=== PATIENT | male | born 1935 | race Caucasian/White ===

== ENCOUNTER 2023-01-03 09:06 | Outpatient (CLI) | payer MEDICARE, SELFPAY | END 2023-01-03 09:07 | disposition home or self-care (01) | LOC: LONREF 09:07 | PROVIDERS: PCP Family Medicine; Visit Provider Family Medicine | DX: Z00.00 Encounter for general adult medical examination without abnormal findings (principal); Z13.1 Encounter for screening for diabetes mellitus | CPT/HCPCS: 80048 ==

== ENCOUNTER 2023-11-16 13:41 | Outpatient (CLI) | payer MEDICARE, SELFPAY | END 2023-11-16 13:42 | disposition home or self-care (01) | LOC: NFLDUCREF 13:42 | PROVIDERS: PCP Family Medicine; Visit Provider Physician Assistant | DX: R06.02 Shortness of breath (principal) | CPT/HCPCS: 84484; 85379 ==

== ENCOUNTER 2024-11-28 16:15 | Inpatient (IN) | payer MEDICARE, SELFPAY ==
[2024-11-28] VITALS (51 sets, daily range): BP systolic 101–170; BP diastolic 47–128; PULSE 123–169; RESP 15–30; TEMP 36.6–37.1; O2SAT 90–97; BMI 26.3
--- OUTSIDE RECORDS SUMMARY | 2024-11-28 16:17 | XMS_ITS | Clinical Summary ---
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 30 tablet 11 08/12/2014 Active lisinopril (PRINIVIL; ZESTRIL) 10 mg tabletIndications :Unspecified essential hypertension Take 1 tablet by mouth once daily. 30 tablet 11 08/12/2014 Active Active Problems Problem Noted Date Diagnosed Date Pain in joint, shoulder region 09/18/2007 Unspecified essential hypertension 07/12/2007 Immunizations Immunization Administration Dates Next Due Td, Preservative Free (age >= 7 Years) 8 Family History Medical History Relation Name Comments Other Brother 5 two infanc y, 2 in 70-'s not sure reason Other Father d81 cancer Other Mother d96 Other Sister 5 d65 [place] Heart Disease Son congenital. 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 Gender Identity Not on file Sexual Orientation Not on file Occupation Industry Job Start Date Job End Date [email or web address] Not on file Not on file Not on file Obstetrics History Last Filed Vital Signs Vital Sign Reading Time Taken Comments Blood Pressure 177/97 08/12/2014 1:08 PM CDT Pulse 110 08/12/2014 1:04 PM CDT Temperature 36.4 C (97.6 F) 07/12/2007 9:59 AM CDT Respiratory Rate - - Oxygen Saturation 96% 08/12/2014 1:04 PM CDT Inhaled Oxygen Concentration - - Weight 79.6 kg (175 lb 6.4 oz) 08/12/2014 1:04 P M CDT Height 165.1 cm (5' 5) 08/12/2014 1:04 PM CDT Body Mass Index 29.19 08/12/2014 1:04 PM CDT Plan of Treatment Health Maintenance Due Date Last Done Comments Depression screening for age 12+ 1949 BMI (ht and wt on same day) for age 18+ 08/09/1955 Pneumococcal series for age 50+ (1 of 1 - PCV) 08/09/1987 Zoster (shingles) series for age 50+ (1 of 2) 08/09/1987 RSV vaccine for adults or (1 - 1-dose 75+ series) 2012 Tetanus booster 07/11/2017 07/12/2007 COVID-19 vaccine series (1 - 2023- season) 2024 Influenza Vaccine (#1) 2024 Hepatitis B series for 19+ Aged Out N o longer eligible based on patient's age to complete this topic Insurance BLUE CROSS [employer] BLUE MR [place] ONLY Care Teams Fire Extinguisher Inspector Relationship Specialty Start Date End Date Votel, Wm Robles MD [address] [place] [address] PCP - General Family Practice 08/05/14
--- NOTE | 2024-11-28 17:17 | CRLHL7_ITS ---
For Patients: As a result of the Century Cures Act, medical imaging exams and procedure reports are released immediately into your electronic medical record. You may view this report before your referring provider. If you have questions, please contact your health care provider. INDICATION: Atrial fibrillation. TECHNIQUE: Chest 1 view. COMPARISON: 11/16/2023. FINDINGS: Cardiovascular and mediastinum: Normal heart size. Atherosclerotic thoracic aorta. Lungs and pleural spaces: Bibasilar opacities. Blunting of both costophrenic angles. No pneumothorax. Bones and soft tissues: Unremarkable for age. IMPRESSION: Bibasilar opacities with blunting of both costophrenic angles may represent pulmonary edema and/or atelectasis with small pleural effusions. Multifocal infection could also appear similar. Dictated by Jonathan Ku MD @ 11/28/2024 6:25:44 PM (Electronically Signed)
[2024-11-28 17:24] LABS: Lactate Sepsis w/Reflex* 1.5 mmol/L (0.5-1.9)
[2024-11-28] MEDS: dilTIAZem 5 MG/ML inj 10 MG IVP ×2 (17:25→18:42)
--- NOTE | 2024-11-28 17:30 | ED.GENADULT ---
HPI - General Adult General Date Seen: 11/28/24 Chief complaint: Arrhythmia/Palpitations Stated complaint: swollen legs, dark/red urine Time Seen by Provider: 11/28/24 17:04 History of Present Illness HPI narrative: Patient is an 89-year-old brought in by his and daughter. His says that she was concerned this morning diffuse she noted that his urine was very dark and looked bloody. Also, she said that she was going to put some ointment on a couple of bug bites to that he had, and when he pulled up his pant legs today so that she could do that she noticed that he had a lot of swelling in his legs which she says is not normal for him. She is not sure how long the been swollen. Patient himself is hard of hearing but does answer questions, he is quite taciturn, gives me one-word responses to the majority of my questions. He was noted to be tachycardic in triage, he says that he can feel that his heart is going faster than usual but he is not sure how long that it has been going on. He denies any chest pain or shortness of breath. He does not have much comment on his legs. Denies prior hematuria. Denies any abdominal or back pain. No fevers. No orthopnea or PND. Does not smoke. He is not anticoagulated. No prior history of atrial fibrillation. Related Data Home Medications ?Medication ?Instructions ?Recorded ?Confirmed calcium carbonate (Calcium 500) 500 mg PO QDAY 01/03/23 11/16/23 cholecalciferol (vitamin D3) 125 125 mcg PO QDAY 01/03/23 11/16/23 mcg (5,000 unit) capsule multivitamin 1 tab PO QDAY 01/03/23 11/16/23 Allergies Allergy/AdvReac Type Severity Reaction Status Date / Time No Known Drug Allergies Allergy Unverified 11/16/23 13:00 Review of Systems Status of ROS: Reports: 10 or more systems reviewed and unremarkable except as noted in History and below [facility] Medical History (Updated 11/28/24 @ 20:42 by Nichole Harp MD) 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 - Other specified disorders of peritoneum (ICD-10) Elevated LFTs ?R79.89 - Other specified abnormal findings of blood chemistry (ICD-10) Hearing loss ?H91.90 - Unspecified hearing loss, unspecified ear (ICD-10) 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 - Spinal stenosis, lumbar region without neurogenic claudication (ICD-10) Vitiligo ?L80 - Vitiligo (ICD-10) Family history of colon cancer ?Z80.0 - Family history of malignant neoplasm of digestive organs (ICD-10) Carpal tunnel syndrome ?G56.00 - Carpal tunnel syndrome, unspecified upper limb (ICD-10) Family History Other Colon cancer Social History What is your current living situation?: declined to answer Problems where you live: declined to answer In the past 12 months, utilities in danger of being shut off: declined to answer In past 12 months, lack of transportation kept you from medical appts, meetings, work, or getting things needed for daily living: declined to answer In the past 12 mos, have been you worried that your food would run out before you had money to buy more?: declined to answer In the past 12 mos, the food you bought just didn't last and you didn't have money to buy more?: declined to answer How often does anyone, including family, friends and others, physically hurt you: decline to answer How often does anyone, including family, friends and others, insult or talk down to you: decline to answer How often does anyone, including family, friends and others, threaten you with harm: decline to answer How often does anyone, including family, friends and others, scream or curse at you: decline to answer Health Related Social Needs: unsheltered homelessness (Z59.02) Exam Narrative: Exam Narrative: Vital signs reviewed In general, alert, nontoxic elderly male. He does not appear dyspneic at all. Head: Normocephalic, atraumatic. Eyes: Sclera clear. Pupils equal and reactive. ENT: Mucous membranes moist. Neck: Supple without adenopathy. Heart: Tachycardic, regular, no obvious murmur but rate is too fast for me to really here. Lungs: Clear. No increased work of breathing, crackles or wheezes. Abdomen: Soft, nontender to palpation. Extremities: Moderate edema in both legs below the knees. No erythema, no calf tenderness. Neurologic: Alert, conversant. Speech fluent, face symmetric. Moves all extremities equally. Skin: Warm, dry well perfused. Affect: Normal. Const: Vital Signs, click to edit/add: Vital Signs - 24 hr 11/28/24 16:54 11/28/24 17:20 11/28/24 17:21 Temperature 98.7 F Pulse Rate 149 H 143 H Pulse Rate [Pulse Oximeter] 147 H Respiratory Rate 20 20 20 Blood Pressure 136/113 H Blood Pressure [Ri ght Upper Arm] 138/85 Pulse Oximetry 95 93 94 Oxygen Delivery Me od Room Air 11/28/24 17:29 11/28/24 17:30 11/28/24 17:32 Temperature Pulse Rate 158 H 166 H 140 H Pulse Rate [Pulse Oximeter] Respiratory Rate 22 21 21 Blood Pressure 129/103 H 122/90 H Blood Pressure [Ri ght Upper Arm] Pulse Oximetry 94 94 92 [facility] 17:33 11/28/24 17:45 11/28/24 17:47 Temperature Pulse Rate 155 H 152 H 129 H Pulse Rate [Pulse Oximeter] Respiratory Rate 22 23 24 Blood Pressure 121/96 H Blood Pressure [Ri ght Upper Arm] Pulse Oximetry 92 91 92 Oxygen Delivery Me od 11/28/24 18:00 11/28/24 18:02 11/28/24 18:03 Temperature Pulse Rate 160 H 123 H 132 H Pulse Rate [Pulse Oximeter] Respiratory Rate 22 24 16 Blood Pressure 132/118 H Blood Pressure [Ri ght Upper Arm] Pulse Oximetry 93 93 92 Oxygen Delivery Me od 11/28/24 18:15 11/28/24 18:18 11/28/24 18:30 Temperature Pulse Rate 137 H 146 H Pulse Rate [Pulse Oximeter] Respiratory Rate 21 20 19 Blood Pressure 118/107 H Blood Pressure [Ri ght Upper Arm] Pulse Oximetry 94 96 [facility]/28/24 18:33 11/28/24 18:34 11/28/24 18:45 Temperature Pulse Rate 137 H 136 H 159 H Pulse Rate [Pulse Oximeter] Respiratory Rate 30 H 24 23 Blood Pressure 126/106 H Blood Pressure [Ri ght Upper Arm] Pulse Oximetry 95 95 95 Oxygen Delivery Me od 11/28/24 18:47 11/28/24 18:48 11/28/24 19:15 Temperature Pulse Rate 133 H 148 H Pulse Rate [Pulse Oximeter] Respiratory Rate 22 17 Blood Pressure 122/91 H Blood Pressure [Ri ght Upper Arm] Pulse Oximetry 93 94 Oxygen Delivery Me thod 11/28/24 19:17 11/28/24 19:30 11/28/24 19:32 Temperature Pulse Rate 137 H 157 H 145 H Pulse Rate [Pulse Oximeter] Respiratory Rate 22 22 18 Blood Pressure 138/99 H 153/114 H Blood Pressure [Ri ght Upper Arm] Pulse Oximetry 92 94 94 Oxygen Delivery Me thod 11/28/24 19:45 11/28/24 19:47 11/28/24 19:48 Temperature Pulse Rate 148 H 169 H Pulse Rate [Pulse Oximeter] Respiratory Rate 21 20 16 Blood Pressure 163/128 H Blood Pressure [Ri ght Upper Arm] Pulse Oximetry 96 95 Oxygen Delivery Me thod 11/28/24 20:00 11/28/24 20:01 11/28/24 20:17 Temperature Pulse Rate 157 H Pulse Rate [Pulse Oximeter] Respiratory Rate 15 20 Blood Pressure 147/108 H 134/105 H Blood Pressure [Ri ght Upper Arm] Pulse Oximetry 92 Oxygen Delivery Mo thod 11/28/24 20:18 Temperature Pulse Rate 138 H Pulse Rate [Pulse Oximeter] Respiratory Rate 24 Blood Pressure Blood Pressure [Ri ght Upper Arm] Pulse Oximetry 94 Oxygen Delivery Me thod Course Course ED Course: After placement in the room, he had an EKG done, this shows atrial fibrillation with a rapid ventricular response, his heart rate vacillated between 140s up to 180 or so. He seems to be tolerating this well, his blood pressure is okay. He does have quite a bit of fluid in his legs, would suspect this is related to some failure due to his atrial fibrillation, diagnostic considerations include acute coronary syndrome, PE, infection, metabolic derangement, heart failure, among others. We also need to evaluate the urine, will get a UA when he is able. Labs are all reviewed, most notable for an initial troponin of 0.06, normal renal function, normal electrolytes, an elevated D-dimer of 6, an elevated BNP of 45 90. I reviewed his chest x-ray, he has what is likely vascular congestion and pulmonary edema with some effusions on both sides. Radiology reads this as bibasilar opacities with blunting of both costophrenic angles may represent pulmonary edema and/or atelectasis with small pleural effusions. Multifocal infection could also appears similar, I do not think his clinical presentation is consistent with an infectious process however. I did give him 2 doses of 10 mg of IV diltiazem, his rate was improved into the 120 is for while but is back into the 160s. He was actually kind of agitated and really wanted to leave, and I think this is partially is why his heart rate went back up. However, will try dose of metoprolol and if that is not effective then would plan to do a diltiazem drip. I was able to convince him that going home was a bad idea so he has agreed to stay. Will give 40 mg of IV Lasix. Repeat troponin is pending but I suspect that his mildly elevated troponin is related to his heart failure and tachycardia. He does not have chest pain, EKG by my review showed atrial fibrillation with a rate of [address] segment changes. I did a CT scan of the chest just to rule out pulmonary embolism given his elevated D-dimer, I did not see evidence of PE, he does have pleural effusions and pulmonary edema. Radiology report reviewed. I did a CT of the abdomen given his gross hematuria and decreased urine output does to make sure there was not an obstructive process. Radiology report reviewed, they are multiple findings but none directly related to his hematuria. He does have either pericholecystic fluid or some gallbladder wall edema, he also has anasarca and I tend to think that this is the result of his anasarca given that he is not have any abdominal pain or tenderness. Other findings reviewed, can be addressed by hospitalist if needed. Transfer to the floor after discussion with hospitalist. Vital Signs Vital signs: Initial Vital Signs Temperature 98.7 F 11/28/24 16:54 Temperature Source Temporal Artery Scan 11/28/24 16:54 Pulse Rate 147 H 11/28/24 16:54 Pulse Rhythm Irregular 11/28/24 16:54 Respiratory Rate 20 11/28/24 16:54 Blood Pressure 138/85 11/28/24 16:54 Blood Pressure Mean 102 11/28/24 16:54 Blood Pressure Position Sitting 11/28/24 16:54 Pulse Oximetry 95 11/28/24 16:54 Oxygen Delivery Method Room Air 11/28/24 16:54 Vital Signs Temperature 98.7 F 11/28/24 16:54 Pulse Rate 147 H 11/28/24 16:54 Respiratory Rate 11/28/24 16:54 Blood Pressure 138/85 11/28/24 16:54 Pulse Oximetry 95 11/28/24 16:54 Oxygen Delivery Method Room Air 11/28/24 16:54 Temperature 98.7 F 11/28/24 16:54 Pulse Rate 138 H 11/28/24 20:18 Respiratory Rate 24 11/28/24 20:18 Blood Pressure 134/105 H 11/28/24 20:17 Pulse Oximetry 94 11/28/24 20:18 Oxygen Delivery Method Room Air 11/28/24 16:54 Medications Administered Medications: Discontinued Medications Generic Name Dose Route Start Last Admin Trade Name Freq PRN Reason Stop Dose Admin Diltiazem HCl 10 mg 11/28/24 17:17 11/28/24 17:25 Diltiazem 5 Mg/Ml Inj IVP 11/28/24 17:18 10 mg ONCE ONE Administration Diltiazem HCl 10 mg 11/28/24 18:36 11/28/24 18:42 Diltiazem 5 Mg/Ml Inj IVP 11/28/24 18:37 10 mg ONCE ONE Administration Furosemide 40 mg 11/28/24 20:02 11/28/24 20:14 Furosemide 10 Mg/Ml Inj IVP 11/28/24 20:03 40 mg ONCE ONE Administration Metoprolol Tartrate 5 mg 11/28/24 20:02 11/28/24 20:11 Metoprolol Tartrate 1 Mg/Ml Inj IVP 11/28/24 20:03 5 mg ONCE ONE Administration Medical Decision Making Lab Data Labs: Lab Results 11/28/24 11/28/24 11/28/24 Range/Units 17:10 17:17 17:18 WBC 8.85 (4.50-11.00) K/uL RBC 4.39 (4.30-5.90) m/uL Hgb 13.9 (13.5-17.5) gm/dL Hct 41.6 (37.0-53.0) % MCV 95 (80-100) fL MCH 32 (26-34) pg MCHC 33 (32-36) gm/dL RDW Coeff of Kuldeep 13.1 (11.5-15.5) % Plt Count 145 (140-440) K/uL Neut % (Auto) 65.5 (42.0-72.0) % Lymph % (Auto) 20.9 (20-44) % [place] % (Auto) 11.6 H (0.0-11.0) % Eos % (Auto) 1.1 (0.0-7.0) % Baso % (Auto) 0.7 (0.0-3.0) % Neut # (Auto) 5.79 (1.7-7.0) K/uL Lymph # (Auto) 1.85 (0.90-2.90) K/uL [place] # (Auto) 1.00 H (0.00-0.90) K/UL Eos # (Auto) 0.10 (0.00-0.50) K/uL Baso # (Auto) 0.06 (0.00-0.30) K/uL Abs Immat Gran (auto) 0.02 (0.00-0.30) K/uL Imm/Tot Granulo (auto) 0.2 % INR 1.12 H (0.91-1.10) D-Dimer Quant (PE/DVT) 6.17 H (0.00-0.50) ug/ml Sodium 132 L (135-149) mmol/L Potassium 4.1 (3.6-5.1) mmol/L Chloride 100 (96-114) mmol/L Carbon Dioxide 22 (20-32) mmol/L Anion Gap 10 (7-15) mEq/L BUN 23 (7-30) mg/dL Creatinine 1.2 (0.5-1.5) mg/dL Estimated Creat Clear 39.14 Estimated GFR 59 ml/min Glucose 125 H (60-115) mg/dL Lactate 1.5 (0.5-1.9) mmol/L Calcium 9.2 (8.4-10.6) mg/dL Magnesium 2.0 (1.5-2.6) mg/dL Total Bilirubin 1.0 (0.1-1.5) mg/dL Direct Bilirubin 0.4 (0.0-0.5) mg/dL AST 36 H (12-35) U/L ALT 56 H (4-50) U/L Alkaline Phosphatase 76 (40-150) U/L C-Reactive Protein 1.0 (0.5-1.0) mg/dL NT-Pro-B Natriuret Pep 4590 H (See Note) pg/mL Total Protein 7.7 (6.0-8.3) g/dL Albumin 4.5 (3.3-5.0) g/dL TSH 1.490 (0.270-4.200) uIU/mL Urine Color Urine Appearance Urine pH Ur Specific [place] Urine Protein Urine Glucose (UA) Urine Ketones Urine Blood Urine Nitrite Urine Bilirubin Urine Urobilinogen Ur Leukocyte Esterase Urine RBC Urine WBC Urine WBC Clumps Ur Squamous Epith Cells [place] Biurate Crystals Calcium Carbonate Cryst Calcium Phosphate Cryst Calcium Oxalate Crystal Cystine Crystals Uric Acid Crystals Triple Phos Crystals Sulfur Crystals Cholesterol Crystals Tyrosine Crystals Hippuric Acid Crystals Amorphous Sediment Other Sediment Urine Bacteria Fatty Casts Hyaline Casts Fine Granular Casts Coarse Granular Casts Waxy Casts RBC Casts WBC Casts Other Casts Urine Starch Urine Mucus Urine Trichomonas Urine Yeast Lab Acknowledgement POC Troponin I 0.06 H (0.01-0.04) ng/ml 11/28/24 11/28/24 11/28/24 Range/Units 18:23 18:23 18:23 WBC (4.50-11.00) K/uL RBC (4.30-5.90) m/uL Hgb (13.5-17.5) gm/dL Hct (37.0-53.0) % MCV (80-100) fL MCH (26-34) pg MCHC (32-36) gm/dL RDW Coeff of Kuldeep (11.5-15.5) % Plt Count (140-440) K/uL Neut % (Auto) (42.0-72.0) % Lymph % (Auto) (20-44) % [place] % (Auto) (0.0-11.0) % Eos % (Auto) (0.0-7.0) % Baso % (Auto) (0.0-3.0) % Neut # (Auto) (1.7-7.0) K/uL Lymph # (Auto) (0.90-2.90) K/uL [place] # (Auto) (0.00-0.90) K/UL Eos # (Auto) (0.00-0.50) K/uL Baso # (Auto) (0.00-0.30) K/uL Abs Immat Gran (auto) (0.00-0.30) K/uL Imm/Tot Granulo (auto) % INR (0.91-1.10) D-Dimer Quant (PE/DVT) (0.00-0.50) ug/ml Sodium (135-149) mmol/L Potassium (3.6-5.1) mmol/L Chloride (96-114) mmol/L Carbon Dioxide (20-32) mmol/L Anion Gap (7-15) mEq/L BUN (7-30) mg/dL Creatinine (0.5-1.5) mg/dL Estimated Creat Clear Estimated GFR ml/min Glucose (60-115) mg/dL Lactate (0.5-1.9) mmol/L Calcium (8.4-10.6) mg/dL Magnesium (1.5-2.6) mg/dL Total Bilirubin (0.1-1.5) mg/dL Direct Bilirubin (0.0-0.5) mg/dL AST (12-35) U/L ALT (4-50) U/L Alkaline Phosphatase (40-150) U/L C-Reactive Protein (0.5-1.0) mg/dL NT-Pro-B Natriuret Pep (See Note) pg/mL Total Protein (6.0-8.3) g/dL Albumin (3.3-5.0) g/dL TSH (0.270-4.200) uIU/mL Urine Color Cancelled Brown A Urine Appearance Cancelled Cloudy A Urine pH Cancelled Ur Specific [place] Urine Protein Urine Glucose (UA) Urine Ketones Urine Blood Urine Nitrite Urine Bilirubin Urine Urobilinogen Ur Leukocyte Esterase Urine RBC Urine WBC Urine WBC Clumps Ur Squamous Epith Cells Vamshi Biurate Crystals Calcium Carbonate Cryst Calcium Phosphate Cryst Calcium Oxalate Crystal Cystine Crystals Uric Acid Crystals Triple Phos Crystals Sulfur Crystals Cholesterol Crystals Tyrosine Crystals Hippuric Acid Crystals Amorphous Sediment Other Sediment Urine Bacteria Fatty Casts Hyaline Casts Fine Granular Casts Coarse Granular Casts Waxy Casts RBC Casts WBC Casts Other Casts Urine Starch Urine Mucus Urine Trichomonas Urine Yeast Lab Acknowledgement POC Troponin I (0.01-0.04) ng/ml 11/28/24 11/28/24 11/28/24 Range/Units 18:23 18:23 18:23 WBC (4.50-11.00) K/uL RBC (4.30-5.90) m/uL Hgb (13.5-17.5) gm/dL Hct (37.0-53.0) % MCV (80-100) fL MCH (26-34) pg MCHC (32-36) gm/dL RDW Coeff of Kuldeep (11.5-15.5) % Plt Count (140-440) K/uL Neut % (Auto) (42.0-72.0) % Lymph % (Auto) (20-44) % [place] % (Auto) (0.0-11.0) % Eos % (Auto) (0.0-7.0) % Baso % (Auto) (0.0-3.0) % Neut # (Auto) (1.7-7.0) K/uL Lymph # (Auto) (0.90-2.90) K/uL [place] # (Auto) (0.00-0.90) K/UL Eos # (Auto) (0.00-0.50) K/uL Baso # (Auto) (0.00-0.30) K/uL Abs Immat Gran (auto) (0.00-0.30) K/uL Imm/Tot Granulo (auto) % INR (0.91-1.10) D-Dimer Quant (PE/DVT) (0.00-0.50) ug/ml Sodium (135-149) mmol/L Potassium (3.6-5.1) mmol/L Chloride (96-114) mmol/L Carbon Dioxide (20-32) mmol/L Anion Gap (7-15) mEq/L BUN (7-30) mg/dL Creatinine (0.5-1.5) mg/dL Estimated Creat Clear Estimated GFR ml/min Glucose (60-115) mg/dL Lactate (0.5-1.9) mmol/L Calcium (8.4-10.6) mg/dL Magnesium (1.5-2.6) mg/dL Total Bilirubin (0.1-1.5) mg/dL Direct Bilirubin (0.0-0.5) mg/dL AST (12-35) U/L ALT (4-50) U/L Alkaline Phosphatase (40-150) U/L C-Reactive Protein (0.5-1.0) mg/dL NT-Pro-B Natriuret Pep (See Note) pg/mL Total Protein (6.0-8.3) g/dL Albumin (3.3-5.0) g/dL TSH (0.270-4.200) uIU/mL Urine Color Urine Appearance Urine pH 6.0 Ur Specific [place] Cancelled >= 1.030 Urine Protein Cancelled 2+ A Urine Glucose (UA) Cancelled Urine Ketones Urine Blood Urine Nitrite Urine Bilirubin Urine Urobilinogen Ur Leukocyte Esterase Urine RBC Urine WBC Urine WBC Clumps Ur Squamous Epith Cells [place] Biurate Crystals Calcium Carbonate Cryst Calcium Phosphate Cryst Calcium Oxalate Crystal Cystine Crystals Uric Acid Crystals Triple Phos Crystals Sulfur Crystals Cholesterol Crystals Tyrosine Crystals Hippuric Acid Crystals Amorphous Sediment Other Sediment Urine Bacteria Fatty Casts Hyaline Casts Fine Granular Casts Coarse Granular Casts Waxy Casts RBC Casts WBC Casts Other Casts Urine Starch Urine Mucus Urine Trichomonas Urine Yeast Lab Acknowledgement POC Troponin I (0.01-0.04) ng/ml 11/28/24 11/28/24 11/28/24 Range/Units 18:23 18:23 18:23 WBC (4.50-11.00) K/uL RBC (4.30-5.90) m/uL Hgb (13.5-17.5) gm/dL Hct (37.0-53.0) % MCV (80-100) fL MCH (26-34) pg MCHC (32-36) gm/dL RDW Coeff of Kuldeep (11.5-15.5) % Plt Count (140-440) K/uL Neut % (Auto) (42.0-72.0) % Lymph % (Auto) (20-44) % [place] % (Auto) (0.0-11.0) % Eos % (Auto) (0.0-7.0) % Baso % (Auto) (0.0-3.0) % Neut # (Auto) (1.7-7.0) K/uL Lymph # (Auto) (0.90-2.90) K/uL [place] # (Auto) (0.00-0.90) K/UL Eos # (Auto) (0.00-0.50) K/uL Baso # (Auto) (0.00-0.30) K/uL Abs Immat Gran (auto) (0.00-0.30) K/uL Imm/Tot Granulo (auto) % INR (0.91-1.10) D-Dimer Quant (PE/DVT) (0.00-0.50) ug/ml Sodium (135-149) mmol/L Potassium (3.6-5.1) mmol/L Chloride (96-114) mmol/L Carbon Dioxide (20-32) mmol/L Anion Gap (7-15) mEq/L BUN (7-30) mg/dL Creatinine (0.5-1.5) mg/dL Estimated Creat Clear Estimated GFR ml/min Glucose (60-115) mg/dL Lactate (0.5-1.9) mmol/L Calcium (8.4-10.6) mg/dL Magnesium (1.5-2.6) mg/dL Total Bilirubin (0.1-1.5) mg/dL Direct Bilirubin (0.0-0.5) mg/dL AST (12-35) U/L ALT (4-50) U/L Alkaline Phosphatase (40-150) U/L C-Reactive Protein (0.5-1.0) mg/dL NT-Pro-B Natriuret Pep (See Note) pg/mL Total Protein (6.0-8.3) g/dL Albumin (3.3-5.0) g/dL TSH (0.270-4.200) uIU/mL Urine Color Urine Appearance Urine pH Ur Specific [place] Urine Protein Urine Glucose (UA) Negative Urine Ketones Cancelled 1+ A Urine Blood Cancelled 3+ A Urine Nitrite Cancelled Urine Bilirubin Urine Urobilinogen Ur Leukocyte Esterase Urine RBC Urine WBC Urine WBC Clumps Ur Squamous Epith Cells Vamshi Biurate Crystals Calcium Carbonate Cryst Calcium Phosphate Cryst Calcium Oxalate Crystal Cystine Crystals Uric Acid Crystals Triple Phos Crystals Sulfur Crystals Cholesterol Crystals Tyrosine Crystals Hippuric Acid Crystals Amorphous Sediment Other Sediment Urine Bacteria Fatty Casts Hyaline Casts Fine Granular Casts Coarse Granular Casts Waxy Casts RBC Casts WBC Casts Other Casts Urine Starch Urine Mucus Urine Trichomonas Urine Yeast Lab Acknowledgement POC Troponin I (0.01-0.04) ng/ml 11/28/24 11/28/24 11/28/24 Range/Units 18:23 18:23 18:23 WBC (4.50-11.00) K/uL RBC (4.30-5.90) m/uL Hgb (13.5-17.5) gm/dL Hct (37.0-53.0) % MCV (80-100) fL MCH (26-34) pg MCHC (32-36) gm/dL RDW Coeff of Kuldeep (11.5-15.5) % Plt Count (140-440) K/uL Neut % (Auto) (42.0-72.0) % Lymph % (Auto) (20-44) % [place] % (Auto) (0.0-11.0) % Eos % (Auto) (0.0-7.0) % Baso % (Auto) (0.0-3.0) % Neut # (Auto) (1.7-7.0) K/uL Lymph # (Auto) (0.90-2.90) K/uL [place] # (Auto) (0.00-0.90) K/UL Eos # (Auto) (0.00-0.50) K/uL Baso # (Auto) (0.00-0.30) K/uL Abs Immat Gran (auto) (0.00-0.30) K/uL Imm/Tot Granulo (auto) % INR (0.91-1.10) D-Dimer Quant (PE/DVT) (0.00-0.50) ug/ml Sodium (135-149) mmol/L Potassium (3.6-5.1) mmol/L Chloride (96-114) mmol/L Carbon Dioxide (20-32) mmol/L Anion Gap (7-15) mEq/L BUN (7-30) mg/dL Creatinine (0.5-1.5) mg/dL Estimated Creat Clear Estimated GFR ml/min Glucose (60-115) mg/dL Lactate (0.5-1.9) mmol/L Calcium (8.4-10.6) mg/dL Magnesium (1.5-2.6) mg/dL Total Bilirubin (0.1-1.5) mg/dL Direct Bilirubin (0.0-0.5) mg/dL AST (12-35) U/L ALT (4-50) U/L Alkaline Phosphatase (40-150) U/L C-Reactive Protein (0.5-1.0) mg/dL NT-Pro-B Natriuret Pep (See Note) pg/mL Total Protein (6.0-8.3) g/dL Albumin (3.3-5.0) g/dL TSH (0.270-4.200) uIU/mL Urine Color Urine Appearance Urine pH Ur Specific [place] Urine Protein Urine Glucose (UA) Urine Ketones Urine Blood Urine Nitrite Negative Urine Bilirubin Cancelled 1+ A Urine Urobilinogen Cancelled 0.2 Ur Leukocyte Esterase Cancelled Urine RBC Urine WBC Urine WBC Clumps Ur Squamous Epith Cells [place] Biurate Crystals Calcium Carbonate Cryst Calcium Phosphate Cryst Calcium Oxalate Crystal Cystine Crystals Uric Acid Crystals Triple Phos Crystals Sulfur Crystals Cholesterol Crystals Tyrosine Crystals Hippuric Acid Crystals Amorphous Sediment Other Sediment Urine Bacteria Fatty Casts Hyaline Casts Fine Granular Casts Coarse Granular Casts Waxy Casts RBC Casts WBC Casts Other Casts Urine Starch Urine Mucus Urine Trichomonas Urine Yeast Lab Acknowledgement POC Troponin I (0.01-0.04) ng/ml 11/28/24 11/28/24 11/28/24 Range/Units 18:23 18:23 18:23 WBC (4.50-11.00) K/uL RBC (4.30-5.90) m/uL Hgb (13.5-17.5) gm/dL Hct (37.0-53.0) % MCV (80-100) fL MCH (26-34) pg MCHC (32-36) gm/dL RDW Coeff of Kuldeep (11.5-15.5) % Plt Count (140-440) K/uL Neut % (Auto) (42.0-72.0) % Lymph % (Auto) (20-44) % [place] % (Auto) (0.0-11.0) % Eos % (Auto) (0.0-7.0) % Baso % (Auto) (0.0-3.0) % Neut # (Auto) (1.7-7.0) K/uL Lymph # (Auto) (0.90-2.90) K/uL [place] # (Auto) (0.00-0.90) K/UL Eos # (Auto) (0.00-0.50) K/uL Baso # (Auto) (0.00-0.30) K/uL Abs Immat Gran (auto) (0.00-0.30) K/uL Imm/Tot Granulo (auto) % INR (0.91-1.10) D-Dimer Quant (PE/DVT) (0.00-0.50) ug/ml Sodium (135-149) mmol/L Potassium (3.6-5.1) mmol/L Chloride (96-114) mmol/L Carbon Dioxide (20-32) mmol/L Anion Gap (7-15) mEq/L BUN (7-30) mg/dL Creatinine (0.5-1.5) mg/dL Estimated Creat Clear Estimated GFR ml/min Glucose (60-115) mg/dL Lactate (0.5-1.9) mmol/L Calcium (8.4-10.6) mg/dL Magnesium (1.5-2.6) mg/dL Total Bilirubin (0.1-1.5) mg/dL Direct Bilirubin (0.0-0.5) mg/dL AST (12-35) U/L ALT (4-50) U/L Alkaline Phosphatase (40-150) U/L C-Reactive Protein (0.5-1.0) mg/dL NT-Pro-B Natriuret Pep (See Note) pg/mL Total Protein (6.0-8.3) g/dL Albumin (3.3-5.0) g/dL TSH (0.270-4.200) uIU/mL Urine Color Urine Appearance Urine pH Ur Specific [place] Urine Protein Urine Glucose (UA) Urine Ketones Urine Blood Urine Nitrite Urine Bilirubin Urine Urobilinogen Ur Leukocyte Esterase Negative Urine RBC Cancelled >100 A Urine WBC Cancelled 0-2 Urine WBC Clumps Cancelled Ur Squamous Epith Cells Cancelled Vamshi Biurate Crystals Calcium Carbonate Cryst Calcium Phosphate Cryst Calcium Oxalate Crystal Cystine Crystals Uric Acid Crystals Triple Phos Crystals Sulfur Crystals Cholesterol Crystals Tyrosine Crystals Hippuric Acid Crystals Amorphous Sediment Other Sediment Urine Bacteria Fatty Casts Hyaline Casts Fine Granular Casts Coarse Granular Casts Waxy Casts RBC Casts WBC Casts Other Casts Urine Starch Urine Mucus Urine Trichomonas Urine Yeast Lab Acknowledgement POC Troponin I (0.01-0.04) ng/ml 11/28/24 11/28/24 11/28/24 Range/Units 18:23 18:23 20:28 WBC (4.50-11.00) K/uL RBC (4.30-5.90) m/uL Hgb (13.5-17.5) gm/dL Hct (37.0-53.0) % MCV (80-100) fL MCH (26-34) pg MCHC (32-36) gm/dL RDW Coeff of Kuldeep (11.5-15.5) % Plt Count (140-440) K/uL Neut % (Auto) (42.0-72.0) % Lymph % (Auto) (20-44) % [place] % (Auto) (0.0-11.0) % Eos % (Auto) (0.0-7.0) % Baso % (Auto) (0.0-3.0) % Neut # (Auto) (1.7-7.0) K/uL Lymph # (Auto) (0.90-2.90) K/uL [place] # (Auto) (0.00-0.90) K/UL Eos # (Auto) (0.00-0.50) K/uL Baso # (Auto) (0.00-0.30) K/uL Abs Immat Gran (auto) (0.00-0.30) K/uL Imm/Tot Granulo (auto) % INR (0.91-1.10) D-Dimer Quant (PE/DVT) (0.00-0.50) ug/ml Sodium (135-149) mmol/L Potassium (3.6-5.1) mmol/L Chloride (96-114) mmol/L Carbon Dioxide (20-32) mmol/L Anion Gap (7-15) mEq/L BUN (7-30) mg/dL Creatinine (0.5-1.5) mg/dL Estimated Creat Clear Estimated GFR ml/min Glucose (60-115) mg/dL Lactate (0.5-1.9) mmol/L Calcium (8.4-10.6) mg/dL Magnesium (1.5-2.6) mg/dL Total Bilirubin (0.1-1.5) mg/dL Direct Bilirubin (0.0-0.5) mg/dL AST (12-35) U/L ALT (4-50) U/L Alkaline Phosphatase (40-150) U/L C-Reactive Protein (0.5-1.0) mg/dL NT-Pro-B Natriuret Pep (See Note) pg/mL Total Protein (6.0-8.3) g/dL Albumin (3.3-5.0) g/dL TSH (0.270-4.200) uIU/mL Urine Color Urine Appearance Urine pH Ur Specific [place] Urine Protein Urine Glucose (UA) Urine Ketones Urine Blood Urine Nitrite Urine Bilirubin Urine Urobilinogen Ur Leukocyte Esterase Urine RBC Urine WBC Urine WBC Clumps Ur Squamous Epith Cells None [place] Biurate Crystals Cancelled Calcium Carbonate Cryst Cancelled Calcium Phosphate Cryst Cancelled Calcium Oxalate Crystal Cancelled Cystine Crystals Cancelled Uric Acid Crystals Cancelled Triple Phos Crystals Cancelled Sulfur Crystals Cancelled Cholesterol Crystals Cancelled Tyrosine Crystals Cancelled Hippuric Acid Crystals Cancelled Amorphous Sediment Cancelled Other Sediment Cancelled Urine Bacteria Cancelled None Fatty Casts Cancelled Hyaline Casts Cancelled Fine Granular Casts Cancelled Coarse Granular Casts Cancelled Waxy Casts Cancelled RBC Casts Cancelled WBC Casts Cancelled Other Casts Cancelled Urine Starch Cancelled Urine Mucus Cancelled Urine Trichomonas Cancelled Urine Yeast Cancelled Lab Acknowledgement Test Added POC Troponin I (0.01-0.04) ng/ml Imaging Data Chest x-ray: Attestation: I have reviewed the pertinent imaging results. Radiologist's impression: Patient: Karrie Mora MR#: [id number] : 1935 Acct:[id number] Loc: ED Service Date: 11/28/[address]: Ordering Physician: Nichole Harp M.D. Date of Service: 11/28/24 Procedure(s): XR chest 1V portable Accession Number(s): [id number] cc: Nichole Harp M.D.; Dayday Rivera M.D.~ For Patients: As a result of the Cures Act, medical imaging exams and procedure reports are released immediately into your electronic medical record. You may view this report before your referring provider. If you have questions, please contact your health care provider. INDICATION: Atrial fibrillation. TECHNIQUE: Chest 1 view. COMPARISON: 11/16/2023. FINDINGS: Cardiovascular and mediastinum: Normal heart size. Atherosclerotic thoracic aorta. Lungs and pleural spaces: Bibasilar opacities. Blunting of both costophrenic angles. No pneumothorax. Bones and soft tissues: Unremarkable for age. IMPRESSION: Bibasilar opacities with blunting of both costophrenic angles may represent pulmonary edema and/or atelectasis with small pleural effusions. Multifocal infection could also appear similar. Dictated by Jonathan Ku MD @ 11/28/2024 6:25:[address] scan - chest: Attestation: I have reviewed the pertinent imaging results. Radiologist's impression: Patient: Karrie Mora MR#: [id number] : 1935 Acct:[id number] Loc: ED Service Date: 11/28/[address]: Ordering Physician: Nichole Harp M.D. Date of Service: 11/28/24 Procedure(s): CT angio chest PE protocol Accession Number(s): [id number] cc: Nichole Harp M.D.; Dayday Rivera M.D.~ For Patients: As a result of the Century Cures Act, medical imaging exams and procedure reports are released immediately into your electronic medical record. You may view this report before your referring provider. If you have questions, please contact your health care provider. INDICATION: Rapid AFib, elevated D-dimer. TECHNIQUE: CT chest PE was acquired with 95 cc Isovue 370 IV contrast. COMPARISON: Chest radiograph and CT abdomen and pelvis from the same day. FINDINGS: Heart and vasculature: Contrast opacification of the pulmonary arterial tree is adequate. No sign of pulmonary embolism. Heart size is normal. Thoracic aorta and pulmonary artery are normal in caliber. Coronary artery and thoracic aorta atherosclerotic calcification. Lungs and pleura: Interlobular septal thickening within the lung bases. Moderate right and small left pleural effusions. No pneumothorax. Lymph nodes/mediastinum: No mediastinal, hilar, or axillary adenopathy. Chest wall: No masses. Upper abdomen: Dictated separately. Bones: Unremarkable for age. IMPRESSION: 1. No pulmonary embolism. 2. Bibasilar interlobular septal thickening with moderate right and small left pleural effusions. Constellation of findings compatible with pulmonary edema/volume overload. Diffuse infection could also appear similar. Please note that all CT scans at this facility use dose modulation, iterative reconstruction, and/or weight-based dosing when appropriate to reduce radiation dose to as low as reasonably achievable. Dictated by Jonathan Ku MD @ 11/28/2024 8:01:[address] scan - abdomen: Attestation: I have reviewed the pertinent imaging results. Radiologist's impression: Patient: KARRIE MORA Facility: [facility] RIS Site . Site : 1935 Study: CT-Abdomen/Pelvis W/ 95CC ISOVUE 370-11/28/2024 7:14:27 PM Ordering Physician: Loyd Varela Final Report: INDICATION: Hematuria, decreased urination. TECHNIQUE: CT abdomen and pelvis acquired with 95 cc of Isovue 370 IV contrast. COMPARISON: Chest CT from the same day. FINDINGS: Lower chest: Dictated separately. Liver: No suspicious mass. Mild periportal edema. Gallbladder and bile ducts: Distended gallbladder with mural thickening versus pericholecystic fluid. Pancreas: Unremarkable. No mass or inflammation. Spleen: Unremarkable. Normal in size. No masses. Adrenal glands: Unremarkable. No nodules. Kidneys: Unremarkable. No suspicious masses, stones, or hydronephrosis. GI tract: Unremarkable. Normal in caliber. No sign of mass or inflammation. No evidence for appendicitis. Vasculature: Normal caliber abdominal aorta with moderate atherosclerotic calcification. Mesenteric arteries are patent. Lymph nodes: Calcified lymph nodes within the leslye hepatis. Peritoneum/Abdominal Wall: Mild anasarca. 5.3 cm calcified lesion within the left central mesentery, nonspecific. No free air or significant free fluid. Pelvis: Mild circumferential bladder wall thickening. Prostatomegaly. Bones: Unremarkable for age. IMPRESSION: 1. Distended gallbladder with mural thickening versus pericholecystic fluid. Recommend correlation for acute cholecystitis. 2. Mild circumferential bladder wall thickening. Recommend correlation for cystitis. 3. Mild anasarca. 4. 5.3 cm calcified lesion within the left central mesentery. Several small calcified lymph nodes within the leslye hepatis. These findings are nonspecific. Differential considerations include sequela of tuberculosis, an inflammatory process, or malignancy/metastatic disease, such as lymphoma. Please note that all CT scans at this facility use dose modulation, iterative reconstruction, and/or weight-based dosing when appropriate to reduce radiation dose to as low as reasonably achievable. Dictated by Jonathan Ku MD @ 11/28/2024 8:10:39 PM Discharge Plan Discharge Clinical Impression: Atrial fibrillation with rapid ventricular response, Congestive heart failure, Hematuria Patient Disposition: Admitted As Inpatient
[2024-11-28 17:37] LABS: Troponin, Point-of-Care* 0.06 ng/ml (0.01-0.04)
[2024-11-28 17:41] LABS: Hematocrit 41.6 % (37.0-53.0); Hemoglobin* 13.9 gm/dL (13.5-17.5); Immature Granulocytes Abs Auto 0.02 K/uL (0.00-0.30); Immature Granulocytes Pct Auto 0.2 %; Lymphocytes Absolute Auto 1.85 K/uL (0.90-2.90); Mean Corpuscular HGB Conc 33 gm/dL (32-36); Mean Corpuscular Hemoglobin 32 pg (26-34); Mean Corpuscular Volume 95 fL (80-100); RDW Coefficient of Variation % 13.1 % (11.5-15.5); Red Blood Count 4.39 m/uL (4.30-5.90); White Blood Count* 8.85 K/uL (4.50-11.00)
[2024-11-28 17:43] LABS: Slide Review Reflex No
[2024-11-28 17:44] LABS: Albumin* 4.5 g/dL (3.3-5.0); Chloride* 100 mmol/L (96-114); Potassium* 4.1 mmol/L (3.6-5.1); Sodium* 132 mmol/L (135-149)
[2024-11-28 17:47] LABS: Alanine Aminotransferase* 56 U/L (4-50); Alkaline Phosphatase* 76 U/L (40-150); Anion Gap 10 mEq/L (7-15); Aspartate Amino Transferase* 36 U/L (12-35); Bilirubin Direct* 0.4 mg/dL (0.0-0.5); Bilirubin Total* 1.0 mg/dL (0.1-1.5); Blood Urea Nitrogen* 23 mg/dL (7-30); Carbon Dioxide* 22 mmol/L (20-32); Creatinine* 1.2 mg/dL (0.5-1.5); Est. Creatinine Clearance* 39.14; Estimated Glomerular Filt Rate 59 ml/min; Total Protein* 7.7 g/dL (6.0-8.3)
[2024-11-28 17:48] LABS: Calcium* 9.2 mg/dL (8.4-10.6); Glucose* 125 mg/dL (60-115)
[2024-11-28 17:59] LABS: NT Pro B Type NatriureticPept* 4590 pg/mL (See Note)
[2024-11-28 18:05] LABS: Prothrombin Time 15.3 Seconds
[2024-11-28 18:06] LABS: D Dimer Quantitative* 6.17 ug/ml (0.00-0.50); INR 1.12 (0.91-1.10)
--- NOTE | 2024-11-28 18:30 | CRLHL7_ITS ---
For Patients: As a result of the 21st Century Cures Act, medical imaging exams and procedure reports are released immediately into your electronic medical record. You may view this report before your referring provider. If you have questions, please contact your health care provider. INDICATION: Hematuria, decreased urination. TECHNIQUE: CT abdomen and pelvis acquired with 95 cc of Isovue 370 IV contrast. COMPARISON: Chest CT from the same day. FINDINGS: Lower chest: Dictated separately. Liver: No suspicious mass. Mild periportal edema. Gallbladder and bile ducts: Distended gallbladder with mural thickening versus pericholecystic fluid. Pancreas: Unremarkable. No mass or inflammation. Spleen: Unremarkable. Normal in size. No masses. Adrenal glands: Unremarkable. No nodules. Kidneys: Unremarkable. No suspicious masses, stones, or hydronephrosis. GI tract: Unremarkable. Normal in caliber. No sign of mass or inflammation. No evidence for appendicitis. Vasculature: Normal caliber abdominal aorta with moderate atherosclerotic calcification. Mesenteric arteries are patent. Lymph nodes: Calcified lymph nodes within the leslye hepatis. Peritoneum/Abdominal Wall: Mild anasarca. 5.3 cm calcified lesion within the left central mesentery, nonspecific. No free air or significant free fluid. Pelvis: Mild circumferential bladder wall thickening. Prostatomegaly. Bones: Unremarkable for age. IMPRESSION: 1. Distended gallbladder with mural thickening versus pericholecystic fluid. Recommend correlation for acute cholecystitis. 2. Mild circumferential bladder wall thickening. Recommend correlation for cystitis. 3. Mild anasarca. 4. 5.3 cm calcified lesion within the left central mesentery. Several small calcified lymph nodes within the leslye hepatis. These findings are nonspecific. Differential considerations include sequela of tuberculosis, an inflammatory process, or malignancy/metastatic disease, such as lymphoma. Please note that all CT scans at this facility use dose modulation, iterative reconstruction, and/or weight-based dosing when appropriate to reduce radiation dose to as low as reasonably achievable. Dictated by Jonathan Ku MD @ 11/28/2024 8:10:39 PM (Electronically Signed)
--- NOTE | 2024-11-28 18:30 | CRLHL7_ITS ---
For Patients: As a result of the Century Cures Act, medical imaging exams and procedure reports are released immediately into your electronic medical record. You may view this report before your referring provider. If you have questions, please contact your health care provider. INDICATION: Rapid AFib, elevated D-dimer. TECHNIQUE: CT chest PE was acquired with 95 cc Isovue 370 IV contrast. COMPARISON: Chest radiograph and CT abdomen and pelvis from the same day. FINDINGS: Heart and vasculature: Contrast opacification of the pulmonary arterial tree is adequate. No sign of pulmonary embolism. Heart size is normal. Thoracic aorta and pulmonary artery are normal in caliber. Coronary artery and thoracic aorta atherosclerotic calcification. Lungs and pleura: Interlobular septal thickening within the lung bases. Moderate right and small left pleural effusions. No pneumothorax. Lymph nodes/mediastinum: No mediastinal, hilar, or axillary adenopathy. Chest wall: No masses. Upper abdomen: Dictated separately. Bones: Unremarkable for age. IMPRESSION: 1. No pulmonary embolism. 2. Bibasilar interlobular septal thickening with moderate right and small left pleural effusions. Constellation of findings compatible with pulmonary edema/volume overload. Diffuse infection could also appear similar. Please note that all CT scans at this facility use dose modulation, iterative reconstruction, and/or weight-based dosing when appropriate to reduce radiation dose to as low as reasonably achievable. Dictated by Jonathan Ku MD @ 11/28/2024 8:01:17 PM (Electronically Signed)
[2024-11-28 18:40] LABS: Appearance Urine Cloudy (Clear)
[2024-11-28 18:42] LABS: TSH With Reflex to FT4* 1.490 uIU/mL (0.270-4.200)
[2024-11-28] MEDS: METOPROLOL TARTRATE 1 MG/ML inj 5 MG IVP (20:11)
--- NOTE | 2024-11-28 20:13 | P.IMHP_ITS ---
Assessment and Plan Assessment and plan (1) Atrial fibrillation with RVR: Problem comment: - new problem 11/28/24 - minimal results with IV Diltiazem and Metoprolol; given persistent HR>150, will start diltiazem drip - initiate Eliquis for anticoagulation Status: Acute (2) Hematuria: Problem comment: - new problem as of 11/28/24, source unclear. Reassuring imaging, no pain - urine culture, continue to follow Status: Acute (3) Heart failure: Problem comment: - appears clinically fluid overloaded with BLE edema, pleural effusions, elevated BNP - likely 2/2 a fib - will obtain TTE to evaluate EF and cardiac structure Status: Acute (4) Elevated LFTs: Problem comment: - 11/28/24: mild elevation of AST/ALT, unknown baseline, normal bili/alk phos - ddx: congestive hepatopathy, NAFLD, cholecystitis - patient asymptomatic, will follow LFTs and obtain TTE Status: Acute (5) Hyponatremia: Problem comment: - mild, Na of 132 - presumably 2/2 CHF - will not fluid restrict at this time, initiating diuresis on 11/28 and will follow electrolytes Status: Acute (6) Calcified mesenteric mass: Problem comment: - per CT 11/29/23: 5.3 cm calcified lesion within the left central mesentery. Several small calcified lymph nodes within the leslye hepatis. These findings are nonspecific. Differential considerations include sequela of tuberculosis, an inflammatory process, or malignancy/metastatic disease, such as lymphoma. - noted to have a similar finding on CT in 2019, per that Radiology read: Impression: Densely calcified left posterior abdominal mass measuring in total 4.3 x 5.2 x 2.5 centimeters, consistent with multiple calcified lymph nodes, representing sequela of prior granulomatous infection or chronic mesenteritis. Other chronic calcified lymph nodes are present within the periportal and portal caval regions. These findings are not suspicious for malignancy or acute inflammation. - given stability, no acute workup needed; outpatient f/u with PCP if within goals of care (discussed with family on 11/28/24) Status: Acute Plan - per above - family updated bedside, questions answered Hospitalist- H&P: HPI History of Present Illness Date Seen: 11/28/24 Chief complaint: swollen legs, dark/red urine Narrative: Remington Mora is a 89 year old male who presented to the ER at the behest of his for dark urine and BLE edema. He started having brown/red urine today. No associated dysuria or back pain. noted that he also had BLE edema today, not usual for him. He's not sure how long he's had edema. No leg pain, no redness, no dyspnea. Hasn't had chest pain, but did had some L-sided neck pain this morning that spontaneously resolved. No abdominal pain or nausea. Having a [employer] hamburger and ice cream for dinner. ER: - found to be in a fib with RVR (new problem), rate 130-160s - hematuria with >100 RBCs - CT A/P: distended gallbladder, bladder wall thickening, anasarca, reassuring kidneys/ureters - CTA Chest: no PE, pulmonary edema - given IV Diltiazem x2 without improvement, then Metoprolol 5mg IV x1 and Lasix 40mg IV x1 PCP is Dr. Rivera. No significant medical history, no daily medications. 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 - Other specified disorders of peritoneum (ICD-10) Elevated LFTs ?R79.89 - Other specified abnormal findings of blood chemistry (ICD-10) Hearing loss ?H91.90 - Unspecified hearing loss, unspecified ear (ICD-10) 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 - Spinal stenosis, lumbar region without neurogenic claudication (ICD-10) Vitiligo ?L80 - Vitiligo (ICD-10) Family history of colon cancer ?Z80.0 - Family history of malignant neoplasm of digestive organs (ICD-10) Carpal tunnel syndrome ?G56.00 - Carpal tunnel syndrome, unspecified upper limb (ICD-10) Family History Other Colon cancer Social History (Updated 11/28/24 @ 21:47 by Darby Nazario MD) Narrative: [place] near [place]. Remote history of smoking, no current alcohol use. Currently full code as of 11/28/24, family will have a discussion regarding goals of care during stay. What is your current living situation?: declined to answer Problems where you live: declined to answer In the past 12 months, utilities in danger of being shut off: declined to answer In past 12 months, lack of transportation kept you from medical appts, meetings, work, or getting things needed for daily living: declined to answer In the past 12 mos, have been you worried that your food would run out before you had money to buy more?: declined to answer In the past 12 mos, the food you bought just didn't last and you didn't have money to buy more?: declined to answer How often does anyone, including family, friends and others, physically hurt you : decline to answer How often does anyone, including family, friends and others, insult or talk down to you: decline to answer How often does anyone, including family, friends and others, threaten you with harm: decline to answer How often does anyone, including family, friends and others, scream or curse at you: decline to answer Health Related Social Needs: unsheltered homelessness (Z59.02) Meds Home Medications and Allergies Home Medications ?Medication ?Instructions ?Recorded ?Confirmed ?Type calcium carbonate (Calcium 500) 500 mg PO QDAY 3 11/16/23 History cholecalciferol (vitamin D3) 125 125 mcg PO QDAY 01/0311/16/23 History mcg (5,000 unit) capsule multivitamin 1 tab PO QDAY 01/03/2311/15 History Allergies Allergy/AdvReac Type Severity Reaction Status Date / Time No Known Drug Allergies Allergy Unverified 11/16/23 13:00 Exam Narrative: Exam Narrative: GEN: Alert and sitting comfortably in bed, nontoxic HEENT: Very hard of hearing, no scleral icterus CV: Irregularly irregular, rate 130s R: No wheezing, bibasilar rales Back: Normal contours, scattered SKs Ext: 2-3+ pitting edema up to knees Skin: No concerning skin lesions or rashes on exposed skin Neuro: No focal deficits, no resting tremor of extremities Psych: Query MCI vs hearing loss, no agitation Const: Vital Signs, click to edit/add: Vital Signs - 24 hr 11/28/24 16:54 11/28/24 17:20 11/28/24 17:21 Temperature 98.7 F Pulse Rate 149 H 143 H Pulse Rate [Pulse Oximeter] 147 H Respiratory Rate 20 20 20 Blood Pressure 136/113 H Blood Pressure [Ri ght Upper Arm] 138/85 Pulse Oximetry 95 93 94 Oxygen Delivery Me od Room Air 11/28/24 17:29 11/28/24 17:30 11/28/24 17:32 Temperature Pulse Rate 158 H 166 H 140 H Pulse Rate [Pulse Oximeter] Respiratory Rate 22 21 21 Blood Pressure 129/103 H 122/90 H Blood Pressure [Ri ght Upper Arm] Pulse Oximetry 94 94 [facility]28[facility] 17:33 11/28/24 17:45 11/28/24 17:47 Temperature Pulse Rate 155 H 152 H 129 H Pulse Rate [Pulse Oximeter] Respiratory Rate 22 23 24 Blood Pressure 121/96 H Blood Pressure [Ri ght Upper Arm] Pulse Oximetry 92 91 92 Oxygen Delivery Me od 11/28/24 18:00 11/28/24 18:02 11/28/24 18:03 Temperature Pulse Rate 160 H 123 H 132 H Pulse Rate [Pulse Oximeter] Respiratory Rate 22 24 16 Blood Pressure 132/118 H Blood Pressure [Ri ght Upper Arm] Pulse Oximetry 93 93 92 [facility] 11/28/24 18:15 11/28/24 18:18 11/28/24 18:30 Temperature Pulse Rate 137 H 146 H Pulse Rate [Pulse Oximeter] Respiratory Rate 21 20 19 Blood Pressure 118/107 H Blood Pressure [Ri ght Upper Arm] Pulse Oximetry 94 96 [facility] 11/28/24 18:33 11/28/24 18:34 11/28/24 18:45 Temperature Pulse Rate 137 H 136 H 159 H Pulse Rate [Pulse Oximeter] Respiratory Rate 30 H 24 23 Blood Pressure 126/106 H Blood Pressure [Ri ght Upper Arm] Pulse Oximetry 95 95 95 [facility] 11/28/24 18:47 11/28/24 18:48 11/28/24 19:15 Temperature Pulse Rate 133 H 148 H Pulse Rate [Pulse Oximeter] Respiratory Rate 22 17 Blood Pressure 122/91 H Blood Pressure [Ri ght Upper Arm] Pulse Oximetry 93 94 Oxygen Delivery Me od 11/28/24 19:17 11/28/24 19:30 11/28/24 19:32 Temperature Pulse Rate 137 H 157 H 145 H Pulse Rate [Pulse Oximeter] Respiratory Rate 22 22 18 Blood Pressure 138/99 H 153/114 H Blood Pressure [Ri ght Upper Arm] Pulse Oximetry 92 94 94 [facility] 11/28/24 19:45 11/28/24 19:47 Temperature Pulse Rate 148 H 169 H Pulse Rate [Pulse Oximeter] Respiratory Rate 21 20 Blood Pressure 163/128 H Blood Pressure [Ri ght Upper Arm] Pulse Oximetry 96 95 [facility] - H&P: Result Labs Labs: Short CBC 11/28/24 Range/Units 17:10 WBC 8.85 (4.50-11.00) K/uL Hgb 13.9 (13.5-17.5) gm/dL Hct 41.6 (37.0-53.0) % Plt Count 145 (140-440) K/uL BMP 11/28/24 17:10 Sodium 132 L Potassium 4.1 Chloride 100 Carbon Dioxide 22 BUN 23 Creatinine 1.2 Glucose 125 H Calcium 9.2 Liver Function 11/28/24 Range/Units 17:10 Total Bilirubin 1.0 (0.1-1.5) mg/dL Direct Bilirubin 0.4 (0.0-0.5) mg/dL AST 36 H (12-35) U/L ALT 56 H (4-50) U/L Alkaline Phosphatase 76 (40-150) U/L Albumin 4.5 (3.3-5.0) g/dL Urine 11/28/24 11/28/24 11/28/24 Range/Units 18:23 18:23 18:23 Urine Color Cancelled Brown A Urine Appearance Cancelled Cloudy A Urine pH Cancelled Ur Specific [place] Urine Protein Urine Glucose (UA) 11/28/24 11/28/24 11/28/24 Range/Units 18:23 18:23 18:23 Urine Color Urine Appearance Urine pH 6.0 Ur Specific [place] Cancelled >= 1.030 Urine Protein Cancelled 2+ A Urine Glucose (UA) Cancelled 11/28/24 Range/Units 18:23 Urine Color Urine Appearance Urine pH Ur Specific [place] Urine Protein Urine Glucose (UA) Negative
[2024-11-28] MEDS: FUROSEMIDE 10 MG/ML inj 40 MG IVP (20:14)
--- NOTE | 2024-11-28 21:15 | PC.NURSE ---
POC trop results given to Nkechi BUTLER on med/surg
[2024-11-28 21:17] LABS: Troponin, Point-of-Care* 0.07 ng/ml (0.01-0.04)
[2024-11-28] MEDS: dilTIAZem HCL 125 MG in 0.9 % SODIUM CHLORIDE 100 ml 100 ML IVPB (21:56)
[2024-11-28] MEDS: APIXABAN 5 MG TABLET PO (22:13)
[2024-11-29] VITALS (38 sets, daily range): BP systolic 89–134; BP diastolic 63–103; PULSE 79–144; RESP 16–20; TEMP 36.4–36.9; O2SAT 90–96
[2024-11-29 06:30] LABS: Hematocrit 35.9 % (37.0-53.0); Hemoglobin* 12.0 gm/dL (13.5-17.5); Immature Granulocytes Abs Auto 0.01 K/uL (0.00-0.30); Immature Granulocytes Pct Auto 0.2 %; Lymphocytes Absolute Auto 1.10 K/uL (0.90-2.90); Mean Corpuscular HGB Conc 33 gm/dL (32-36); Mean Corpuscular Hemoglobin 32 pg (26-34); Mean Corpuscular Volume 95 fL (80-100); RDW Coefficient of Variation % 13.1 % (11.5-15.5); Red Blood Count 3.79 m/uL (4.30-5.90); White Blood Count* 5.49 K/uL (4.50-11.00)
[2024-11-29 06:36] LABS: Chloride* 102 mmol/L (96-114)
[2024-11-29 06:37] LABS: Albumin* 3.8 g/dL (3.3-5.0); Potassium* 3.4 mmol/L (3.6-5.1); Sodium* 135 mmol/L (135-149)
[2024-11-29 06:39] LABS: Anion Gap 7 mEq/L (7-15); Blood Urea Nitrogen* 20 mg/dL (7-30); Carbon Dioxide* 26 mmol/L (20-32); Creatinine* 1.0 mg/dL (0.5-1.5); Est. Creatinine Clearance* 46.96; Estimated Glomerular Filt Rate 73 ml/min
[2024-11-29 06:40] LABS: Alanine Aminotransferase* 53 U/L (4-50); Alkaline Phosphatase* 75 U/L (40-150); Aspartate Amino Transferase* 34 U/L (12-35); Bilirubin Total* 0.6 mg/dL (0.1-1.5); Calcium* 8.9 mg/dL (8.4-10.6); Glucose* 112 mg/dL (60-115); Total Protein* 6.5 g/dL (6.0-8.3)
[2024-11-29 06:52] LABS: Slide Review Reflex No
--- NOTE | 2024-11-29 06:55 | PC.NURSE ---
Pt alert and oriented to self and place. Pt was on diltiazem drip throughout several attempts to titrate but pt heart rate increased, pt currently going at a rate of 15 ml/hr IVPB blood pressure tolerating well. Pt is up A1 with IV pole, walker and gait belt. Pt is voiding, and tolerating a regular diet.
[2024-11-29] MEDS: POTASSIUM CHLORIDE 10 MEQ CAPSULE ER 20 MEQ PO (07:37)
[2024-11-29] MEDS: METOPROLOL TARTRATE 50 MG TABLET PO ×4 (07:37→21:32)
[2024-11-29] MEDS: POTASSIUM BICARB 25 MEQ EFFERVESCENT TAB PO (07:37)
[2024-11-29] MEDS: APIXABAN 5 MG TABLET PO ×2 (09:30→21:33)
[2024-11-29] MEDS: SODIUM CHLORIDE 0.9 % (FLUSH) 10 ML SYRINGE 5 ML IVF ×3 (09:30→21:33)
[2024-11-29] MEDS: MAGNESIUM IV 2 GM/50 ML PIGGYBACK IVPB (10:13)
--- NOTE | 2024-11-29 10:31 | P.IMPN_ITS ---
Assessment and Plan Assessment and plan (1) Atrial fibrillation with RVR: Problem comment: - new problem 11/28/24 - minimal results with IV Diltiazem and Metoprolol; given persistent HR>150, will start diltiazem drip - initiate Eliquis for anticoagulation - 11/29 HR improving with oral metoprolol given this morning. Weaning off diltiazem drip. Will titrate up on oral metoprolol as needed for HR control and as BP will allow. If BP low and HR elevated, may need to initiate digoxin load instead of metoprolol. Continue Eliquis for anticoagulation. Discussed with family risk of stroke in setting of afib and the need to monitor for clots in urine since he has true hematuria. Status: Acute (2) Hematuria: Problem comment: - new problem as of 11/28/24, source unclear. uncertain how long this has been going on. Reassuring imaging, no pain - urine culture pending - Protein in urine and BLE edema concerning for possible nephrotic/nephritic cause - will need outpatient nephrology referral if that is within goals of care. - Bladder thickening on CT - will need outpatient urology referral/CT angio renal system if that is within goals of care - Monitor Hgb and for clots in urine while starting Eliquis Status: Acute (3) Heart failure: Problem comment: - appears clinically fluid overloaded with BLE edema, pleural effusions, elevated BNP - likely 2/2 a fib - will obtain TTE to evaluate EF and cardiac structure - 11/29 Satting well on RA. Lasix not given this morning due to hypotension. ECHO pending. Status: Acute (4) Elevated LFTs: Problem comment: - 11/28/24: mild elevation of AST/ALT, unknown baseline, normal bili/alk phos - ddx: congestive hepatopathy, NAFLD, cholecystitis - patient asymptomatic, will follow LFTs and obtain TTE Status: Acute (5) Hyponatremia: Problem comment: - mild, Na of 132 - presumably 2/2 CHF - will not fluid restrict at this time, initiating diuresis on 11/28 and will follow electrolytes - 11/29 resolved. Status: Acute (6) Calcified mesenteric mass: Problem comment: - per CT 11/29/23: 5.3 cm calcified lesion within the left central mesentery. Several small calcified lymph nodes within the leslye hepatis. These findings are nonspecific. Differential considerations include sequela of tuberculosis, an inflammatory process, or malignancy/metastatic disease, such as lymphoma. - noted to have a similar finding on CT in 2020, per that Radiology read: Impression: Densely calcified left posterior abdominal mass measuring in total 4.3 x 5.2 x 2.5 centimeters, consistent with multiple calcified lymph nodes, representing sequela of prior granulomatous infection or chronic mesenteritis. Other chronic calcified lymph nodes are present within the periportal and portal caval regions. These findings are not suspicious for malignancy or acute inflamm ation. - given stability, no acute workup needed; outpatient f/u with PCP if within goals of care (discussed with family on 11/28/24) Status: Acute Total Time Spent Total Time Spent: Today I spent 50 minutes seeing the patient, discussing with patient's family, reviewing [facility] and EPIC notes/diagnostics/labs, discussing the care plan with our care team that includes social work, PT/OT, pharmacy, RT, mcfp and documenting my impressions and plan in the medical record. Subjective Time Seen by Provider: 09:00 Date Seen: 11/29/24 Interval history: Doroteo has no complaints. He does not remember having hematuria and has no idea why he is here. His and two of his children are here with him today and they help give history. They tell me that he has a poor memory, some times more than others. Exam Narrative: Exam Narrative: General: No acute distress. Sitting in the bedside chair eating breakfast. Awake, alert, oriented to self. No pallor. No jaundice. Oropharynx: Clear. Mucous membranes moist. Cardiovascular: Irregularly irregular. No murmurs, gallops, or rubs. Respiratory: Fine bibasilar crackles. Extremities: 2+ lower extremity pitting edema to knees bilaterally. Const: Vital Signs, click to edit/add: Vital Signs - 24 hr 11/28/24 16:54 11/28/24 17:20 11/28/24 17:21 Temperature 98.7 F Pulse Rate 149 H 143 H Pulse Rate [Apical ] Pulse Rate [Pulse Oximeter] 147 H Respiratory Rate 20 20 20 Blood Pressure 136/113 H Blood Pressure [Le ft Arm] Blood Pressure [Ri ght Upper Arm] 138/85 Pulse Oximetry 95 93 94 Oxygen Delivery Me thod Room Air 11/28/24 17:29 11/28/24 17:30 11/28/24 17:32 Temperature Pulse Rate 158 H 166 H 140 H Pulse Rate [Apical ] Pulse Rate [Pulse Oximeter] Respiratory Rate 22 21 21 Blood Pressure 129/103 H 122/90 H Blood Pressure [Le ft Arm] Blood Pressure [Ri ght Upper Arm] Pulse Oximetry 94 94 92 Oxygen Delivery Sd thod 11/28/24 17:33 11/28/24 17:45 11/28/24 17:47 Temperature Pulse Rate 155 H 152 H 129 H Pulse Rate [Apical ] Pulse Rate [Pulse Oximeter] Respiratory Rate 22 23 24 Blood Pressure 121/96 H Blood Pressure [Le ft Arm] Blood Pressure [Ri ght Upper Arm] Pulse Oximetry 92 91 92 [facility] 11/28/[facility] 18:00 11/28/24 18:02 11/28/24 18:03 Temperature Pulse Rate 160 H 123 H 132 H Pulse Rate [Apical ] Pulse Rate [Pulse Oximeter] Respiratory Rate 22 24 16 Blood Pressure 132/118 H Blood Pressure [Le ft Arm] Blood Pressure [Ri ght Upper Arm] Pulse Oximetry 93 93 92 [facility] 11/28/24 18:15 11/28/24 18:18 11/28/24 18:30 Temperature Pulse Rate 137 H 146 H Pulse Rate [Apical ] Pulse Rate [Pulse Oximeter] Respiratory Rate 21 20 19 Blood Pressure 118/107 H Blood Pressure [Le ft Arm] Blood Pressure [Ri ght Upper Arm] Pulse Oximetry 94 96 [facility] 11/28/24 18:33 11/28/24 18:34 11/28/24 18:45 Temperature Pulse Rate 137 H 136 H 159 H Pulse Rate [Apical ] Pulse Rate [Pulse Oximeter] Respiratory Rate 30 H 24 23 Blood Pressure 126/106 H Blood Pressure [Le ft Arm] Blood Pressure [Ri ght Upper Arm] Pulse Oximetry 95 95 95 [facility] 11/28/24 18:47 11/28/24 18:48 11/28/24 19:15 Temperature Pulse Rate 133 H 148 H Pulse Rate [Apical ] Pulse Rate [Pulse Oximeter] Respiratory Rate 22 17 Blood Pressure 122/91 H Blood Pressure [Le ft Arm] Blood Pressure [Ri ght Upper Arm] Pulse Oximetry 93 94 [facility] 11/28/24 19:17 11/28/24 19:30 11/28/24 19:32 Temperature Pulse Rate 137 H 157 H 145 H Pulse Rate [Apical ] Pulse Rate [Pulse Oximeter] Respiratory Rate 22 22 18 Blood Pressure 138/99 H 153/114 H Blood Pressure [Le ft Arm] Blood Pressure [Ri ght Upper Arm] Pulse Oximetry 92 94 94 [facility] 11/28/24 19:45 11/28/24 19:47 11/28/24 19:48 Temperature Pulse Rate 148 H 169 H Pulse Rate [Apical ] Pulse Rate [Pulse Oximeter] Respiratory Rate 21 20 16 Blood Pressure 163/128 H Blood Pressure [Le ft Arm] Blood Pressure [Ri ght Upper Arm] Pulse Oximetry 96 95 [facility] 11/28/24 20:00 11/28/24 20:01 11/28/24 20:17 Temperature Pulse Rate 157 H Pulse Rate [Apical ] Pulse Rate [Pulse Oximeter] Respiratory Rate 15 20 Blood Pressure 147/108 H 134/105 H Blood Pressure [Le ft Arm] Blood Pressure [Ri ght Upper Arm] Pulse Oximetry 92 [facility] 11/28/24 20:18 11/28/24 20:36 11/28/24 21:50 Temperature 97.8 F 98.1 F Pulse Rate 138 H Pulse Rate [Apical ] Pulse Rate [Pulse Oximeter] 124 H 155 H Respiratory Rate 24 20 18 Blood Pressure Blood Pressure [Le ft Arm] 139/105 H 135/111 H Blood Pressure [Ri ght Upper Arm] Pulse Oximetry 94 96 96 Oxygen Delivery [facility] Room Air Room Air 11/28/24 21:52 11/28/24 22:05 11/28/24 22:10 Temperature Pulse Rate Pulse Rate [Apical ] Pulse Rate [Pulse Oximeter] 156 H 138 H 145 H Respiratory Rate 18 18 18 Blood Pressure Blood Pressure [Le ft Arm] 130/97 H 158/47 H 170/118 H Blood Pressure [Ri ght Upper Arm] Pulse Oximetry 96 97 95 [facility] Room Air Room Air Room Air 11/28/24 22:11 11/28/24 22:18 11/28/24 22:28 Temperature Pulse Rate 160 H Pulse Rate [Apical ] Pulse Rate [Pulse Oximeter] 142 H 149 H Respiratory Rate 20 20 Blood Pressure Blood Pressure [Le ft Arm] 128/97 H 125/109 H Blood Pressure [Ri ght Upper Arm] Pulse Oximetry 95 95 Oxygen Delivery Me thod Room Air Room Air 11/28/24 22:30 11/28/24 22:35 11/28/24 22:49 Temperature Pulse Rate Pulse Rate [Apical ] Pulse Rate [Pulse Oximeter] 148 H 134 H 140 H Respiratory Rate 20 18 20 Blood Pressure Blood Pressure [Le ft Arm] 118/108 H 116/89 122/96 H Blood Pressure [Ri ght Upper Arm] Pulse Oximetry 94 91 91 Oxygen Delivery Me thod Room Air 11/28/24 22:50 11/28/24 22:54 11/28/24 22:56 Temperature Pulse Rate Pulse Rate [Apical ] Pulse Rate [Pulse Oximeter] 140 H 146 H 140 H Respiratory Rate 18 18 18 Blood Pressure Blood Pressure [Le ft Arm] 123/97 H 125/98 H 113/77 Blood Pressure [Ri ght Upper Arm] Pulse Oximetry 95 91 91 Oxygen Delivery Me thod Room Air Room Air Room Air 11/28/24 23:00 11/28/24 23:00 11/28/24 23:14 Temperature Pulse Rate Pulse Rate [Apical ] Pulse Rate [Pulse Oximeter] 136 H 138 H Respiratory Rate 18 18 Blood Pressure Blood Pressure [Le ft Arm] 111/86 Blood Pressure [Ri ght Upper Arm] Pulse Oximetry 94 92 Oxygen Delivery Me thod Room Air Room Air 11/28/24 23:20 11/28/24 23:25 11/28/24 23:30 Temperature Pulse Rate Pulse Rate [Apical ] Pulse Rate [Pulse Oximeter] 141 H 137 H 125 H Respiratory Rate 18 20 18 Blood Pressure Blood Pressure [Le ft Arm] 101/84 105/74 112/80 Blood Pressure [Ri ght Upper Arm] Pulse Oximetry 97 91 92 Oxygen Delivery Me thod Room Air Room Air Room Air 11/28/24 23:52 11/29/24 00:00 11/29/24 00:22 Temperature 98.1 F Pulse Rate Pulse Rate [Apical ] Pulse Rate [Pulse Oximeter] 134 H 136 H 126 H Respiratory Rate 18 20 18 Blood Pressure Blood Pressure [Le ft Arm] 104/68 123/90 H 114/73 Blood Pressure [Ri ght Upper Arm] Pulse Oximetry 90 92 94 Oxygen Delivery Me thod Room Air Room Air 11/29/24 01:14 11/29/24 01:30 11/29/24 01:45 Temperature Pulse Rate Pulse Rate [Apical ] Pulse Rate [Pulse Oximeter] 117 H 129 H 116 H Respiratory Rate 18 16 16 Blood Pressure Blood Pressure [Le ft Arm] 113/79 124/103 H 103/83 Blood Pressure [Ri ght Upper Arm] Pulse Oximetry 91 94 93 Oxygen Delivery Sd thod Room Air Room Air Room Air 11/29/24 02:00 11/29/24 02:25 11/29/24 02:35 Temperature Pulse Rate Pulse Rate [Apical ] Pulse Rate [Pulse Oximeter] 115 H 124 H 137 H Respiratory Rate 18 18 Blood Pressure Blood Pressure [Le ft Arm] 97/70 109/93 H 119/88 Blood Pressure [Ri ght Upper Arm] Pulse Oximetry 90 90 90 [facility] Room [facility] Room Air 11/29/24 03:15 11/29/24 03:15 11/29/24 03:17 Temperature Pulse Rate 126 H Pulse Rate [Apical ] Pulse Rate [Pulse Oximeter] 114 H 114 H Respiratory Rate 18 18 Blood Pressure Blood Pressure [Le ft Arm] 119/90 H Blood Pressure [Ri ght Upper Arm] Pulse Oximetry 90 Oxygen Delivery Sd thod Room Air 11/29/24 04:00 11/29/24 04:15 11/29/24 04:45 Temperature Pulse Rate Pulse Rate [Apical ] Pulse Rate [Pulse Oximeter] 111 H 118 H 126 H Respiratory Rate 18 16 16 Blood Pressure Blood Pressure [Le ft Arm] 115/83 116/71 126/94 H Blood Pressure [Ri ght Upper Arm] Pulse Oximetry 90 90 92 [facility] Room Air Room Air 11/29/24 04:50 11/29/24 05:15 11/29/24 05:30 Temperature Pulse Rate Pulse Rate [Apical ] Pulse Rate [Pulse Oximeter] 120 H 120 H 144 H Respiratory Rate 18 18 18 Blood Pressure Blood Pressure [Le ft Arm] 110/90 H 123/80 124/95 H Blood Pressure [Ri ght Upper Arm] Pulse Oximetry 90 90 90 Oxygen Delivery Sd thod Room Air Room Air Room Air 11/29/24 06:00 11/29/24 07:00 11/29/24 07:03 Temperature Pulse Rate 113 H Pulse Rate [Apical ] Pulse Rate [Pulse Oximeter] 118 H 114 H Respiratory Rate 18 20 Blood Pressure Blood Pressure [Le ft Arm] 124/95 H 124/98 H Blood Pressure [Ri ght Upper Arm] Pulse Oximetry 92 91 Oxygen Delivery Me thod Room Air Room Air 11/29/24 07:54 11/29/24 08:18 11/29/24 08:42 Temperature 98.2 F Pulse Rate 136 H Pulse Rate [Apical ] Pulse Rate [Pulse Oximeter] 118 H 94 Respiratory Rate 16 Blood Pressure Blood Pressure [Le ft Arm] 90/66 94/70 Blood Pressure [Ri ght Upper Arm] Pulse Oximetry 93 Oxygen Delivery Me thod Room Air 11/29/24 09:02 11/29/24 09:31 11/29/24 10:11 Temperature Pulse Rate Pulse Rate [Apical ] 92 Pulse Rate [Pulse Oximeter] 87 79 Respiratory Rate Blood Pressure Blood Pressure [Le ft Arm] 89/63 L 96/67 95/73 Blood Pressure [Ri ght Upper Arm] Pulse Oximetry Oxygen Delivery Me thod Labs Labs: Laboratory Results - last 24 hr 11/28/24 11/28/24 11/28/24 17:05 17:10 17:17 WBC 8.85 RBC 4.39 Hgb 13.9 Hct 41.6 MCV 95 MCH 32 MCHC 33 RDW Coeff of Kuldeep 13.1 Plt Count 145 Neut % (Auto) 65.5 Lymph % (Auto) 20.9 [place] % (Auto) 11.6 H Eos % (Auto) 1.1 Baso % (Auto) 0.7 Neut # (Auto) 5.79 Lymph # (Auto) 1.85 [place] # (Auto) 1.00 H Eos # (Auto) 0.10 Baso # (Auto) 0.06 Abs Immat Gran (auto) 0.02 Imm/Tot Granulo (auto) 0.2 INR 1.12 H D-Dimer Quant (PE/DVT) 6.17 H Sodium 132 L Potassium 4.1 Chloride 100 Carbon Dioxide 22 Anion Gap 10 BUN 23 Creatinine 1.2 Estimated Creat Clear 39.14 Estimated GFR 59 Glucose 125 H Lactate 1.5 Calcium 9.2 Magnesium 2.0 Total Bilirubin 1.0 Direct Bilirubin 0.4 AST 36 H ALT 56 H Alkaline Phosphatase 76 Troponin I 0.03 C-Reactive Protein 1.0 NT-Pro-B Natriuret Pep 4590 H Total Protein 7.7 Albumin 4.5 TSH 1.490 Urine Color Urine Appearance Urine pH Ur Specific [place] Urine Protein Urine Glucose (UA) Urine Ketones Urine Blood Urine Nitrite Urine Bilirubin Urine Urobilinogen Ur Leukocyte Esterase Urine RBC Urine WBC Urine WBC Clumps Ur Squamous Epith Cells [place] Biurate Crystals Calcium Carbonate Cryst Calcium Phosphate Cryst Calcium Oxalate Crystal Cystine Crystals Uric Acid Crystals Triple Phos Crystals Sulfur Crystals Cholesterol Crystals Tyrosine Crystals Hippuric Acid Crystals Amorphous Sediment Other Sediment Urine Bacteria Fatty Casts Hyaline Casts Fine Granular Casts Coarse Granular Casts Waxy Casts RBC Casts WBC Casts Other Casts Urine Starch Urine Mucus Urine Trichomonas Urine Yeast Lab Acknowledgement POC Troponin I 11/28/24 11/28/24 11/28/24 17:18 18:23 18:23 WBC RBC Hgb Hct MCV MCH MCHC RDW Coeff of [place] Plt Count Neut % (Auto) Lymph % (Auto) [place] % (Auto) Eos % (Auto) Baso % (Auto) Neut # (Auto) Lymph # (Auto) [place] # (Auto) Eos # (Auto) Baso # (Auto) Abs Immat Gran (auto) Imm/Tot Granulo (auto) INR D-Dimer Quant (PE/DVT) Sodium Potassium Chloride Carbon Dioxide Anion Gap BUN Creatinine Estimated Creat Clear Estimated GFR Glucose Lactate Calcium Magnesium Total Bilirubin Direct Bilirubin AST ALT Alkaline Phosphatase Troponin I C-Reactive Protein NT-Pro-B Natriuret Pep Total Protein Albumin TSH Urine Color Cancelled Brown A Urine Appearance Cancelled Urine pH Ur Specific [place] Urine Protein Urine Glucose (UA) Urine Ketones Urine Blood Urine Nitrite Urine Bilirubin Urine Urobilinogen Ur Leukocyte Esterase Urine RBC Urine WBC Urine WBC Clumps Ur Squamous Epith Cells [place] Biurate Crystals Calcium Carbonate Cryst Calcium Phosphate Cryst Calcium Oxalate Crystal Cystine Crystals Uric Acid Crystals Triple Phos Crystals Sulfur Crystals Cholesterol Crystals Tyrosine Crystals Hippuric Acid Crystals Amorphous Sediment Other Sediment Urine Bacteria Fatty Casts Hyaline Casts Fine Granular Casts Coarse Granular Casts Waxy Casts RBC Casts WBC Casts Other Casts Urine Starch Urine Mucus Urine Trichomonas Urine Yeast Lab Acknowledgement POC Troponin I 0.06 H 11/28/24 11/28/24 11/28/24 18:23 18:23 18:23 WBC RBC Hgb Hct MCV MCH MCHC RDW Coeff of [place] Plt Count Neut % (Auto) Lymph % (Auto) [place] % (Auto) Eos % (Auto) Baso % (Auto) Neut # (Auto) Lymph # (Auto) [place] # (Auto) Eos # (Auto) Baso # (Auto) Abs Immat Gran (auto) Imm/Tot Granulo (auto) INR D-Dimer Quant (PE/DVT) Sodium Potassium Chloride Carbon Dioxide Anion Gap BUN Creatinine Estimated Creat Clear Estimated GFR Glucose Lactate Calcium Magnesium Total Bilirubin Direct Bilirubin AST ALT Alkaline Phosphatase Troponin I C-Reactive Protein NT-Pro-B Natriuret Pep Total Protein Albumin TSH Urine Color Urine Appearance Cloudy A Urine pH Cancelled 6.0 Ur Specific [place] Cancelled >= 1.030 Urine Protein Cancelled Urine Glucose (UA) Urine Ketones Urine Blood Urine Nitrite Urine Bilirubin Urine Urobilinogen Ur Leukocyte Esterase Urine RBC Urine WBC Urine WBC Clumps Ur Squamous Epith Cells [place] Biurate Crystals Calcium Carbonate Cryst Calcium Phosphate Cryst Calcium Oxalate Crystal Cystine Crystals Uric Acid Crystals Triple Phos Crystals Sulfur Crystals Cholesterol Crystals Tyrosine Crystals Hippuric Acid Crystals Amorphous Sediment Other Sediment Urine Bacteria Fatty Casts Hyaline Casts Fine Granular Casts Coarse Granular Casts Waxy Casts RBC Casts WBC Casts Other Casts Urine Starch Urine Mucus Urine Trichomonas Urine Yeast Lab Acknowledgement POC Troponin I 11/28/24 11/28/24 11/28/24 18:23 18:23 18:23 WBC RBC Hgb Hct MCV MCH MCHC RDW Coeff of [place] Plt Count Neut % (Auto) Lymph % (Auto) [place] % (Auto) Eos % (Auto) Baso % (Auto) Neut # (Auto) Lymph # (Auto) [place] # (Auto) Eos # (Auto) Baso # (Auto) Abs Immat Gran (auto) Imm/Tot Granulo (auto) INR D-Dimer Quant (PE/DVT) Sodium Potassium Chloride Carbon Dioxide Anion Gap BUN Creatinine Estimated Creat Clear Estimated GFR Glucose Lactate Calcium Magnesium Total Bilirubin Direct Bilirubin AST ALT Alkaline Phosphatase Troponin I C-Reactive Protein NT-Pro-B Natriuret Pep Total Protein Albumin TSH Urine Color Urine Appearance Urine pH Ur Specific [place] Urine Protein 2+ A Urine Glucose (UA) Cancelled Negative Urine Ketones Cancelled 1+ A Urine Blood Cancelled Urine Nitrite Urine Bilirubin Urine Urobilinogen Ur Leukocyte Esterase Urine RBC Urine WBC Urine WBC Clumps Ur Squamous Epith Cells [place] Biurate Crystals Calcium Carbonate Cryst Calcium Phosphate Cryst Calcium Oxalate Crystal Cystine Crystals Uric Acid Crystals Triple Phos Crystals Sulfur Crystals Cholesterol Crystals Tyrosine Crystals Hippuric Acid Crystals Amorphous Sediment Other Sediment Urine Bacteria Fatty Casts Hyaline Casts Fine Granular Casts Coarse Granular Casts Waxy Casts RBC Casts WBC Casts Other Casts Urine Starch Urine Mucus Urine Trichomonas Urine Yeast Lab Acknowledgement POC Troponin I 11/28/24 11/28/24 11/28/24 18:23 18:23 18:23 WBC RBC Hgb Hct MCV MCH MCHC RDW Coeff of [place] Plt Count Neut % (Auto) Lymph % (Auto) [place] % (Auto) Eos % (Auto) Baso % (Auto) Neut # (Auto) Lymph # (Auto) [place] # (Auto) Eos # (Auto) Baso # (Auto) Abs Immat Gran (auto) Imm/Tot Granulo (auto) INR D-Dimer Quant (PE/DVT) Sodium Potassium Chloride Carbon Dioxide Anion Gap BUN Creatinine Estimated Creat Clear Estimated GFR Glucose Lactate Calcium Magnesium Total Bilirubin Direct Bilirubin AST ALT Alkaline Phosphatase Troponin I C-Reactive Protein NT-Pro-B Natriuret Pep Total Protein Albumin TSH Urine Color Urine Appearance Urine pH Ur Specific [place] Urine Protein Urine Glucose (UA) Urine Ketones Urine Blood 3+ A Urine Nitrite Cancelled Negative Urine Bilirubin Cancelled 1+ A Urine Urobilinogen Cancelled Ur Leukocyte Esterase Urine RBC Urine WBC Urine WBC Clumps Ur Squamous Epith Cells [place] Biurate Crystals Calcium Carbonate Cryst Calcium Phosphate Cryst Calcium Oxalate Crystal Cystine Crystals Uric Acid Crystals Triple Phos Crystals Sulfur Crystals Cholesterol Crystals Tyrosine Crystals Hippuric Acid Crystals Amorphous Sediment Other Sediment Urine Bacteria Fatty Casts Hyaline Casts Fine Granular Casts Coarse Granular Casts Waxy Casts RBC Casts WBC Casts Other Casts Urine Starch Urine Mucus Urine Trichomonas Urine Yeast Lab Acknowledgement POC Troponin I 11/28/24 11/28/24 11/28/24 18:23 18:23 18:23 WBC RBC Hgb Hct MCV MCH MCHC RDW Coeff of [place] Plt Count Neut % (Auto) Lymph % (Auto) [place] % (Auto) Eos % (Auto) Baso % (Auto) Neut # (Auto) Lymph # (Auto) [place] # (Auto) Eos # (Auto) Baso # (Auto) Abs Immat Gran (auto) Imm/Tot Granulo (auto) INR D-Dimer Quant (PE/DVT) Sodium Potassium Chloride Carbon Dioxide Anion Gap BUN Creatinine Estimated Creat Clear Estimated GFR Glucose Lactate Calcium Magnesium Total Bilirubin Direct Bilirubin AST ALT Alkaline Phosphatase Troponin I C-Reactive Protein NT-Pro-B Natriuret Pep Total Protein Albumin TSH Urine Color Urine Appearance Urine pH Ur Specific [place] Urine Protein Urine Glucose (UA) Urine Ketones Urine Blood Urine Nitrite Urine Bilirubin Urine Urobilinogen 0.2 Ur Leukocyte Esterase Cancelled Negative Urine RBC Cancelled >100 A Urine WBC Cancelled Urine WBC Clumps Ur Squamous Epith Cells [place] Biurate Crystals Calcium Carbonate Cryst Calcium Phosphate Cryst Calcium Oxalate Crystal Cystine Crystals Uric Acid Crystals Triple Phos Crystals Sulfur Crystals Cholesterol Crystals Tyrosine Crystals Hippuric Acid Crystals Amorphous Sediment Other Sediment Urine Bacteria Fatty Casts Hyaline Casts Fine Granular Casts Coarse Granular Casts Waxy Casts RBC Casts WBC Casts Other Casts Urine Starch Urine Mucus Urine Trichomonas Urine Yeast Lab Acknowledgement POC Troponin I 11/28/24 11/28/24 11/28/24 18:23 18:23 18:23 WBC RBC Hgb Hct MCV MCH MCHC RDW Coeff of [place] Plt Count Neut % (Auto) Lymph % (Auto) [place] % (Auto) Eos % (Auto) Baso % (Auto) Neut # (Auto) Lymph # (Auto) [place] # (Auto) Eos # (Auto) Baso # (Auto) Abs Immat Gran (auto) Imm/Tot Granulo (auto) INR D-Dimer Quant (PE/DVT) Sodium Potassium Chloride Carbon Dioxide Anion Gap BUN Creatinine Estimated Creat Clear Estimated GFR Glucose Lactate Calcium Magnesium Total Bilirubin Direct Bilirubin AST ALT Alkaline Phosphatase Troponin I C-Reactive Protein NT-Pro-B Natriuret Pep Total Protein Albumin TSH Urine Color Urine Appearance Urine pH Ur Specific [place] Urine Protein Urine Glucose (UA) Urine Ketones Urine Blood Urine Nitrite Urine Bilirubin Urine Urobilinogen Ur Leukocyte Esterase Urine RBC Urine WBC 0-2 Urine WBC Clumps Cancelled Ur Squamous Epith Cells Cancelled None [place] Biurate Crystals Cancelled Calcium Carbonate Cryst Cancelled Calcium Phosphate Cryst Cancelled Calcium Oxalate Crystal Cancelled Cystine Crystals Cancelled Uric Acid Crystals Cancelled Triple Phos Crystals Cancelled Sulfur Crystals Cancelled Cholesterol Crystals Cancelled Tyrosine Crystals Cancelled Hippuric Acid Crystals Cancelled Amorphous Sediment Cancelled Other Sediment Cancelled Urine Bacteria Cancelled None Fatty Casts Cancelled Hyaline Casts Cancelled Fine Granular Casts Cancelled Coarse Granular Casts Cancelled Waxy Casts Cancelled RBC Casts Cancelled WBC Casts Cancelled Other Casts Cancelled Urine Starch Cancelled Urine Mucus Cancelled Urine Trichomonas Cancelled Urine Yeast Cancelled Lab Acknowledgement POC Troponin I 11/28/24 11/28/24 11/29/24 19:28 20:28 06:10 WBC 5.49 RBC 3.79 L Hgb 12.0 L Hct 35.9 L MCV 95 MCH 32 MCHC 33 RDW Coeff of [place] 13.1 Plt Count 117 L Neut % (Auto) 62.7 Lymph % (Auto) 20.0 [place] % (Auto) 13.8 H Eos % (Auto) 2.4 Baso % (Auto) 0.9 Neut # (Auto) 3.44 Lymph # (Auto) 1.10 [place] # (Auto) 0.80 Eos # (Auto) 0.13 Baso # (Auto) 0.05 Abs Immat Gran (auto) 0.01 Imm/Tot Granulo (auto) 0.2 INR D-Dimer Quant (PE/DVT) Sodium 135 Potassium 3.4 L Chloride 102 Carbon Dioxide 26 Anion Gap 7 BUN 20 Creatinine 1.0 Estimated Creat Clear 46.96 Estimated GFR 73 Glucose 112 Lactate Calcium 8.9 Magnesium Total Bilirubin 0.6 Direct Bilirubin AST 34 ALT 53 H Alkaline Phosphatase 75 Troponin I 0.04 C-Reactive Protein NT-Pro-B Natriuret Pep Total Protein 6.5 Albumin 3.8 TSH Urine Color Urine Appearance Urine pH Ur Specific [place] Urine Protein Urine Glucose (UA) Urine Ketones Urine Blood Urine Nitrite Urine Bilirubin Urine Urobilinogen Ur Leukocyte Esterase Urine RBC Urine WBC Urine WBC Clumps Ur Squamous Epith Cells [place] Biurate Crystals Calcium Carbonate Cryst Calcium Phosphate Cryst Calcium Oxalate Crystal Cystine Crystals Uric Acid Crystals Triple Phos Crystals Sulfur Crystals Cholesterol Crystals Tyrosine Crystals Hippuric Acid Crystals Amorphous Sediment Other Sediment Urine Bacteria Fatty Casts Hyaline Casts Fine Granular Casts Coarse Granular Casts Waxy Casts RBC Casts WBC Casts Other Casts Urine Starch Urine Mucus Urine Trichomonas Urine Yeast Lab Acknowledgement Test Added POC Troponin I 0.07 H
--- NOTE | 2024-11-29 11:32 | NUTR.NU ---
Nutrition: MD consult for Heart Healthy Education. Patient admit with atrial fib. Height 5' 6, Weight 161.1 lbs, BMI 26.3. No chart weight history. Diet Regular. Intake 75% at breakfast. Patient was unable to tell me a usual weight or if he has lost weight. Patient did report eating 3 meals a day most days. Patient struggled with recall of usual intake at meals. Son reported his Mom is a good cook and does all of the cooking and meal preparation. [place] with his . Provided education information on a heart healthy diet. Son reported he will pass information along to his Mom/patient's . Contact information provided. Encouraged them to contact with any questions as needed.
[2024-11-29] MEDS: METOPROLOL TARTRATE 1 MG/ML inj 5 MG IVP (12:59)
[2024-11-29] MEDS: DIGOXIN 250 MCG TABLET 500 MCG PO (16:58)
--- NOTE | 2024-11-29 19:15 | W.PM.CROSSCO ---
Subjective Subjective Interval history: Patient's HR remains elevated (120s, up to 140s with activity) on Metoprolol. BP 100s/70-80s, asymptomatic. Unlikely to tolerate higher doses of Metoprolol with current BP, so added Digoxin to regimen. TTE obtained 11/29: Final Impressions: 1. LVEF 50-55% with significant lgrq-xd-uwae variability. Moderate concentric LVH. 2. The rhythm was afib with RVR during the study [V-rate 110s-130s bpm]. 3. Moderate concentric left ventricular hypertrophy. 4. Cwmz-ct-orujtngh MR. 5. Ggvk-ue-ynzkmlhq TR. 6. Mild LAE. 7. Dilated IVC with abnormal respiratory variability. Assessment and Plan Assessment and plan (1) Atrial fibrillation with RVR: Problem comment: - new problem 11/28/24 - minimal results with IV Diltiazem and Metoprolol; given persistent HR>150, will start diltiazem drip - initiate Eliquis for anticoagulation - 11/29 HR improving with oral metoprolol given this morning. Weaning off diltiazem drip. Will titrate up on oral metoprolol as needed for HR control and as BP will allow. If BP low and HR elevated, may need to initiate digoxin load instead of metoprolol. Continue Eliquis for anticoagulation. Discussed with family risk of stroke in setting of afib and the need to monitor for clots in urine since he has true hematuria. Status: Acute (2) Heart failure: Problem comment: - appears clinically fluid overloaded with BLE edema, pleural effusions, elevated BNP - likely 2/2 a fib - 11/29: Satting well on RA. Lasix not given this morning due to hypotension. - TTE 11/29: Final Impressions: 1. LVEF 50-55% with significant czgx-lw-rknu variability. Moderate concentric LVH. 2. The rhythm was afib with RVR during the study [V-rate 110s-130s bpm]. 3. Moderate concentric left ventricular hypertrophy. 4. Apib-jq-zyteyagp MR. 5. Cwup-re-rupjtigg TR. 6. Mild LAE. 7. Dilated IVC with abnormal respiratory variability. Status: Acute
[2024-11-29] MEDS: DIGOXIN 250 MCG TABLET PO (22:42)
[2024-11-30] VITALS (15 sets, daily range): BP systolic 100–134; BP diastolic 51–108; PULSE 88–141; RESP 14–22; TEMP 36.6–37.1; O2SAT 91–94
[2024-11-30] MEDS: DIGOXIN 250 MCG TABLET PO ×2 (04:32→08:28)
--- NOTE | 2024-11-30 06:29 | PC.NURSE ---
end of shift: Pt is AOX4, forgetful. Pt family bedside and active in his care per request and pt preference. Pt. refused non slip socks. Pt refused morning lab draw. Pt impulsive. Bed alarm on. reviewed ECHO results w/ family at start of shift. Pt. denies pain. Pt is on tele w/ A.fib w/ RVR.
[2024-11-30 06:45] LABS: Hematocrit 38.3 % (37.0-53.0); Hemoglobin* 12.8 gm/dL (13.5-17.5); Immature Granulocytes Abs Auto 0.01 K/uL (0.00-0.30); Immature Granulocytes Pct Auto 0.1 %; Lymphocytes Absolute Auto 1.45 K/uL (0.90-2.90); Mean Corpuscular HGB Conc 33 gm/dL (32-36); Mean Corpuscular Hemoglobin 32 pg (26-34); Mean Corpuscular Volume 95 fL (80-100); RDW Coefficient of Variation % 13.3 % (11.5-15.5); Red Blood Count 4.03 m/uL (4.30-5.90); White Blood Count* 7.06 K/uL (4.50-11.00)
[2024-11-30 07:01] LABS: Slide Review Reflex No
[2024-11-30 07:22] LABS: Albumin* 3.6 g/dL (3.3-5.0); Chloride* 104 mmol/L (96-114); Potassium* 4.1 mmol/L (3.6-5.1); Sodium* 135 mmol/L (135-149)
[2024-11-30 07:25] LABS: Alanine Aminotransferase* 49 U/L (4-50); Alkaline Phosphatase* 61 U/L (40-150); Anion Gap 6 mEq/L (7-15); Aspartate Amino Transferase* 30 U/L (12-35); Bilirubin Total* 1.0 mg/dL (0.1-1.5); Blood Urea Nitrogen* 18 mg/dL (7-30); Calcium* 8.6 mg/dL (8.4-10.6); Carbon Dioxide* 25 mmol/L (20-32); Creatinine* 1.0 mg/dL (0.5-1.5); Est. Creatinine Clearance* 46.96; Estimated Glomerular Filt Rate 73 ml/min; Glucose* 115 mg/dL (60-115); Total Protein* 6.4 g/dL (6.0-8.3)
[2024-11-30] MEDS: POTASSIUM CHLORIDE 10 MEQ CAPSULE ER 20 MEQ PO (08:27)
[2024-11-30] MEDS: METOPROLOL TARTRATE 100 MG TABLET PO ×2 (08:27→20:09)
[2024-11-30] MEDS: APIXABAN 5 MG TABLET PO ×2 (08:28→20:09)
[2024-11-30] MEDS: FUROSEMIDE 10 MG/ML inj 40 MG IVP (08:29)
[2024-11-30] MEDS: SODIUM CHLORIDE 0.9 % (FLUSH) 10 ML SYRINGE 5 ML IVF ×3 (08:29→20:09)
[2024-11-30] MEDS: dilTIAZem 5 MG/ML inj 10 MG IVP (10:20)
--- NOTE | 2024-11-30 17:45 | PM.IMPN1 ---
Assessment and Plan Assessment and plan (1) Atrial fibrillation with RVR: Problem comment: - new problem 11/28/24 - minimal results with IV Diltiazem and Metoprolol; given persistent HR>150, will start diltiazem drip - initiate Eliquis for anticoagulation - 11/29 HR improving with oral metoprolol given this morning. Weaning off diltiazem drip. Will titrate up on oral metoprolol as needed for HR control and as BP will allow. If BP low and HR elevated, may need to initiate digoxin load instead of metoprolol. Continue Eliquis for anticoagulation. Discussed with family risk of stroke in setting of afib and the need to monitor for clots in urine since he has true hematuria. - 11/30 HR tachy overnight. He is now on digoxin and metoprolol. He was given a digoxin load without effect. I will therefore stop digoxin. Not hypotensive today. Will trial diltiazem push and then oral diltiazem if he tolerates this. Continue Eliquis. Status: Acute (2) Hematuria: Problem comment: - new problem as of 11/28/24, source unclear. uncertain how long this has been going on. Reassuring imaging, no pain - urine culture pending - Protein in urine and BLE edema concerning for possible nephrotic/nephritic cause - will need outpatient nephrology referral if that is within goals of care. - Bladder thickening on CT - will need outpatient urology referral/CT angio renal system if that is within goals of care - Monitor Hgb and for clots in urine while starting Eliquis - 11/30 this has resolved. I informed his family that he will still need outpatient nephrology and urology if that is within goals of care Status: Acute (3) Heart failure: Problem comment: - appears clinically fluid overloaded with BLE edema, pleural effusions, elevated BNP - likely 2/2 a fib - 11/29: Satting well on RA. Lasix not given this morning due to hypotension. - 11/30 still satting well. Continue daily Lasix diuresis, creatinine stable, continue to monitor. - TTE 11/29: Final Impressions: 1. LVEF 50-55% with significant rljp-ju-hzdf variability. Moderate concentric LVH. 2. The rhythm was afib with RVR during the study [V-rate 110s-130s bpm]. 3. Moderate concentric left ventricular hypertrophy. 4. Nrih-xj-ytmvhwbk MR. 5. Sdta-vh-vhpfeefa TR. 6. Mild LAE. 7. Dilated IVC with abnormal respiratory variability. Status: Acute (4) Elevated LFTs: Problem comment: - 11/28/24: mild elevation of AST/ALT, unknown baseline, normal bili/alk phos - ddx: congestive hepatopathy, NAFLD, cholecystitis - patient asymptomatic, will follow LFTs and obtain TTE Status: Acute (5) Hyponatremia: Problem comment: - mild, Na of 132 - presumably 2/2 CHF - will not fluid restrict at this time, initiating diuresis on 11/28 and will follow electrolytes - 11/29 resolved. Status: Acute (6) Calcified mesenteric mass: Problem comment: - per CT 11/29/23: 5.3 cm calcified lesion within the left central mesentery. Several small calcified lymph nodes within the leslye hepatis. These findings are nonspecific. Differential considerations include sequela of tuberculosis, an inflammatory process, or malignancy/metastatic disease, such as lymphoma. - noted to have a similar finding on CT in 2019, per that Radiology read: Impression: Densely calcified left posterior abdominal mass measuring in total 4.3 x 5.2 x 2.5 centimeters, consistent with multiple calcified lymph nodes, representing sequela of prior granulomatous infection or chronic mesenteritis. Other chronic calcified lymph nodes are present within the periportal and portal caval regions. These findings are not suspicious for malignancy or acute inflammation. - given stability, no acute workup needed; outpatient f/u with PCP if within goals of care (discussed with family on 11/28/24) Status: Acute Total Time Spent Total Time Spent: Today I spent 50 minutes seeing the patient, discussing with patient's family, managing heart rate control, reviewing Expanse and EPIC notes/diagnostics/labs, discussing the care plan with our care team that includes social work, PT/OT, pharmacy, RT, long-term and documenting my impressions and plan in the medical record. Subjective Time Seen by Provider: 11:42 Date Seen: 11/30/24 Interval history: Doroteo wants to go home. His family is here with him and help to reorient and reassure him. He denies CP or SOB. Gross hematuria is no longer present. Exam Narrative: Exam Narrative: General: No acute distress. Sitting in the bedside chair. Awake, alert, oriented to self. No pallor. No jaundice. Oropharynx: Clear. Mucous membranes moist. Cardiovascular: Irregularly irregular, tachycardic. No murmurs, gallops, or rubs. Respiratory: Clear to auscultation bilaterally, no wheezes or crackles. Extremities: 1+ lower extremity pitting edema to knees bilaterally. Const: Vital Signs, click to edit/add: Vital Signs - 24 hr 11/29/24 19:00 11/29/24 19:46 11/29/24 21:28 Temperature 98.2 F Pulse Rate Pulse Rate [Apical ] 138 H 129 H Pulse Rate [Pulse Oximeter] 130 H Respiratory Rate 16 20 Blood Pressure [Le ft Arm] 101/87 Blood Pressure [Ri ght Arm] 113/92 H 120/95 H Pulse Oximetry 92 [facility] 11/29/24 22:39 11/29/24 22:42 11/29/24 23:00 Temperature Pulse Rate 133 H 131 H Pulse Rate [Apical ] 129 H Pulse Rate [Pulse Oximeter] 130 H Respiratory Rate 20 Blood Pressure [Le ft Arm] Blood Pressure [Ri ght Arm] Pulse Oximetry Oxygen Delivery Dc thod 11/29/24 23:00 11/30/24 03:00 11/30/24 04:32 Temperature 98.1 F 97.9 F Pulse Rate 141 H Pulse Rate [Apical ] Pulse Rate [Pulse Oximeter] 129 H 128 H Respiratory Rate 14 Blood Pressure [Le ft Arm] 124/97 H Blood Pressure [Ri ght Arm] 117/98 H Pulse Oximetry 91 [facility] 11/30/24 07:00 11/30/24 07:00 11/30/24 07:00 Temperature 98 F Pulse Rate 129 H Pulse Rate [Apical ] 124 H 124 H Pulse Rate [Pulse Oximeter] Respiratory Rate 22 22 Blood Pressure [Le ft Arm] 124/81 Blood Pressure [Ri ght Arm] Pulse Oximetry 92 [facility] 11/30/24 08:28 11/30/24 10:30 11/30/24 11:00 Temperature 98.0 F Pulse Rate 124 H Pulse Rate [Apical ] 103 H 94 Pulse Rate [Pulse Oximeter] Respiratory Rate 20 Blood Pressure [Le ft Arm] 100/51 L 109/83 Blood Pressure [Ri ght Arm] Pulse Oximetry 91 Oxygen Delivery Me thod Room Air 11/30/24 12:05 11/30/24 12:43 11/30/24 13:31 Temperature Pulse Rate Pulse Rate [Apical ] 103 H Pulse Rate [Pulse Oximeter] 94 Respiratory Rate Blood Pressure [Le ft Arm] 105/80 117/86 119/86 Blood Pressure [Ri ght Arm] Pulse Oximetry Oxygen Delivery Me thod Room Air 11/30/24 15:00 11/30/24 15:00 11/30/24 15:00 Temperature 98.5 F Pulse Rate 100 Pulse Rate [Apical ] 89 89 Pulse Rate [Pulse Oximeter] Respiratory Rate 20 18 Blood Pressure [Le ft Arm] 123/95 H Blood Pressure [Ri ght Arm] Pulse Oximetry 92 Oxygen Delivery Me thod Room Air 11/30/24 17:42 Temperature Pulse Rate Pulse Rate [Apical ] 92 Pulse Rate [Pulse Oximeter] Respiratory Rate Blood Pressure [Le ft Arm] 115/77 Blood Pressure [Ri ght Arm] Pulse Oximetry Oxygen Delivery Me thod Labs Labs: Laboratory Results - last 24 hr 11/30/24 06:39 WBC 7.06 RBC 4.03 L Hgb 12.8 L Hct 38.3 MCV 95 MCH 32 MCHC 33 RDW Coeff of Kuldeep 13.3 Plt Count 126 L Neut % (Auto) 65.0 Lymph % (Auto) 20.5 Bailey % (Auto) 11.9 H Eos % (Auto) 1.8 Baso % (Auto) 0.7 Neut # (Auto) 4.58 Lymph # (Auto) 1.45 Bailey # (Auto) 0.80 Eos # (Auto) 0.13 Baso # (Auto) 0.05 Abs Immat Gran (auto) 0.01 Imm/Tot Granulo (auto) 0.1 Sodium 135 Potassium 4.1 Chloride 104 Carbon Dioxide 25 Anion Gap 6 L BUN 18 Creatinine 1.0 Estimated Creat Clear 46.96 Estimated GFR 73 Glucose 115 Calcium 8.6 Total Bilirubin 1.0 AST 30 ALT 49 Alkaline Phosphatase 61 Total Protein 6.4 Albumin 3.6
--- NOTE | 2024-11-30 18:34 | PC.NURSE ---
End of shift report [id number]: Pleasant and cooperative with cares. Alert and oriented to self and date only. Patient requires multiple reminders, cues and direction to complete tasks. Pulse sustained in 110's-120's upon arrival, patient received IV diltiazem and then switched to po. Patient pulse 80's-100 throughout the rest of the shift. BP checked frequently throughout the shift and tolerating medication and able to sustain BP. Ambulates with SBA with walker. Per MD, recommendation for little activity until rate better controlled. Patient tolerated well, utilized urinal for voiding. Family bedside. Patient family had assisted patient to bathroom at the start of the shift, reminder that staff needs to be assisting patient to and from the restroom at this time.
[2024-12-01] VITALS (8 sets, daily range): BP systolic 110–138; BP diastolic 69–95; PULSE 84–114; RESP 16–18; TEMP 36.4–36.8; O2SAT 91–97
--- NOTE | 2024-12-01 04:43 | PC.NURSE ---
Pt rested well this night with daughter in room. Family very helpful with cares. HR controlled mainly 88-104. Reporting zero pain. Pt up SBA with walker and voiding in BR. Afebrile. Pleasant and cooperative. VS unremarkable.
[2024-12-01 06:30] LABS: Hematocrit 40.0 % (37.0-53.0); Hemoglobin* 13.4 gm/dL (13.5-17.5); Immature Granulocytes Abs Auto 0.01 K/uL (0.00-0.30); Immature Granulocytes Pct Auto 0.2 %; Lymphocytes Absolute Auto 1.61 K/uL (0.90-2.90); Mean Corpuscular HGB Conc 34 gm/dL (32-36); Mean Corpuscular Hemoglobin 32 pg (26-34); Mean Corpuscular Volume 95 fL (80-100); RDW Coefficient of Variation % 13.4 % (11.5-15.5); Red Blood Count 4.23 m/uL (4.30-5.90); White Blood Count* 6.53 K/uL (4.50-11.00)
[2024-12-01 06:47] LABS: Chloride* 104 mmol/L (96-114); Potassium* 3.9 mmol/L (3.6-5.1); Sodium* 135 mmol/L (135-149)
[2024-12-01 06:50] LABS: Blood Urea Nitrogen* 19 mg/dL (7-30); Creatinine* 1.0 mg/dL (0.5-1.5); Est. Creatinine Clearance* 46.96; Estimated Glomerular Filt Rate 73 ml/min
[2024-12-01 06:51] LABS: Anion Gap 4 mEq/L (7-15); Calcium* 8.5 mg/dL (8.4-10.6); Carbon Dioxide* 27 mmol/L (20-32); Glucose* 109 mg/dL (60-115)
[2024-12-01 07:16] LABS: Slide Review Reflex No
[2024-12-01] MEDS: POTASSIUM CHLORIDE 10 MEQ CAPSULE ER 20 MEQ PO (08:03)
[2024-12-01] MEDS: FUROSEMIDE 10 MG/ML inj 40 MG IVP (08:04)
[2024-12-01] MEDS: APIXABAN 5 MG TABLET PO ×2 (08:04→20:45)
[2024-12-01] MEDS: METOPROLOL TARTRATE 100 MG TABLET PO ×2 (08:04→20:45)
[2024-12-01] MEDS: SODIUM CHLORIDE 0.9 % (FLUSH) 10 ML SYRINGE 5 ML IVF ×2 (08:04→20:46)
[2024-12-01] MEDS: dilTIAZem 180 MG CAP (CD) PO (09:54)
--- NOTE | 2024-12-01 11:54 | P.IMPN_ITS ---
Assessment and Plan Assessment and plan (1) Atrial fibrillation with RVR: Problem comment: - new problem 11/28/24 - minimal results with IV Diltiazem and Metoprolol; given persistent HR>150, will start diltiazem drip - initiate Eliquis for anticoagulation - 11/29 HR improving with oral metoprolol given this morning. Weaning off diltiazem drip. Will titrate up on oral metoprolol as needed for HR control and as BP will allow. If BP low and HR elevated, may need to initiate digoxin load instead of metoprolol. Continue Eliquis for anticoagulation. Discussed with family risk of stroke in setting of afib and the need to monitor for clots in urine since he has true hematuria. - 11/30 HR tachy overnight. He is now on digoxin and metoprolol. He was given a digoxin load without effect. I will therefore stop digoxin. Not hypotensive today. Will trial diltiazem push and then oral diltiazem if he tolerates this. Continue Eliquis. - 12/01 HR well controlled. Advance activity today, transition to Diltiazem CD, continue digoxin and metoprolol. Anticipate will be able to d/c home tomorrow if HR stays well controlled. Status: Acute (2) Hematuria: Problem comment: - new problem as of 11/28/24, source unclear. uncertain how long this has been going on. Reassuring imaging, no pain - urine culture pending - Protein in urine and BLE edema concerning for possible nephrotic/nephritic cause - will need outpatient nephrology referral if that is within goals of care. - Bladder thickening on CT - will need outpatient urology referral/CT angio renal system if that is within goals of care - Monitor Hgb and for clots in urine while starting Eliquis - 11/30 this has resolved. I informed his family that he will still need outpatient nephrology and urology if that is within goals of care Status: Acute (3) Heart failure: Problem comment: - appears clinically fluid overloaded with BLE edema, pleural effusions, elevated BNP - likely 2/2 a fib - 11/29: Satting well on RA. Lasix not given this morning due to hypotension. - 11/30 still satting well. Continue daily Lasix diuresis, creatinine stable, continue to monitor. - 12/01 acute HFpEF exacerbation, likely due to afib with RVR. Transition to oral lasix, starting tomorrow morning - TTE 11/29: Final Impressions: 1. LVEF 50-55% with significant poyr-um-mqee variability. Moderate concentric LVH. 2. The rhythm was afib with RVR during the study [V-rate 110s-130s bpm]. 3. Moderate concentric left ventricular hypertrophy. 4. Wbnk-up-deoqjzwq MR. 5. Qnpx-mr-xcijoveb TR. 6. Mild LAE. 7. Dilated IVC with abnormal respiratory variability. Status: Acute (4) Elevated LFTs: Problem comment: - 11/28/24: mild elevation of AST/ALT, unknown baseline, normal bili/alk phos - ddx: congestive hepatopathy, NAFLD, cholecystitis - patient asymptomatic, will follow LFTs and obtain TTE - 12/01 LFTs improved, ECHO as above. Suspect LFT elevation was from liver congestion/HF Status: Acute (5) Hyponatremia: Problem comment: - mild, Na of 132 - presumably 2/2 CHF - will not fluid restrict at this time, initiating diuresis on 11/28 and will follow electrolytes - 11/29 resolved. Status: Acute (6) Calcified mesenteric mass: Problem comment: - per CT 11/29/23: 5.3 cm calcified lesion within the left central mesentery. Several small calcified lymph nodes within the leslye hepatis. These findings are nonspecific. Differential considerations include sequela of tuberculosis, an inflammatory process, or malignancy/metastatic disease, such as lymphoma. - noted to have a similar finding on CT in 2019, per that Radiology read: Impression: Densely calcified left posterior abdominal mass measuring in total 4.3 x 5.2 x 2.5 centimeters, consistent with multiple calcified lymph nodes, representing sequela of prior granulomatous infection or chronic mesenteritis. Other chronic calcified lymph nodes are present within the periportal and portal caval regions. These findings are not suspicious for malignancy or acute inflammation. - given stability, no acute workup needed; outpatient f/u with PCP if within goals of care (discussed with family on 11/28/24) Status: Acute Total Time Spent Total Time Spent: Today I spent 35 minutes seeing the patient, discussing with patient's family, managing heart rate control, reviewing Expanse and EPIC notes/diagnostics/labs, discussing the care plan with our care team that includes social work, PT/OT, pharmacy, RT, senior care and documenting my impressions and plan in the medical record. Subjective Time Seen by Provider: 09:00 Date Seen: 12/01/24 Interval history: Doroteo feels fine. He has no complaints. His family tells me he's looking much better overall. His HR was well controlled overnight on cardiac monitoring per nursing staff. Exam Narrative: Exam Narrative: General: No acute distress. Sitting in the bedside chair. Awake, alert, oriented to self. No pallor. No jaundice. Oropharynx: Clear. Mucous membranes moist. Cardiovascular: Irregularly irregular. No murmurs, gallops, or rubs. Respiratory: Clear to auscultation bilaterally, no wheezes or crackles. Extremities: 1+ lower extremity pitting edema to knees bilaterally. Const: Vital Signs, click to edit/add: Vital Signs - 24 hr 11/30/24 12:05 11/30/24 12:43 11/30/24 13:31 Temperature Pulse Rate Pulse Rate [Apical ] 103 H Pulse Rate [Pulse Oximeter] 94 Respiratory Rate Blood Pressure [Le ft Arm] 105/80 117/86 119/86 Blood Pressure [Ri ght Arm] Pulse Oximetry Oxygen Delivery Me thod Room Air 11/30/24 15:00 11/30/24 15:00 11/30/24 15:00 Temperature 98.5 F Pulse Rate 100 Pulse Rate [Apical ] 89 89 Pulse Rate [Pulse Oximeter] Respiratory Rate 20 18 Blood Pressure [Le ft Arm] 123/95 H Blood Pressure [Ri ght Arm] Pulse Oximetry 92 Oxygen Delivery Me thod Room Air 11/30/24 17:42 11/30/24 19:31 11/30/24 22:22 Temperature 97.8 F Pulse Rate 88 Pulse Rate [Apical ] 92 95 Pulse Rate [Pulse Oximeter] 95 Respiratory Rate 16 Blood Pressure [Le ft Arm] 115/77 126/85 Blood Pressure [Ri ght Arm] Pulse Oximetry 94 Oxygen Delivery Me thod Room Air 11/30/24 23:27 11/30/24 23:31 12/01/24 02:40 Temperature 98.7 F 98.2 F Pulse Rate Pulse Rate [Apical ] 95 Pulse Rate [Pulse Oximeter] 96 96 103 H Respiratory Rate 16 16 16 Blood Pressure [Le ft Arm] 134/108 H Blood Pressure [Ri ght Arm] 125/89 Pulse Oximetry 92 92 Oxygen Delivery Me thod Room Air Room Air 12/01/24 07:00 12/01/24 07:00 12/01/24 07:00 Temperature 98.1 F Pulse Rate 100 Pulse Rate [Apical ] 114 H 114 H Pulse Rate [Pulse Oximeter] Respiratory Rate 17 17 Blood Pressure [Le ft Arm] 125/95 H Blood Pressure [Ri ght Arm] Pulse Oximetry 91 Oxygen Delivery Me thod Room Air 12/01/24 11:00 Temperature 97.8 F Pulse Rate Pulse Rate [Apical ] 84 Pulse Rate [Pulse Oximeter] Respiratory Rate 16 Blood Pressure [Le ft Arm] 114/75 Blood Pressure [Ri ght Arm] Pulse Oximetry 95 Oxygen Delivery Me thod Room Air Labs Labs: Laboratory Results - last 24 hr 12/01/24 06:18 WBC 6.53 RBC 4.23 L Hgb 13.4 L Hct 40.0 MCV 95 MCH 32 MCHC 34 RDW Coeff of Kuldeep 13.4 Plt Count 133 L Neut % (Auto) 58.8 Lymph % (Auto) 24.7 [place] % (Auto) 12.1 H Eos % (Auto) 3.4 Baso % (Auto) 0.8 Neut # (Auto) 3.85 Lymph # (Auto) 1.61 [place] # (Auto) 0.80 Eos # (Auto) 0.22 Baso # (Auto) 0.05 Abs Immat Gran (auto) 0.01 Imm/Tot Granulo (auto) 0.2 Sodium 135 Potassium 3.9 Chloride 104 Carbon Dioxide 27 Anion Gap 4 L BUN 19 Creatinine 1.0 Estimated Creat Clear 46.96 Estimated GFR 73 Glucose 109 Calcium 8.5
--- NOTE | 2024-12-01 18:31 | PC.NURSE ---
End of shift report [id number]: Pleasant and cooperative with cares. Denies any pain or shortness of breath. BLE 2+ pitting edema, patient compliant with elevating legs when at rest. Pulse range 75-100 throughout the shift. Per Ok to start activity, patient ambulated in hallway and pulse ranged from 90-108 while ambulating. Tele continues to read a-fib.
[2024-12-02 01:57] VITALS: BP 128/94; PULSE 90; RESP 18; TEMP 36.8; O2SAT 92
--- NOTE | 2024-12-02 04:18 | PC.NURSE ---
Pt rested well this night. Reporting zero pain. HR controlled. VS unremarkable. Up SBA. Family very helpful. Pt pleasantly confused but cooperative. +2 edema remains bilat LEs. No N/V. Tele Afib with irregular rate.
[2024-12-02 06:56] VITALS: PULSE 111
[2024-12-02 07:00] LABS: Chloride* 104 mmol/L (96-114); Sodium* 135 mmol/L (135-149)
[2024-12-02 07:01] LABS: Potassium* 4.1 mmol/L (3.6-5.1)
[2024-12-02 07:04] LABS: Anion Gap 5 mEq/L (7-15); Blood Urea Nitrogen* 18 mg/dL (7-30); Calcium* 8.8 mg/dL (8.4-10.6); Carbon Dioxide* 26 mmol/L (20-32); Creatinine* 1.0 mg/dL (0.5-1.5); Est. Creatinine Clearance* 46.96; Estimated Glomerular Filt Rate 73 ml/min; Glucose* 120 mg/dL (60-115)
[2024-12-02 07:46] VITALS: BP 144/100; PULSE 132; RESP 16; TEMP 36.4; O2SAT 94
[2024-12-02 07:48] VITALS: PULSE 132; RESP 16
[2024-12-02] MEDS: SODIUM CHLORIDE 0.9 % (FLUSH) 10 ML SYRINGE 5 ML IVF (08:08)
[2024-12-02 08:09] VITALS: PULSE 141
[2024-12-02] MEDS: FUROSEMIDE 20 MG TABLET PO (08:09)
[2024-12-02] MEDS: METOPROLOL TARTRATE 100 MG TABLET PO (08:09)
[2024-12-02] MEDS: APIXABAN 5 MG TABLET PO (08:09)
[2024-12-02] MEDS: DIGOXIN 125 MCG TABLET PO (08:09)
[2024-12-02] MEDS: POTASSIUM CHLORIDE 10 MEQ CAPSULE ER 20 MEQ PO (08:09)
--- NOTE | 2024-12-02 10:12 | P.DS_ITS ---
DS: Providers Provider Time Seen by Provider: 08:19 Date Seen: 12/02/24 Date of admission: 11/28/24 21:31 Primary care physician: Dayday Rivera MD Admitting Clinician: Darby Nazario MD Consults: 11/28/24 21:18 Consult to Nutrition [CONS] Routine Comment: Reason for consult:: Miscellaneous Comment: heart healthy Consult to Physical Therapy [CONS] Routine Comment: Reason(s) for PT Consult:: Evaluate and Treat Any Restrictions?:: No Restrictions Consult to Addictions Counselor [CONS] Routine Comment: Reason for Consult:: Discharge Planning Needs 11/28/24 21:20 Consult to Occupational Therapy [CONS] Routine Comment: Reason(s) for OT Consult:: Evaluate and Treat Any Restrictions?:: No Restrictions Comment: MOCA Attending Physician on discharge: Libby Pruitt MD Date of Discharge: 12/02/24 DS: Diagnosis Discharge Diagnosis (1) Heart failure: Status: Acute Problem details: - acute heart failure with preserved ejection fraction exacerbation - appears clinically fluid overloaded with BLE edema, pleural effusions, elevated BNP - likely 2/2 a fib - 11/29: Satting well on RA. Lasix not given this morning due to hypotension. - 11/30 still satting well. Continue daily Lasix diuresis, creatinine stable, continue to monitor. - 12/01 acute HFpEF exacerbation, likely due to afib with RVR. Transition to oral lasix, starting tomorrow morning - 12/02 exacerbation resolved. Tolerating oral Lasix, creatinine stable. - TTE 11/29: Final Impressions: 1. LVEF 50-55% with significant mvap-ry-ukfy variability. Moderate concentric LVH. 2. The rhythm was afib with RVR during the study [V-rate 110s-130s bpm]. 3. Moderate concentric left ventricular hypertrophy. 4. Wwyh-ye-vprosust MR. 5. Itlo-tt-tjkveesx TR. 6. Mild LAE. 7. Dilated IVC with abnormal respiratory variability. (2) Elevated LFTs: Status: Acute Problem details: - 11/28/24: mild elevation of AST/ALT, unknown baseline, normal bili/alk phos - ddx: congestive hepatopathy, NAFLD, cholecystitis - patient asymptomatic, will follow LFTs and obtain TTE - 12/01 LFTs improved, ECHO as above. Suspect LFT elevation was from liver congestion/HF (3) Hyponatremia: Status: Acute Problem details: - mild, Na of 132 - presumably 2/2 CHF - will not fluid restrict at this time, initiating diuresis on 11/28 and will follow electrolytes - 11/29 resolved. (4) Calcified mesenteric mass: Status: Acute Problem details: - per CT 11/29/23: 5.3 cm calcified lesion within the left central mesentery. Several small calcified lymph nodes within the leslye hepatis. These findings are nonspecific. Differential considerations include sequela of tuberculosis, an inflammatory process, or malignancy/metastatic disease, such as lymphoma. - noted to have a similar finding on CT in 2020, per that Radiology read: Impression: Densely calcified left posterior abdominal mass measuring in total 4.3 x 5.2 x 2.5 centimeters, consistent with multiple calcified lymph nodes, representing sequela of prior granulomatous infection or chronic mesenteritis. Other chronic calcified lymph nodes are present within the periportal and portal caval regions. These findings are not suspicious for malignancy or acute inflammation. - given stability, no acute workup needed; outpatient f/u with PCP if within goals of care (discussed with family on 11/28/24) (5) Atrial fibrillation with RVR: Status: Acute Problem details: - new problem 11/28/24 - minimal results with IV Diltiazem and Metoprolol; given persistent HR>150, will start diltiazem drip - initiate Eliquis for anticoagulation - 11/29 HR improving with oral metoprolol given this morning. Weaning off diltiazem drip. Will titrate up on oral metoprolol as needed for HR control and as BP will allow. If BP low and HR elevated, may need to initiate digoxin load instead of metoprolol. Continue Eliquis for anticoagulation. Discussed with family risk of stroke in setting of afib and the need to monitor for clots in urine since he has true hematuria. - 11/30 HR tachy overnight. He is now on digoxin and metoprolol. He was given a digoxin load without effect. I will therefore stop digoxin. Not hypotensive today. Will trial diltiazem push and then oral diltiazem if he tolerates this. Continue Eliquis. - 12/01 HR well controlled. Advance activity today, transition to Diltiazem CD, continue digoxin and metoprolol. Anticipate will be able to d/c home tomorrow if HR stays well controlled. - 12/02 HR well controlled yesterday and overnight until startled awake for labs just before medications due. Morning meds given and HR improved again. Discussed with family. I've adjusted Cardizem CD to BID to help with am HR control. D/c home. F/u with PCP. (6) Hematuria: Status: Acute Problem details: - new problem as of 11/28/24, source unclear. uncertain how long this has been going on. Reassuring imaging, no pain - urine culture pending - Protein in urine and BLE edema concerning for possible nephrotic/nephritic cause - will need outpatient nephrology referral if that is within goals of care. - Bladder thickening on CT - will need outpatient urology referral/CT angio renal system if that is within goals of care - Monitor Hgb and for clots in urine while starting Eliquis - 11/30 this has resolved. I informed his family that he will still need outpatient nephrology and urology if that is within goals of care DS: Summary Hospital Course Hospital Course: NOTE TO PCP: outpatient f/u for calcified mesenteric mass and hematuria, if within goals of care (discussed with family on 11/28/24) Per H&P: Remington Mora is a 89 year old male who presented to the ER at the behest of his for dark urine and BLE edema. He started having brown/red urine today. No associated dysuria or back pain. noted that he also had BLE edema today, not usual for him. He's not sure how long he's had edema. No leg pain, no redness, no dyspnea. Hasn't had chest pain, but did had some L-sided neck pain this morning that spontaneously resolved. No abdominal pain or nausea. Having a [employer] hamburger and ice cream for dinner. ER: - found to be in a fib with RVR (new problem), rate 130-160s - hematuria with >100 RBCs - CT A/P: distended gallbladder, bladder wall thickening, anasarca, reassuring kidneys/ureters - CTA Chest: no PE, pulmonary edema - given IV Diltiazem x2 without improvement, then Metoprolol 5mg IV x1 and Lasix 40mg IV x1 Doroteo was started on Eliquis along with diltiazem and metoprolol for anticoagulation and heart rate control respectively. He was also given Lasix for heart failure thought to be angry exacerbation due to AFib with RVR. Initially heart rate control was challenging due to hypotension. He responded well to metoprolol and diltiazem drip was weaned off. His heart rate became elevated again and he was given a digoxin load. Heart rate remained elevated and so metoprolol was increased and he was started on oral diltiazem with good affect. He is had good heart rate control with the exception of being awoken for labs in the morning right before his morning medications are due. To account for this I have since split up the Cardizem to morning and in evening dose as well. In discussion with his family today, he is discharged home with improved heart rate control. It is notable that hematuria resolved despite being started on Eliquis. I cautioned his family to monitor for urinary retention as he may have a clot and need to be seen if that develops. He will potentially need further outpatient workup for hematuria and a calcified mesenteric mass found on imaging here, if those are within his goals of care. Time Spent with Patient Time attestation: Total time spent providing and/or coordinating discharge services: Today I spent 35 minutes seeing and discharging the patient, reviewing Expanse and EPIC notes/diagnostics/labs, discussing the care plan with our care team that includes social work, PT/OT, pharmacy, RT, senior care and documenting my impressions and plan in the medical record. Exam Narrative: Exam Narrative: General: No acute distress. Sitting in the bedside chair. Awake, alert, oriented to self. No pallor. No jaundice. Oropharynx: Clear. Mucous membranes moist. Cardiovascular: Irregularly irregular. No murmurs, gallops, or rubs. Respiratory: Clear to auscultation bilaterally, no wheezes or crackles. Extremities: Trace lower extremity pitting edema to knees bilaterally. Const: Vital Signs, click to edit/add: Vital Signs - 24 hr 12/01/24 11:00 12/01/24 14:58 12/01/24 14:58 Temperature 97.8 F Pulse Rate 90 Pulse Rate [Apical ] 84 91 Pulse Rate [Pulse Oximeter] Respiratory Rate 16 16 Blood Pressure [Le ft Arm] 114/75 Blood Pressure [Ri ght Arm] Pulse Oximetry 95 Oxygen Delivery Me thod Room Air 12/01/24 14:58 12/01/24 19:24 12/01/24 19:44 Temperature 97.5 F L 98.2 F Pulse Rate 90 Pulse Rate [Apical ] 91 Pulse Rate [Pulse Oximeter] 98 Respiratory Rate 18 16 Blood Pressure [Le ft Arm] 110/69 Blood Pressure [Ri ght Arm] 114/87 Pulse Oximetry 92 94 Oxygen Delivery Me thod Room Air Room Air 12/01/24 22:02 12/01/24 22:04 12/02/24 01:57 Temperature 97.7 F 98.2 F Pulse Rate Pulse Rate [Apical ] Pulse Rate [Pulse Oximeter] 94 94 90 Respiratory Rate 16 16 18 Blood Pressure [Le ft Arm] 138/85 Blood Pressure [Ri ght Arm] 128/94 H Pulse Oximetry 97 92 Oxygen Delivery Me thod Room Air Room Air 12/02/24 06:56 12/02/24 07:46 12/02/24 07:48 Temperature 97.6 F Pulse Rate 111 H Pulse Rate [Apical ] Pulse Rate [Pulse Oximeter] 132 H 132 H Respiratory Rate 16 16 Blood Pressure [Le ft Arm] 144/100 H Blood Pressure [Ri ght Arm] Pulse Oximetry 94 Oxygen Delivery Me thod Room Air 12/02/24 08:09 Temperature Pulse Rate 141 H Pulse Rate [Apical ] Pulse Rate [Pulse Oximeter] Respiratory Rate Blood Pressure [Le ft Arm] Blood Pressure [Ri ght Arm] Pulse Oximetry Oxygen Delivery Me thod DS: Data Data Completed and Pending Completed studies during hospitalization: 11/28/2024 EKG: Atrial fibrillation with rapid ventricular response, 184 beats per minute, left axis deviation, nonspecific ST abnormality. 11/29/2024 echocardiogram: LVEF 50-55% with significant qepn-qg-pnzf variability. Moderate concentric LVH. The rhythm was AFib with RVR during the study [V rate 110s to 130s bpm.] Moderate concentric left ventricular hypertrophy. Mild to moderate MR. Mild to moderate TR. Mild Deedee E. Dilated IVC with abnormal respiratory variability. 11/29/2024 Urine Culture* Final ML < 10,000 COL/ML MIXED GRAM POSITIVE HAKEEM ISOLATED NO FURTHER WORKUP Ordering Physician: Nichole Harp M.D. Date of Service: 11/28/24 Procedure(s): XR chest 1V portable Accession Number(s): [id number] cc: Nichole Harp M.D.; Dayday Rivera M.D.~ For Patients: As a result of the Cures Act, medical imaging exams and procedure reports are released immediately into your electronic medical record. You may view this report before your referring provider. If you have questions, please contact your health care provider. INDICATION: Atrial fibrillation. TECHNIQUE: Chest 1 view. COMPARISON: 11/16/2023. FINDINGS: Cardiovascular and mediastinum: Normal heart size. Atherosclerotic thoracic aorta. Lungs and pleural spaces: Bibasilar opacities. Blunting of both costophrenic angles. No pneumothorax. Bones and soft tissues: Unremarkable for age. IMPRESSION: Bibasilar opacities with blunting of both costophrenic angles may represent pulmonary edema and/or atelectasis with small pleural effusions. Multifocal infection could also appear similar. Dictated by Jonathan Ku MD @ 11/28/2024 6:25:44 PM (Electronically Signed) Ordering Physician: Nichole Harp M.D. Date of Service: 11/28/24 Procedure(s): CT abdomen pelvis w con Accession Number(s): [id number] cc: Nichole Harp M.D.; Dayday Rivera M.D.~ For Patients: As a result of the Cures Act, medical imaging exams and procedure reports are released immediately into your electronic medical record. You may view this report before your referring provider. If you have questions, please contact your health care provider. INDICATION: Hematuria, decreased urination. TECHNIQUE: CT abdomen and pelvis acquired with 95 cc of Isovue 370 IV contrast. COMPARISON: Chest CT from the same day. FINDINGS: Lower chest: Dictated separately. Liver: No suspicious mass. Mild periportal edema. Gallbladder and bile ducts: Distended gallbladder with mural thickening versus pericholecystic fluid. Pancreas: Unremarkable. No mass or inflammation. Spleen: Unremarkable. Normal in size. No masses. Adrenal glands: Unremarkable. No nodules. Kidneys: Unremarkable. No suspicious masses, stones, or hydronephrosis. GI tract: Unremarkable. Normal in caliber. No sign of mass or inflammation. No evidence for appendicitis. Vasculature: Normal caliber abdominal aorta with moderate atherosclerotic calcification. Mesenteric arteries are patent. Lymph nodes: Calcified lymph nodes within the leslye hepatis. Peritoneum/Abdominal Wall: Mild anasarca. 5.3 cm calcified lesion within the left central mesentery, nonspecific. No free air or significant free fluid. Pelvis: Mild circumferential bladder wall thickening. Prostatomegaly. Bones: Unremarkable for age. IMPRESSION: 1. Distended gallbladder with mural thickening versus pericholecystic fluid. Recommend correlation for acute cholecystitis. 2. Mild circumferential bladder wall thickening. Recommend correlation for cystitis. 3. Mild anasarca. 4. 5.3 cm calcified lesion within the left central mesentery. Several small calcified lymph nodes within the leslye hepatis. These findings are nonspecific. Differential considerations include sequela of tuberculosis, an inflammatory process, or malignancy/metastatic disease, such as lymphoma. Please note that all CT scans at this facility use dose modulation, iterative reconstruction, and/or weight-based dosing when appropriate to reduce radiation dose to as low as reasonably achievable. Dictated by Jonathan Ku MD @ 11/28/2024 8:10:39 PM (Electronically Signed) Ordering Physician: Nichole Harp M.D. Date of Service: 11/28/24 Procedure(s): CT angio chest PE protocol Accession Number(s): [id number] cc: Nichole Harp M.D.; Dayday Rivera M.D.~ For Patients: As a result of the 21st Century Cures Act, medical imaging exams and procedure reports are released immediately into your electronic medical record. You may view this report before your referring provider. If you have questions, please contact your health care provider. INDICATION: Rapid AFib, elevated D-dimer. TECHNIQUE: CT chest PE was acquired with 95 cc Isovue 370 IV contrast. COMPARISON: Chest radiograph and CT abdomen and pelvis from the same day. FINDINGS: Heart and vasculature: Contrast opacification of the pulmonary arterial tree is adequate. No sign of pulmonary embolism. Heart size is normal. Thoracic aorta and pulmonary artery are normal in caliber. Coronary artery and thoracic aorta atherosclerotic calcification. Lungs and pleura: Interlobular septal thickening within the lung bases. Moderate right and small left pleural effusions. No pneumothorax. Lymph nodes/mediastinum: No mediastinal, hilar, or axillary adenopathy. Chest wall: No masses. Upper abdomen: Dictated separately. Bones: Unremarkable for age. IMPRESSION: 1. No pulmonary embolism. 2. Bibasilar interlobular septal thickening with moderate right and small left pleural effusions. Constellation of findings compatible with pulmonary edema/volume overload. Diffuse infection could also appear similar. Please note that all CT scans at this facility use dose modulation, iterative reconstruction, and/or weight-based dosing when appropriate to reduce radiation dose to as low as reasonably achievable. Dictated by Jonathan Ku MD @ 11/28/2024 8:01:17 PM (Electronically Signed) Labs on day of discharge: Labs from last 24 hours 12/02/24 06:36 Sodium 135 Potassium 4.1 Chloride 104 Carbon Dioxide 26 Anion Gap 5 L BUN 18 Creatinine 1.0 Estimated Creat Clear 46.96 Estimated GFR 73 Glucose 120 H Calcium 8.8 Discharge Plan Discharge Disposition: Home, Self-Care Date of Admission: 11/28/24 21:31 Attending Provider on Discharge: Libby Pruitt Primary Care Provider: Dayday Rivera Condition: Improved Anticipated Discharge Date/Time: 12/02/24 10:33 Discharge Medications: New Eliquis 5 mg Tablet 5 mg PO BID Qty: 60 0RF potassium chloride 10 mEq Capsule, Extended Release 20 meq PO DAILYWM Qty: 30 0RF metoprolol tartrate 100 mg Tablet 100 mg PO BID Qty: 60 0RF diltiazem HCl [DILT-XR] 120 mg Capsule,Ext.Rel 24h Degradable 120 mg PO BID Qty: 60 0RF digoxin 125 mcg (0.125 mg) Tablet 125 mcg PO DAILY Qty: 30 0RF furosemide 20 mg Tablet 20 mg PO DAILY@0800 Qty: 30 0RF Continued multivitamin Tablet 1 tab PO QDAY calcium carbonate [Calcium 500] 500 mg calcium (1,250 mg) tablet,chewable 500 mg PO QDAY cholecalciferol (vitamin D3) 125 mcg (5,000 unit) capsule 125 mcg PO QDAY Discharge Orders: Discharge Order (Routine); Ordered 12/02/24 Ordered By: Libby Pruitt Activity Level: No Restrictions Discharge Diet: Regular Follow Up Appointments: Dayday Rivera MD [Primary Care Provider, Family Practice] Referral Note: or Monday this week, BMP and digoxin level Forms: [facility], [facility] Info Instructions
[2024-12-02 10:24] VITALS: BP 133/90; PULSE 110; RESP 16; TEMP 36.4; O2SAT 94
--- NOTE | 2024-12-02 13:13 | PC.NURSE ---
discharge/ pt has been very pleasant. he is alert x4. no pain. Denies shortness of breath. BLE 2+ pitting edema, patient compliant with elevating legs when at rest. Pulse range 100-150 throughout the shift. ambulated in hallway and pulse ranged from 100-140 while ambulating. Tele continues to read a-fib. went over discharge packet with pt. SL was d/c x2. tele was d/c. pt got a w/c ride to his car and was helped in to car.
== END 2024-12-02 13:10 | disposition home or self-care (01) | DRG 308 ==
LOC: ED 18:12 → MEDSURG 20:34
PROVIDERS: Family Medicine; Admitting Provider Family Medicine; Emergency Provider Emergency Medicine; PCP Family Medicine; Visit Provider Family Medicine
DX: I48.91 Unspecified atrial fibrillation (principal); I50.33 Acute on chronic diastolic (congestive) heart failure; Z59.02 Unsheltered homelessness; E87.1 Hypo-osmolality and hyponatremia; R31.0 Gross hematuria; R74.01 Elevation of levels of liver transaminase levels; K66.8 Other specified disorders of peritoneum; I08.1 Rheumatic disorders of both mitral and tricuspid valves
CPT/HCPCS: 36415; 71045; 71275; 74177; 80048; 80053; 80076; 81001; 83605; 83735; 83880; 84443; 84484; 85025; 85379; 85610; 86140; 87086; 93306; 97161; 97165; 99284; 99285; A9270; J1938; J3475; J3490; J7050; Q9967

== ENCOUNTER 2025-01-07 14:33 | Outpatient (CLI) | payer MEDICARE, SELFPAY ==
--- NOTE | 2025-01-07 15:00 | CRLHL7_ITS ---
For Patients: As a result of the Century Cures Act, medical imaging exams and procedure reports are released immediately into your electronic medical record. You may view this report before your referring provider. If you have questions, please contact your health care provider. INDICATION: Hematuria. TECHNIQUE: CT abdomen and pelvis urogram without and with 100 cc Isovue 370 contrast. Contrast images were obtained in the nephrographic and delayed phases. COMPARISON: 11/28/2024 FINDINGS: KIDNEYS: The unenhanced images demonstrate no kidney or ureteral stones. The kidneys are normal in caliber and demonstrate normal uptake and excretion of IV contrast. No masses. The renal collecting systems and ureters are symmetrical, normal in caliber, and without evidence of mass or filling defect. URINARY BLADDER: Bladder is distended. Prostate is enlarged with coarse calcifications present. Mild trabeculation of the bladder wall noted. No bladder stones. OTHER: Bilateral pleural effusions again noted, right greater than left. Adjacent atelectasis. No pericardial effusion. Atherosclerotic changes. Similar small hypodense cysts within the liver. Gallbladder is incompletely distended with similar appearance of the gallbladder wall. Spleen is not enlarged. No adrenal nodule. Pancreatic parenchyma is similar. Extensive atherosclerotic changes. No bowel obstruction or free air. No abscess. Multilevel degenerative changes. No acute fracture. Similar bilateral inguinal lymph nodes. Unchanged coarse calcifications in the mesenteric fat. IMPRESSION: 1. Prostatomegaly with bladder distention and mild bladder wall trabeculation. 2. No renal, ureteral or bladder stone. Please note that all CT scans at this facility use dose modulation, iterative reconstruction, and/or weight-based dosing when appropriate to reduce radiation dose to as low as reasonably achievable. Dictated by Dhruv Harrington MD @ 01/08/2025 12:50:41 PM (Electronically Signed)
[2025-01-07 15:06] LABS: Creatinine* 1.1 mg/dL (0.5-1.5); Estimated Glomerular Filt Rate 65 ml/min
== END 2025-01-07 14:34 | disposition home or self-care (01) ==
PROVIDERS: PCP Family Medicine; Visit Provider Urology
DX: R31.0 Gross hematuria (principal); N40.0 Benign prostatic hyperplasia without lower urinary tract symptoms
CPT/HCPCS: 36415; 74178; 82565; Q9967

== ENCOUNTER 2025-01-12 13:15 | Inpatient (IN) | payer MEDICARE, SELFPAY ==
[2025-01-12] VITALS (30 sets, daily range): BP systolic 86–150; BP diastolic 54–115; PULSE 67–175; RESP 16–32; TEMP 36.6–36.8; O2SAT 92–96; BMI 24.9; BMI 26.6
--- OUTSIDE RECORDS SUMMARY | 2025-01-12 13:17 | XMS_ITS | Data Portability ---
Author Organization [place] [facility] Address [address] [place] [address] Care Team Providers Care Monument Setter Name Role Phone LEEANN OGLESBY Primary Care Provider [phone] Assessment Encounter Date Assessment Date Assessment LastModified by Organization Details LastModified Time 12/31/2024 12/31/2024 89-year-old male diagnosed A-fib on Eliquis presenting for evaluation of episode of gross hematuria. [email or web address] Not available 12/29/2024 21:38:01 Plan of Treatment Reminders Order Date Submit Date Provider Last Modified By Organization Details Last Modified Time Details Appointments None recorded. Lab urinalysi s, dipstick 2024 [facility], [address] [place], [address], 17:27:52 Referral None recorded. Procedures None recorded. Surgeries None recorded. Imaging CT, urogram 2024 [facility], [address] [place], [address], 20:57:20 Medication Orders None recorded. Patient TargetsNo targets recorded. Patient InstructionsNo instructions recorded. Reason for Referral None Reported. Results Created Date Observation Date Name Description Value Unit Range Abnormal Flag Note LastModifiedBy Organization Detail LastModifiedTime 01/01/20 25 12/31/2024 urina lysis , dipst ick BLOOD Negati ve Not Available [facility] [address], [place], [address], 12/31/2024 14:59:28 01/01/2012/31/2024 urina lysis , dipst ick BILIRUBIN Negati ve Not Available [facility] [address], [place], [address], 12/31/2024 14:59:28 01/01/2012/31/2024 urina lysis , dipst ick UROBILINOGEN 0.2 mg/dL (Norm) Not Available [facility] [address], [place], [address], 12/31/2024 14:59:28 01/01/2012/31/2024 urina lysis , dipst ick KETONES Negati ve Not Available [facility] [address], [place], [address], 12/31/2024 14:59:28 01/01/2012/31/2024 urina lysis , dipst ick PROTEIN Negati ve Not Available [facility] [address], [place], [address], 12/31/2024 14:59:28 01/01/2012/31/2024 urina lysis , dipst ick NITRITES Negati ve Not Available [facility] [address], [place], [address], 12/31/2024 14:59:28 01/01/2012/31/2024 urina lysis , dipst ick GLUCOSE Negati ve Not Available [facility] [address], [place], [address], 12/31/2024 14:59:28 01/01/2012/31/2024 urina lysis , dipst ick p.H. 5.0 Not Available [facility] [address], [place], [address], 12/31/2024 14:59:28 01/01/2011 0112/31/2024 urina lysis , dipst ick S.G. (Specific [place]) 1.025 Not Available [facility] [address], [place], [address], 12/31/2024 14:59:28 01/01/20 25 12/31/2024 urina lysis , dipst ick LEUKOCYTES Negati ve Not Available [facility] [address], [place], [address], 12/31/2024 14:59:28 12/26/1911/28/2024 imagi ng/di agnos tic resul t No observ ation record ed. [address] [place], [address], 12/26/2024 09:05:45 12/26/1911/28/2024 CT, abdom en + pelvi s, w/ contr ast No observ ation record ed. [facility] [address] [place], [address], 01/01/2025 09:26:03 12/26/1911/28/2024 XR, chest , 1 view No observ ation record ed. [address] [place], [address], 12/26/2024 09:04:59 01/02/2011/28/2024 CT, abdom en + pelvi s, w/ contr ast No observ ation record ed. [address] [facility] Records [address] [place], [address], 01/01/2025 14:38:22 01/02/2011/28/2024 imagi ng/di agnos tic resul t No observ ation record ed. [address] [place], [address], 01/01/2025 14:38:11 Result Notes None recorded. Problems Name Problem SNOMED Code Status Onset Date Resolution Date Notes Provider Name and Address Organization Details Recorded Time Juan Daniel hematuria 544763797 Active 2024 Jaqueline Lau MD [address] [place] [address],[address], [address], [facility] 21:38:06 Benign prostatic hyperplasia with outflow obstruction 871175977 Active 2024 Jaqueline Lau MD [address] [place] [address],[address] [place] [address], [phone], [facility] 17:27:28 Problem Notes None recorded. Procedures Surgical History Date Name Laterality Status Provider Name and Address Organization Details Recorded Time Cystoscopy- male completed Jaqueline Lau MD [address] [place] [address],[address], [place], [address], [facility] 12/31/2024 17:24:09 Bladder Scan completed Emmanuel Reynoso [facility] 12/31/2024 16:31:46 Imaging Results None recorded. Procedure Notes None recorded. Medical Equipment None Reported. Allergies No known drug allergies Medications Name Sig Start Date Stop Date Status Note LastModified by Organization Details LastModified Time metoprolol tartrate 100 mg tablet TAKE 1 TABLET BY MOUTH TWICE DAILY active Not Available Not Available No t Available erythromycin 5 mg/gram (0.5 %) eye ointment APPLY THIN STRIP TO BOTH UPPER LIDS AT BEDTIME FOR 1 MONTH 12/31 completed Not Available Not Available Not Available digoxin 125 mcg (0.125 mg) tablet TAKE 1 TABLET BY MOUTH DAILY 12/31 completed Not Available Not Available Not Available furosemide 20 mg tablet TAKE 1 TABLET BY MOUTH DAILY AT 8 AM active Not Available Not Available No t Available DILT-XR 120 mg capsule, extended release TAKE 1 CAPSULE BY MOUTH TWICE DAILY active Not Available Not Available No t Available potassium active Not Available Not Leana ilable Not Available Eliquis 5 mg tablet TAKE 1 TABLET BY MOUTH TWICE DAILY active Not Available Not Available No t Available Vitals Date Recorded Body height Body mass index (BMI) Body weight Provider Name and Address Organization Details Last Updated DateTime 12/31/2024 157.48 cm 28.3 kg/m2 66338.82 g Ita Welch [facility] 12/31/2024 15:07:32 Social History Question Answer Notes LastModified by Organizat ion Details LastModified Time Tobacco Smoking Status Former Smoker Ita Welch dottie [facility] 12/31/2024 15:11:02 What Is Your Level Of Caffeine Consumption? Moderate Information not available 12/31/2024 When Did You Quit Smoking? 16+yearssincel astcigarette [email or web address] Information not available 12/31/2024 What Was The Date Of Your Most Recent Tobacco Screening? 12/31/2024 [email or web address] Information not available 12/31/2024 Sex: Unknown Functional Status Question Answer Note LastModified by Organization D etails LastModified Time What is your level of alcohol consumption? None [email or web address] Information not available 12/31/2024 Mental Status None recorded. Family History Relationship Description Onset Age of this Age Resolved Age Notes LastModified by Organization Details LastModified Time Father Malignant neoplasm of colon [email or web address] Not available 15:10:03 Medical History Condition Response Diabetes N Other Y Bleeding Disorder N High Blood Pressure Y Kidney Stones N High Cholesterol N Heart Disease N Cancer N Lung Disease N Depression N Immunizations Vaccine Type Date Status Note Provider Nam e and Address Organization Details Recorded Time Td (adult), 5 Lf tetanus toxoid, preservative free, adsorbed 8 completed Not Available [facility] 12/31/2024 14:40:53 pneumococcal polysaccharide PPV23 0 completed Not Available [facility] 12/31/2024 14:40:53 Tdap 0 completed Not Available [facility] 12/31/2024 14:40:53 Past Encounters Encounter ID Performer Location Encounter Start Date Encounter Closed Date Diagnosis/Indication Diagnosis SNOMED-CT Code Diagnosis ICD10 Code Diagnosis IMO Codes Diagnosis Note [id number] MD YOGI Mcnamara[facility]Te[facility] [address] [place] [address] 12/31/2024 14:40:08 12/31/2024 17:29:04 Juan Daniel hematuria [id number] R31.0 721083 - Cystoscopy in the office today demonstrat es: no tumors or lesions, evidence of severe trabeculat ion- PVR post void is 0 cc- Discussed need for urogram to complete workup- RTC to review imaging once complete Benign pro static hyperplasia with outflow obstruction 066724986 N40.1 N13.8 274061 Voiding with low PVR, not significan tly botheredCo ntinue observatio n Health Concerns Section Related Observation LastModified by Organization Detai ls LastModified Time None Recorded Concern Status LastModified by Organization Details LastModified Time None Recorded Advance Directives Directive None Recorded Payers Insurance Date Sequence Insurance Name Policy Number Policy West Covered Member ID West Member ID Guarantor Name 12/12/[address] [facility] [id number] Remington Arias Rezac [id number] Remington Arias Rezac 12/28/2024 1 [facility] (MEDICARE REPLACEMENT/A DVANTAGE - PPO) [id number] Remington B Rezac [id number] Remington B Rezac 12/12/2024 1 [place] [employer] [facility] Remington Arias Rezac [id number] Remington Arias Rezac Notes Date Note Type Note Provider Name and Address Organization Details Recorded Time 12/31/2024 text/html 89-year-old male presenting for evaluation of recent episode of gross hematuria. Also recently seen in the emergency department with new onset A-fib with RVR. Started on Eliquis. Hematuria began before this time. - No prior episodes of gross haematuria.- History of smoking for 45 years, approximately one pack per day. CT abdomen pelvis obtained on 11/28/2024 with bladder wall thickening but no evidence of renal masses. Of note this is not a urogram. Presents today with and daughter Jaqueline Lau MD [address] [place] [address],[address], [place], [address], [facility] 12/31/2024 17:29:00
--- OUTSIDE RECORDS SUMMARY | 2025-01-12 13:17 | XMS_ITS | Clinical Summary ---
Author Organization [facility] Address [address] [place] [address] Care Team Providers Care Promotions Assistant Name Role Phone Wm Woodall MD Primary Care Provider + Allergies No [...] shoulder region 09/18/2007 Unspecified essential hypertension 07/12/2007 Encounters Date Type Department Care Team Description 11/29/2024 3:00 PM CDT Ancillary Procedure [facility] [address] [place] [address] from Last 3 Months Immunizations Immunization Administration Dates Next Due Td, Preservative Free (age >= 7 Years) 8 Family History Medical History Relation Name Comments Other Brother 5 two infanc y, 2 in 70-'s not sure reason Other Father d81 cancer Other Mother d96 Other Sister 5 d65 [place] Heart Disease Son congenital. di ea about [...] = 0.6 oz pur e alcohol) quit 1968 Sex and Gender Information Value Date Recorded Sex Assigned at Not on file Legal Sex Male 7:28 AM [employer]LL[employer]PER[employer] Gender Identity Not on file Sexual Orientation [...] 07/11/2017 07/12/2007 COVID-19 vaccine series (1 - season) 2024 Influenza Vaccine (#1) 2024 Hepatitis B series for 19+ Aged Out N o longer eligible based on patient's age to complete this topic Procedures Procedure Name Priority Date/Time Associated Diagnosis Comments ECHO TTE COMPLETE WO CONTRAST Routine 11/29/2024 3:55 PM CDT Atrial fibrillation with RVR (HC) CHF (congestive heart failure) (HC) from Last 3 Months Results * ECHO TTE COMPLETE WO CONTRAST (11/29/2024 3:55 PM CDT) AORTIC VALVE MEAN PG 6 mmHg EJECTION FRACTION 47 % PEAK TR VELOCITY 2.9 m/s LVEDD 4.1 cm EJECTION FRACTION 50 - 55% Anatomical Region Laterality Modality Ultrasound 11/29/2024 2:51 PM CDT Narrative 11/29/2024 4:29 PM CDT ECHOCARDIOGRAM KARRIE MORA : 1935 89 years Study Date: 11/29/2024 2:51:00 PM Gender: M BP: 121/94 mmHg Height: 165.00 cm BSA: 1.87 m Weight: 80.00 kg Tech: [facility] Referring MD: DARBY AGUILAR Site: [facility] Reading Location: MOBILE IP Patient Location: Inpatient. Procedure: 2D, Color Doppler and Spectral Doppler. Indication for study: Atrial fibrillation with RVR (HC); CHF (congestive heart failure) (HC) Cardiac Rhythm: Irregular and atrial fibrillation.Study quality: Fair. Imaging limitations: This study was subject to imaging limitations due to body habitus. Final Impressions: 1. LVEF 50-55% with significant mxaq-rn-pfcf variability. Moderate concentric LVH. 2. The rhythm was afib with RVR during the study [V-rate 110s-130s bpm]. 3. Moderate concentric left ventricular hypertrophy. 4. Oxvt-hm-nbuzrrug MR. 5. Ewde-qb-yaohbnwp TR. 6. Mild LAE. 7. Dilated IVC with abnormal respiratory variability. Chamber Sizes and Function Moderate concentric left ventricular hypertrophy. No resting regional wall motion abnormality visualized. Left atrial size is mildly enlarged. Right ventricular cavity size is normal, global systolic RV function is normal. The right atrium is mildly enlarged. Right atrial volume index is 35 ml/m . Right atrial area is 21 cm . The pulmonary artery is not well visualized. The sinus of Valsalva is normal sized. The ascending aorta is normal sized. Valves, RV Pressures and Diastolic Function The aortic valve is normal in structure, trileaflet and sclerotic, no stenosis and mild regurgitation. The mitral valve is normal in structure, mild to moderate mitral regurgitation. Mitral annular calcification is present. Indeterminate pattern of LV diastolic filling. The tricuspid valve is normal in structure, mild-moderate tricuspid regurgitation. The tricuspid regurgitant velocity is 2.9 m/s, the estimated right ventricular systolic pressure is 33 mmHg plus right atrial pressure. The pulmonic valve is not well visualized. Mild pulmonary regurgitation. Masses, Effusion, Shunts There is no pericardial effusion. The inferior vena cava is dilated, respiratory size variation less than 50%. No left to right shunting was detected by limited color flow Doppler interrogation of the interatrial septum. MEASUREMENTS AND CALCULATIONS 2-D Measurements and LV Function: LVID (d) 4.1 cm LV FS% (2D) 18 % LVID (s) 3.3 cm LVOT diameter 2.1 cm IVS (d) 1.5 cm HR 135 bpm LVPW (d) 1.5 cm LA Vol index 41 ml/m2 Ao Sinus 3.9 cm RA Vol index 35 ml/m2 Ao Sinus ULN 4.1 cm * RA area 21 cm Asc Ao 4.0 cm RV Basal Diam 4.1 cm Asc Ao ULN 4.3 cm * RV Mid Diam 2.3 cm * Input age outside of range, reported values correspond to Age = 82 Diastology: Mitral Tissue Doppler E Peak 1.1 m/s e', Septum 0.08 m/s DT 159 msec e', Lateral 0.09 m/s E/e' Average 12.80 Aortic Valve: Vmax 1.5 m/s ZEFERINO (V) 1.90 cm VTI 0.28 m ZEFERINO (I) 2.01 cm LVOT V max 0.9 m/s Max PG 9 mmHg LVOT VTI 0.17 m Mean PG 6 mmHg SV 56 ml Dim Index 0.60 SV index 30 ml/m CO 7.5 l/min CI 4.0 l/min/m Mitral Valve: MVA 4.8 cm MR TVI 1.32 m MV P 1/2 46 msec MV Mean G 3 mmHg MV VTI 0.21 m Tricuspid Valve and estimated PA pressures: TR Vmax 2.9 m/s TAPSE 1.0 cm TR maxG 33 mmHg . This study was interpreted by an IAC accredited facility. CC: Med/Surg - IP [facility]. Final Procedure Note Doyle Walsh MD - 11/29/2024 ECHOCARDIOGRAM KARRIE MORA : 1935 89 years Study Date: 11/29/2024 2:51:00 PM Gender: M BP: 121/94 mmHg Height: 165.00 cm BSA: 1.87 m Weight: 80.00 kg Tech: [facility] Referring MD: DARBY AGUILAR Site: [facility] Reading Location: MOBILE IP Patient Location: Inpatient. Procedure: 2D, Color Doppler and Spectral Doppler. Indication for study: Atrial fibrillation with RVR (HC); CHF (congestiveheart failure) (HC) Cardiac Rhythm: Irregular and atrial fibrillation.Study quality: Fair. Imaging limitations: This study was subject to imaging limitations due tobody habitus. Final Impressions: 1. LVEF 50-55% with significant zfry-dw-hram variability. Moderateconcentric LVH. 2. The rhythm was afib with RVR during the study [V-rate 110s-130sbpm]. 3. Moderate concentric left ventricular hypertrophy. 4. Rcmw-kz-dqhahgsj MR. 5. Xslb-mh-fjtgzirw TR. 6. Mild LAE. 7. Dilated IVC with abnormal respiratory variability. Chamber Sizes and Function Moderate concentric left ventricular hypertrophy. No resting regional wallmotion abnormality visualized. Left atrial size is mildly enlarged. Rightventricular cavity size is normal, global systolic RV function is normal.The right atrium is mildly enlarged. Right atrial volume index is 35ml/m . Right atrial area is 21 cm . The pulmonary artery is not wellvisualized. The sinus of Valsalva is normal sized. The ascending aorta isnormal sized. Valves, RV Pressures and Diastolic Function The aortic valve is normal in structure, trileaflet and sclerotic, nostenosis and mild regurgitation. The mitral valve is normal in structure,mild to moderate mitral regurgitation. Mitral annular calcification ispresent. Indeterminate pattern of LV diastolic filling. The tricuspidvalve is normal in structure, mild-moderate tricuspid regurgitation. Thetricuspid regurgitant velocity is 2.9 m/s, the estimated right ventricularsystolic pressure is 33 mmHg plus right atrial pressure. The pulmonicvalve is not well visualized. Mild pulmonary regurgitation. Masses, Effusion, Shunts There is no pericardial effusion. The inferior vena cava is dilated,respiratory size variation less than 50%. No left to right shunting wasdetected by limited color flow Doppler interrogation of the interatrialseptum. MEASUREMENTS AND CALCULATIONS 2-D Measurements and LV Function: LVID (d) 4.1 cm LV FS% (2D) 18% LVID (s) 3.3 cm LVOT diameter2.1 cm IVS (d) 1.5 cm HR135 bpm LVPW (d) 1.5 cm LA Vol index 41ml/m2 Ao Sinus 3.9 cm RA Vol index 35ml/m2 Ao Sinus ULN 4.1 cm * RA area 21cm Asc Ao 4.0 cm RV Basal Diam4.1 cm Asc Ao ULN 4.3 cm * RV Mid Diam2.3 cm * Input age outside of range, reported values correspond to Age = 82 Diastology: Mitral Tissue Doppler E Peak 1.1 m/s e', Septum 0.08 m/s DT 159 msec e', Lateral 0.09 m/s E/e' Average 12.80 Aortic Valve: Vmax 1.5 m/s ZEFERINO (V) 1.90 cm VTI 0.28 m ZEFERINO (I) 2.01 cm LVOT V max 0.9 m/s Max PG 9 mmHg LVOT VTI 0.17 m Mean PG 6 mmHg SV 56 ml Dim Index 0.60 SV index 30 ml/m CO 7.5 l/min CI 4.0 l/min/m Mitral Valve: MVA 4.8 cm MR TVI 1.32 m MV P 1/2 46 msec MV Mean G 3 mmHg MV VTI 0.21 m Tricuspid Valve and estimated PA pressures: TR Vmax 2.9 m/s TAPSE 1.0 cm TR maxG 33 mmHg . This study was interpreted by an IAC accredited facility. CC: Med/Surg - IP [facility]. Final Darby Aguilar MD ECHO ORD Final Resu lt from Last 3 Months Insurance [facility] BL[facility] [place] [place] ONLY Care Teams Promotions Assistant Relationship Specialty Start Date End Date Votel, Wm Robles MD [address] [place] [address] PCP - General Family Practice 08/05/14
--- OUTSIDE RECORDS SUMMARY | 2025-01-12 13:18 | XMS_ITS | Continuity of Care Document ---
Author Organization [facility], [facility] Address [address] [place] [address] Care Team Providers Care Dimension Quarry Supervisor Name Role Phone LEEANN OGLESBY Primary Care Provider Assessment Encounter Date Assessment Date Assessment LastModified by Organization Details LastModified Time 12/31/2024 12/31/2024 89-year-old male diagnosed A-fib on Eliquis presenting for evaluation of episode of gross hematuria. [email or web address] Not available 12/29/2024 21:38:01 Plan of Treatment Reminders Order Date Submit Date Provider Last Modified By Organization Details Last Modified Time Details Appointments None recorded. Lab urinalysi s, dipstick 2024 [facility], [address], [place], [address], 17:27:52 Referral None recorded. Procedures None recorded. Surgeries None recorded. Imaging CT, urogram 2024 [facility], [address] [place], [address], 20:57:20 Medication Orders None recorded. Patient TargetsNo targets recorded. Patient InstructionsNo instructions recorded. Reason for Referral None Reported. Results Created Date Observation Date Name Description Value Unit Range Abnormal Flag Note LastModifiedBy Organization Detail LastModifiedTime 01/01/2012/31/2024 urina lysis , dipst ick BLOOD Negati ve Not Available [facility] [address], [place], [address], 12/31/2024 14:59:28 01/01/2012/31/2024 urina lysis , dipst ick BILIRUBIN Negati ve Not Available [facility] [address], [place], [address], 12/31/2024 14:59:28 01/01/2012/31/2024 urina lysis , dipst ick UROBILINOGEN 0.2 mg/dL (Norm) Not Available [facility] [address], [place], [address], 12/31/2024 14:59:28 01/01/2012/31/2024 urina lysis , dipst ick KETONES Negati ve Not Available [facility] [address], [place], [address], 12/31/2024 14:59:28 01/01/2012/31/2024 urina lysis , dipst ick PROTEIN Negati ve Not Available [facility] [address], [place], [address], 12/31/2024 14:59:28 01/01/2012/31/2024 urina lysis , dipst ick NITRITES Negati ve Not Available [facility] [address], [place], [address], 12/31/2024 14:59:28 01/01/2012/31/2024 urina lysis , dipst ick GLUCOSE Negati ve Not Available [facility] [address], [place], [address], 12/31/2024 14:59:28 01/01/2012/31/2024 urina lysis , dipst ick p.H. 5.0 Not Available [facility] [address], [place], [address], 12/31/2024 14:59:28 01/01/2012/31/2024 urina lysis , dipst ick S.G. (Specific [place]) 1.025 Not Available [facility] [address], [place], [address], 12/31/2024 14:59:28 01/01/2012/31/2024 urina lysis , dipst ick LEUKOCYTES Negati ve Not Available [facility] [address], [place], [address], 12/31/2024 14:59:28 12/26/1911/28/2024 imagi ng/di agnos tic resul t No observ ation record ed. [address] [place], [address], 12/26/2024 09:05:45 12/26/1911/28/2024 CT, abdom en + pelvi s, w/ contr ast No observ ation record ed. [facility] [address] [place], [address], 01/01/2025 09:26:03 12/26/1911/28/2024 XR, chest , 1 view No observ ation record ed. [address] [place], [address], 12/26/2024 09:04:59 01/02/2011/28/2024 CT, abdom en + pelvi s, w/ contr ast No observ ation record ed. [address] Medical Records [address] [place], [address], 01/01/2025 14:38:22 01/02/2011/28/2024 imagi ng/di agnos tic resul t No observ ation record ed. [address] Medical Records [address] [place], [address], 01/01/2025 14:38:11 Result Notes None recorded. Problems Name Problem SNOMED Code Status Onset Date Resolution Date Notes Provider Name and Address Organization Details Recorded Time Juan Daniel hematuria 028229386 Active 2024 Jaqueline Lau MD [address] [place] [address],[address] [place] [address], [phone], [facility] 21:38:06 Benign prostatic hyperplasia with outflow obstruction 540696067 Active 2024 Jaqueline Lau MD [address] [place] [address],[address] [place] [address], [phone], [facility] 17:27:28 Problem Notes None recorded. Procedures Surgical History Date Name Laterality Status Provider Name and Address Organization Details Recorded Time Cystoscopy- male completed Jaqueline Lau MD [address] [place] [address],[address], [place], [address], [facility] 12/31/2024 17:24:09 Bladder Scan completed Emmanuel Reynoso [facility] 12/31/2024 16:31:46 Imaging Results None recorded. [...] Updated DateTime 12/31/2024 157.48 cm 28.3 kg/m2 13969.82 g Ita Welch [facility] 12/31/2024 15:07:32 Social History Question Answer Notes LastModified by Organizat ion Details LastModified Time Tobacco Smoking Status Former Smoker Ita CARL Abdi [facility] 12/31/2024 15:11:02 What Is Your Level Of Caffeine Consumption? Moderate [email or web address] Information not available 12/31/2024 When Did You Quit Smoking? 16+yearssincel astcigarette [email or web address] Information not available 12/31/2024 What Was The Date Of Your Most Recent Tobacco Screening? 12/31/2024 [email or web address] Information not available 12/31/2024 Sex: Unknown Functional Status Question Answer Note LastModified by Organization D etails LastModified Time What is your level of alcohol consumption? None [email or web address] Information not available 12/31/2024 Mental Status None recorded. Family History Relationship Description Onset Age of this Age Resolved Age Notes LastModified by Organization Details LastModified Time Father Malignant neoplasm of colon [email or web address] Not available 15:10:03 Medical History Condition Response Diabetes N Other Y Bleeding Disorder N High Blood Pressure Y Kidney Stones N High Cholesterol N Heart Disease N Cancer N Depression N Lung Disease N Immunizations Vaccine Type Date Status Note Provider Nam e and Address Organization Details Recorded Time Td (adult), 5 Lf tetanus toxoid, preservative free, adsorbed 8 completed Not Available Pending sale to [facility] 12/31/2024 14:40:53 pneumococcal polysaccharide PPV23 0 completed Not Available Pending sale to [facility] 12/31/2024 14:40:53 Tdap 0 completed Not Available Pending sale to [facility] 12/31/2024 14:40:53 Past Encounters Encounter ID Performer Location Encounter Start Date Encounter Closed Date Diagnosis/Indication Diagnosis SNOMED-CT Code Diagnosis ICD10 Code Diagnosis IMO Codes Diagnosis Note [id number] MD YOGI Mcnamara_Tejal [address] [place] [address] 12/31/2024 14:40:08 12/31/2024 17:29:04 Juan Daniel hematuria [id number] R31.0 [id number] - Cystoscopy in the office today demonstrat es: no tumors or lesions, evidence of severe trabeculat ion- PVR post void is 0 cc- Discussed need for urogram to complete workup- RTC to review imaging once complete Benign pro static hyperplasia with outflow obstruction 084948484 N40.1 N13.8 480787 Voiding with low PVR, not significan tly botheredCo ntinue observatio n Health Concerns Section Related Observation LastModified by Organization Detai ls LastModified Time None Recorded Concern Status LastModified by Organization Details LastModified Time None Recorded Payers Encounter Date Sequence Insurance Name Policy Number Policy West Covered Member ID West Member ID Guarantor Name 12/31/2024 1 [facility] (MEDICARE REPLACEMENT/A DVANTAGE - PPO) [id number] Remington Mora [id number] Remington Mora Notes Date Note Type Note Provider Name [...] today with and daughter Jaqueline Lau MD [address] [facility],[address], [place], [address], [facility] 12/31/2024 17:29:00
[2025-01-12] MEDS: 0.9 % SODIUM CHLORIDE 250 ml 250 ML IV (13:20)
--- NOTE | 2025-01-12 13:34 | CRLHL7_ITS ---
For Patients: As a result of the Century Cures Act, medical imaging exams and procedure reports are released immediately into your electronic medical record. You may view this report before your referring provider. If you have questions, please contact your health care provider. INDICATION: Rapid atrial fibrillation TECHNIQUE: Chest radiograph 1 view COMPARISON: 11/28/2024 FINDINGS: The sensitivity and specificity of the exam are moderately limited by the patient`s body habitus. Mediastinum: The mediastinum is normal in appearance. Mild, stable cardiomegaly is noted. Lung: Small lung volumes are present with perihilar interstitial edema, pulmonary vascular congestion and bibasilar atelectasis. Small bilateral pleural effusions are suspected. No pneumothorax is identified. Bone and Soft tissue: Unremarkable for age. IMPRESSIONS: 1. Small lung volumes are present with perihilar interstitial edema, pulmonary vascular congestion and bibasilar atelectasis. Small bilateral pleural effusions are suspected. 2. Mild, stable cardiomegaly is noted. Dictated by Phil Macias MD @ 01/12/2025 2:19:00 PM Dictated by: Phil Macias MD @ 01/12/2025 14:19:04 (Electronically Signed)
[2025-01-12] MEDS: dilTIAZem 5 MG/ML inj 15 MG IVP (13:39)
[2025-01-12 13:45] LABS: Troponin, Point-of-Care* 0.03 ng/ml (0.01-0.04)
[2025-01-12 13:52] LABS: Lactate Sepsis w/Reflex* 1.2 mmol/L (0.5-1.9)
[2025-01-12 14:15] LABS: Albumin* 4.3 g/dL (3.3-5.0); Chloride* 97 mmol/L (96-114); Potassium* 4.2 mmol/L (3.6-5.1); Sodium* 132 mmol/L (135-149)
[2025-01-12 14:18] LABS: Alanine Aminotransferase* 69 U/L (4-50); Alkaline Phosphatase* 91 U/L (40-150); Anion Gap 9 mEq/L (7-15); Aspartate Amino Transferase* 34 U/L (12-35); Bilirubin Direct* 0.3 mg/dL (0.0-0.5); Bilirubin Total* 0.9 mg/dL (0.1-1.5); Blood Urea Nitrogen* 19 mg/dL (7-30); Calcium* 9.2 mg/dL (8.4-10.6); Carbon Dioxide* 26 mmol/L (20-32); Creatinine* 1.2 mg/dL (0.5-1.5); Est. Creatinine Clearance* 39.14; Estimated Glomerular Filt Rate 59 ml/min; Glucose* 134 mg/dL (60-115); Total Protein* 7.6 g/dL (6.0-8.3)
[2025-01-12] MEDS: FUROSEMIDE 10 MG/ML inj 40 MG IVP (14:25)
[2025-01-12 14:30] LABS: Hematocrit* 41.4 % (37.0-53.0); Hemoglobin* 13.7 gm/dL (13.5-17.5); Immature Granulocytes Abs Auto 0.01 K/uL (0.00-0.30); Immature Granulocytes Pct Auto 0.1 %; Lymphocytes Absolute Auto 1.58 K/uL (0.90-2.90); Mean Corpuscular HGB Conc 33 gm/dL (32-36); Mean Corpuscular Hemoglobin 32 pg (26-34); Mean Corpuscular Volume 96 fL (80-100); RDW Coefficient of Variation % 13.4 % (11.5-15.5); Red Blood Count* 4.33 m/uL (4.30-5.90); White Blood Count* 6.82 K/uL (4.50-11.00)
[2025-01-12 14:32] LABS: Slide Review Reflex No
[2025-01-12 14:33] LABS: NT Pro B Type NatriureticPept* 4930 pg/mL (See Note)
[2025-01-12] MEDS: METOPROLOL TARTRATE 1 MG/ML inj 5 MG IVP (14:42)
[2025-01-12 15:06] LABS: TSH With Reflex to FT4* 0.235 uIU/mL (0.270-4.200)
--- NOTE | 2025-01-12 15:07 | ED.GENADULT ---
HPI - General Adult General Chief complaint: Arrhythmia/Palpitations Stated complaint: Shortness of breath Time Seen by Provider: 01/12/25 13:25 History of Present Illness HPI narrative: Patient is an 89-year-old here with his for evaluation of palpitations. I took care of him a little over a month ago, at which time he was diagnosed with atrial fibrillation, RVR, heart failure, he was hospitalized, treated with a combination of dealt, metoprolol, digoxin, started on Eliquis. Had an echo with an EF of 50-55%. His says he had had lunch today and then started to feel poorly, noted that his heart was racing and felt short of breath. He denies chest pain. It turns out, he was given a 30 day supply of 6 different medications at discharge. He ran out of 4 of them 3 days ago. This includes his Eliquis, isn't sure which other medications he ran out of but he was discharged on metoprolol, digoxin, and diltiazem as well as Eliquis. It is quite possible he has been off of all of these medicines for the past several days. They do not do daily weights, he does have swelling in his legs but he says it is better than it was. Related Data Home Medications ?Medication ?Instructions ?Recorded ?Confirmed calcium carbonate (Calcium 500) 500 mg PO DAILY 01/03/23 01/12/25 cholecalciferol (vitamin D3) 125 125 mcg PO DAILY 01/03/23 01/12/25 mcg (5,000 unit) capsule multivitamin 1 tab PO DAILY 01/03/23 01/12/25 Previous Rx's ?Medication ?Instructions ?Recorded apixaban 5 mg tablet (Eliquis) 5 mg PO BID #60 tabs 12/02/24 digoxin 125 mcg (0.125 mg) tablet 125 mcg PO DAILY #30 tabs 12/02/24 diltiazem HCl 120 mg 120 mg PO BID #60 caps 12/02/24 capsule,extended release 24 hr, controlled (DILT-XR) metoprolol tartrate 100 mg tablet 100 mg PO BID #60 tabs 12/02/24 furosemide 20 mg tablet 40 mg (2 x 20 mg) PO DAILY@0800 12/06/24 #120 tabs Allergies Allergy/AdvReac Type Severity Reaction Status Date / Time No Known Drug Allergies Allergy Unverified 12/06/24 11:32 Review of Systems Status of ROS: Reports: 10 or more systems reviewed and unremarkable except as noted in History and below [facility] Medical History Vitiligo ?L80 - Vitiligo (ICD-10) 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 - Spinal stenosis, lumbar region without neurogenic claudication (ICD-10) Atrial fibrillation with rapid ventricular response ?I48.91 - Unspecified atrial fibrillation (ICD-10) Hyponatremia ?E87.1 - Hypo-osmolality and hyponatremia (ICD-10) 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 Remote history of smoking, no current alcohol use. Currently full code as of 11/28/24, family will have a discussion regarding goals of care during stay. What is your current living situation?: I presently have a place to live Problems where you live: no known problems Problems where you live details: no known problems In the past 12 months, utilities in danger of being shut off: no In past 12 months, lack of transportation kept you from medical appts, meetings, work, or getting things needed for daily living: no In the past 12 mos, have been you worried that your food would run out before you had money to buy more?: never true In the past 12 mos, the food you bought just didn't last and you didn't have money to buy more?: never true Highest level of school completed/degree received: 8th grade Smoking Status: Former smoker What tobacco products do you use: cigarettes Smoking quit date/years: >15 years ago Do you use any of these nicotine containing products: None Second hand tobacco smoke exposure: Yes How often do you have a drink containing alcohol: never AUDIT-C Alcohol total score: 0 Non-prescribed substance use: denies use Caffeine: Yes (Coffee) How often does anyone, including family, friends and others, physically hurt you: never How often does anyone, including family, friends and others, insult or talk down to you: never How often does anyone, including family, friends and others, threaten you with harm: never How often does anyone, including family, friends and others, scream or curse at you: never Exam Narrative: Exam Narrative: Vital signs reviewed In general, alert, nontoxic elderly male. Somewhat tachypneic but otherwise not ill appearing Head: Normocephalic, atraumatic. Eyes: Sclera clear. Pupils equal and reactive. ENT: Mucous membranes moist. Neck: Supple without adenopathy. Heart: Regular rate and rhythm without murmur. Lungs: Somewhat decreased, no crackles or wheezes at this time. Abdomen: Soft, nontender to palpation. Extremities: Significant lower extremity edema bilaterally, no erythema or tenderness. Neurologic: Alert, conversant. Speech fluent, face symmetric. Moves all extremities equally. Skin: Warm, dry well perfused. Affect: Normal. Const: Vital Signs, click to edit/add: Vital Signs - 24 hr 01/12/25 13:15 01/12/25 13:25 01/12/25 13:25 Temperature 98.2 F Pulse Rate Pulse Rate [Pulse Oximeter] 175 H Respiratory Rate 32 H Blood Pressure Blood Pressure [Le ft Upper Arm] 145/115 H Pulse Oximetry 92 93 92 Oxygen Delivery Me thod Room Air Nasal Cannula Oxygen Flow Rate 2 01/12/25 13:35 01/12/25 13:46 01/12/25 14:02 Temperature Pulse Rate 166 H 127 H 118 H Pulse Rate [Pulse Oximeter] Respiratory Rate 32 H 32 H 20 Blood Pressure 150/110 H 117/75 118/87 Blood Pressure [Le ft Upper Arm] Pulse Oximetry 93 96 95 Oxygen Delivery Me thod Nasal Cannula Nasal Cannula Nasal Cannula Oxygen Flow Rate 2 4 3 01/12/25 14:15 01/12/25 14:16 01/12/25 14:32 Temperature Pulse Rate 125 H 123 H 133 H Pulse Rate [Pulse Oximeter] Respiratory Rate 18 16 16 Blood Pressure 119/72 126/94 H Blood Pressure [Le ft Upper Arm] Pulse Oximetry 95 95 96 Oxygen Delivery Me thod Nasal Cannula Nasal Cannula Nasal Cannula Oxygen Flow Rate 2 2 1 01/12/25 14:33 01/12/25 14:46 Temperature Pulse Rate 154 H 126 H Pulse Rate [Pulse Oximeter] Respiratory Rate 24 27 H Blood Pressure 130/102 H Blood Pressure [Le ft Upper Arm] Pulse Oximetry 95 95 Oxygen Delivery Me thod Nasal Cannula Nasal Cannula Oxygen Flow Rate 1 1 Course Course ED Course: On arrival patient had an EKG, this shows atrial fibrillation, rapid ventricular response with a rate of 172. Minimally elevated QT corrected, no acute ST segment changes, unremarkable T-waves. He is maintained on the monitor, an IV was established. Prior to my seeing him he was given 250 mL of fluid, I put that in as an order so that nursing would have it, but I ordered Lasix 40 mg IV as I think he is fluid overloaded. I reviewed his records, ordered labs, and gave 15 mg of diltiazem IV with some improvement is rate from 170s to 120s. Diagnostic considerations would include congestive heart failure exacerbation, consider acute coronary syndrome verses due to lack of medications, he appears to be volume overloaded, consider contributing viral or bacterial pneumonia, other viral process, electrolyte abnormality, acute kidney injury, among others. Labs are most notable for an elevated BNP at 4930. His troponin is normal. Other labs reviewed and unremarkable, with the exception of a TSH which is slightly low at 2.235, free T4 is pending. Patient is agreeable to admission today, he will need rate control with IV medications based on his difficulty with rate control last time he was in the hospital. He complained of significant shortness of breath so nursing staff put him on a couple L of oxygen, O2 sats were 92% at that point, he does seem to be improved from a respiratory status with his rate controlled a little better. He remains at risk for worsening heart failure, respiratory distress or collapse, arrhythmia, stroke. Discussed with hospitalist, he will be admitted for inpatient care. Vital Signs Vital signs: Initial Vital Signs Temperature 98.2 F 01/12/25 13:15 Temperature Source Temporal Artery Scan 01/12/25 13:15 Pulse Rate 175 H 01/12/25 13:15 Respiratory Rate 32 H 01/12/25 13:15 Blood Pressure 145/115 H 01/12/25 13:15 Blood Pressure Mean 125 H 01/12/25 13:15 Blood Pressure Position Supine 01/12/25 13:15 Pulse Oximetry 92 01/12/25 13:15 Oxygen Delivery Method Room Air 01/12/25 13:15 Vital Signs Temperature 98.2 F 01/12/25 13:15 Pulse Rate 175 H 01/12/25 13:15 Respiratory Rate 32 H 01/12/25 13:15 Blood Pressure 145/115 H 01/12/25 13:15 Pulse Oximetry 92 01/12/25 13:15 Oxygen Delivery Method Room Air 01/12/25 13:15 Temperature 98.2 F 01/12/25 13:15 Pulse Rate 126 H 01/12/25 14:46 Respiratory Rate 27 H 01/12/25 14:46 Blood Pressure 130/102 H 01/12/25 14:46 Pulse Oximetry 95 01/12/25 14:46 Oxygen Delivery Method Nasal Cannula 01/12/25 14:46 Oxygen Flow Rate 1 01/12/25 14:46 Medications Administered Medications: Generic Name Dose Route Start Last Admin Trade Name Freq PRN Reason Stop Dose Admin Sodium Chloride 250 mls @ 250 mls/hr 01/12/25 15:08 01/12/25 14:20 0.9 % Sodium Chloride 250 Ml IV 01/12/25 16:07 Infused .Q1H ONE Infusion Discontinued Medications Generic Name Dose Route Start Last Admin Trade Name Freq PRN Reason Stop Dose Admin Diltiazem HCl 15 mg 01/12/25 13:34 01/12/25 13:39 Diltiazem 5 Mg/Ml Inj IVP 01/12/25 13:35 15 mg ONCE ONE Administration Furosemide 40 mg 01/12/25 14:12 01/12/25 14:25 Furosemide 10 Mg/Ml Inj IVP 01/12/25 14:13 40 mg ONCE ONE Administration Metoprolol Tartrate 5 mg 01/12/25 14:27 01/12/25 14:42 Metoprolol Tartrate 1 Mg/Ml Inj IVP 01/12/25 14:28 5 mg ONCE ONE Administration Medical Decision Making Lab Data Labs: Lab Results 01/12/25 01/12/25 Range/Units 13:25 13:35 WBC 6.82 (4.50-11.00) K/uL RBC 4.33 (4.30-5.90) m/uL Hgb 13.7 (13.5-17.5) gm/dL Hct 41.4 (37.0-53.0) % MCV 96 (80-100) fL MCH 32 (26-34) pg MCHC 33 (32-36) gm/dL RDW Coeff of Kuldeep 13.4 (11.5-15.5) % Plt Count 173 (140-440) K/uL Neut % (Auto) 64.6 (42.0-72.0) % Lymph % (Auto) 23.2 (20-44) % [place] % (Auto) 10.1 (0.0-11.0) % Eos % (Auto) 1.3 (0.0-7.0) % Baso % (Auto) 0.7 (0.0-3.0) % Neut # (Auto) 4.40 (1.7-7.0) K/uL Lymph # (Auto) 1.58 (0.90-2.90) K/uL [place] # (Auto) 0.70 (0.00-0.90) K/UL Eos # (Auto) 0.09 (0.00-0.50) K/uL Baso # (Auto) 0.05 (0.00-0.30) K/uL Abs Immat Gran (auto) 0.01 (0.00-0.30) K/uL Imm/Tot Granulo (auto) 0.1 % Sodium 132 L (135-149) mmol/L Potassium 4.2 (3.6-5.1) mmol/L Chloride 97 (96-114) mmol/L Carbon Dioxide 26 (20-32) mmol/L Anion Gap 9 (7-15) mEq/L BUN 19 (7-30) mg/dL Creatinine 1.2 (0.5-1.5) mg/dL Estimated Creat Clear 39.14 Estimated GFR 59 ml/min Glucose 134 H (60-115) mg/dL Lactate 1.2 (0.5-1.9) mmol/L Calcium 9.2 (8.4-10.6) mg/dL Magnesium 2.1 (1.5-2.6) mg/dL Total Bilirubin 0.9 (0.1-1.5) mg/dL Direct Bilirubin 0.3 (0.0-0.5) mg/dL AST 34 (12-35) U/L ALT 69 H (4-50) U/L Alkaline Phosphatase 91 (40-150) U/L C-Reactive Protein 0.8 (0.5-1.0) mg/dL NT-Pro-B Natriuret Pep 4930 H (See Note) pg/mL Total Protein 7.6 (6.0-8.3) g/dL Albumin 4.3 (3.3-5.0) g/dL TSH 0.235 L (0.270-4.200) uIU/mL POC Troponin I 0.03 (0.01-0.04) ng/ml Imaging Data Chest x-ray: Attestation: I have reviewed the pertinent imaging results. Radiologist's impression: [place] [address] Diagnostic Imaging Report Patient: Remington Mora MR#: [id number] : 1935 Acct:[id number] Loc: ED Service Date: 01/12/[address]: Ordering Physician: Nichole Harp M.D. Date of Service: 01/12/25 Procedure(s): XR chest 1V portable Accession Number(s): [id number] cc: Nichole Harp M.D.; Dayday Rivera M.D.~ For Patients: As a result of the Cures Act, medical imaging exams and procedure reports are released immediately into your electronic medical record. You may view this report before your referring provider. If you have questions, please contact your health care provider. INDICATION: Rapid atrial fibrillation TECHNIQUE: Chest radiograph 1 view COMPARISON: 11/28/2024 FINDINGS: The sensitivity and specificity of the exam are moderately limited by the patient`s body habitus. Mediastinum: The mediastinum is normal in appearance. Mild, stable cardiomegaly is noted. Lung: Small lung volumes are present with perihilar interstitial edema, pulmonary vascular congestion and bibasilar atelectasis. Small bilateral pleural effusions are suspected. No pneumothorax is identified. Bone and Soft tissue: Unremarkable for age. IMPRESSIONS: 1. Small lung volumes are present with perihilar interstitial edema, pulmonary vascular congestion and bibasilar atelectasis. Small bilateral pleural effusions are suspected. 2. Mild, stable cardiomegaly is noted. Dictated by Phil Macias MD @ 01/12/2025 2:19:00 PM Dictated by: Phil Macias MD @ 01/12/2025 14:19:04 Discharge Plan Discharge Clinical Impression: Atrial fibrillation with rapid ventricular response, Congestive heart failure Patient Disposition: Admitted As Inpatient Condition: Stable
--- NOTE | 2025-01-12 15:19 | PM.IMHP1 ---
Assessment and Plan Assessment and plan (1) (HFpEF) heart failure with preserved ejection fraction: Problem comment: - with evidence of exacerbation on admission 01/12 (weight gain of 3.45kg since discharge in November, tachypnea, BLE edema, elevated BNP) - admit for IV diuresis, potassium supplementation, close monitoring of Is/Os, electrolytes - restart BB Status: Acute (2) Atrial fibrillation with rapid ventricular response: Problem comment: - restart home medications (does not need a re-load of Digoxin) for rate control, prn options available - consider diltiazem gtt if no improvement on previous regimen Status: Acute (3) Hyponatremia: Problem comment: - mild, Na of 132, presumably 2/2 CHF (during previous CHF hospitalization, noted similar presentation that improved with diuresis) Status: Acute (4) Abnormal TSH: Problem comment: - TSH suppressed on 01/12/25 with normal T4, normal TSH and T4 Status: Acute Plan - per above - requires inpatient management given clinical CHF exacerbation, a fib with RVR with HR >170 upon presentation, need for IV antiarrythmics and IV diuresis, expect 2 midnight stay for management of these acute issues - and family updated bedside, questions answered Hospitalist- H&P: HPI History of Present Illness Date Seen: 01/12/25 Chief complaint: Shortness of breath Narrative: Remington Mora is a 89 year old male who presented to the ER this afternoon for feeling poorly. notes that they were eating earlier today and he looked like he did not feel well; breathing heavily and felt off. He endorsed some shortness of breath, no chest pain. Over the past few days, has had notable bilateral lower extremity edema, symmetric. Hospitalized here from 11/28-12/02/24 for new diagnosis of atrial fibrillation and HFpEF after many years of not seeing a PCP regularly. He was discharged home on 12/02/2024 with a 30 day supply of the following medications: - 20 mg of Lasix daily + 20meQ of Potassium - diltiazem XR 120 mg BID - digoxin 125 mcg daily - metoprolol 100 mg BID - Eliquis 5 mg BID notes that they stopped taking the medications after these bottles ran out; was not aware that these were to be taken chronically, did not ask PCP for refills during hospital follow-up. He has been out of most of his medications since (4 days ago; she notes that they have a few pills left of two medications and thinks they may have missed some doses in the previous week). ER Course and Findings: - presented with dyspnea, tachypnea (RR as high as 32), O2 saturation of 92% on RA, initiated supplemental oxygen given symptomatic state - EKG consistent with a fib/RVR; HR as high as 175 - CXR c/w small bilateral pleural effusions and pulmonary congestion - Received 40mg of IV Furosemide, 15mg of IV Diltiazem, and 5mg of IV Metoprolol Upon arrival to the floor, Remington's HR is between 118-130s. He denies chest pain or any other concerns for me this afternoon. Review of Systems Status of ROS: Reports: 10 or more systems reviewed and unremarkable except as noted in History and below Medical Decision Making Medical Decision Making Code Status: Full Has patient completed a Health Care Directive: No During This Stay, Who Would You Like To Make Decisions For You In The Event You Are Unable To Make Them For Yourself?: [facility] Medical History (Updated 01/12/25 @ 16:26 by Darby Nazario MD) Hyponatremia ?E87.1 - Hypo-osmolality and hyponatremia (ICD-10) (HFpEF) heart failure with preserved ejection fraction ?I50.30 - Unspecified diastolic (congestive) heart failure (ICD-10) Vitiligo ?L80 - Vitiligo (ICD-10) 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 - Spinal stenosis, lumbar region without neurogenic claudication (ICD-10) Atrial fibrillation with rapid ventricular response ?I48.91 - Unspecified atrial fibrillation (ICD-10) 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 Remote history of smoking, no current alcohol use. Full Code. What is your current living situation?: I presently have a place to live Problems where you live: no known problems Problems where you live details: no known problems In the past 12 months, utilities in danger of being shut off: no In past 12 months, lack of transportation kept you from medical appts, meetings, work, or getting things needed for daily living: no In the past 12 mos, have been you worried that your food would run out before you had money to buy more?: never true In the past 12 mos, the food you bought just didn't last and you didn't have money to buy more?: never true Highest level of school completed/degree received: 8th grade Smoking Status: Former smoker What tobacco products do you use: cigarettes Smoking quit date/years: >15 years ago Do you use any of these nicotine containing products: None Second hand tobacco smoke exposure: Yes How often do you have a drink containing alcohol: never AUDIT-C Alcohol total score: 0 Non-prescribed substance use: denies use Caffeine: Yes (Coffee) How often does anyone, including family, friends and others, physically hurt you: never How often does anyone, including family, friends and others, insult or talk down to you: never How often does anyone, including family, friends and others, threaten you with harm: never How often does anyone, including family, friends and others, scream or curse at you: never service: No Meds Home Medications and Allergies Home Medications ?Medication ?Instructions ?Recorded ?Confirmed ?Type calcium carbonate (Calcium 500) 500 mg PO DAILY 01/03/23 01/12/25 History cholecalciferol (vitamin D3) 125 125 mcg PO DAILY 01/03/23 01/12/25 History mcg (5,000 unit) capsule multivitamin 1 tab PO DAILY 01/03/23 01/12/25 History apixaban 5 mg tablet (Eliquis) 5 mg PO BID #60 tabs 12/02/24 01/12/25 Rx digoxin 125 mcg (0.125 mg) tablet 125 mcg PO DAILY #30 tabs 12/02/24 01/12/25 Rx diltiazem HCl 120 mg 120 mg PO BID #60 caps 12/02/24 01/12/25 Rx capsule,extended release 24 hr, controlled (DILT-XR) metoprolol tartrate 100 mg tablet 100 mg PO BID #60 tabs 12/02/24 01/12/25 Rx furosemide 20 mg tablet 40 mg (2 x 20 mg) PO DAILY@0800 12/06/24 01/12/25 Rx #120 tabs Allergies Allergy/AdvReac Type Severity Reaction Status Date / Time No Known Drug Allergies Allergy Unverified 12/06/24 11:32 Exam Narrative: Exam Narrative: GEN: Alert and oriented, hard of hearing, sitting up at side of bed and nontoxic HEENT: Normal external ears, EOMIs bilaterally, no scleral icterus CV: Irregular rhythm, rate 110s during my exam R: No wheezing, fine bibasilar crackles Ext: 3+ LE edema bilaterally, symmetric Skin: No concerning skin lesions or rashes on exposed skin Neuro: No focal deficits, no resting tremor Psych: Appropriate Const: Vital Signs, click to edit/add: Vital Signs - 24 hr 01/12/25 13:15 01/12/25 13:25 01/12/25 13:25 Temperature 98.2 F Pulse Rate Pulse Rate [Pulse Oximeter] 175 H Respiratory Rate 32 H Blood Pressure Blood Pressure [Le ft Upper Arm] 145/115 H Pulse Oximetry 92 93 92 Oxygen Delivery Me thod Room Air Nasal Cannula Oxygen Flow Rate 2 01/12/25 13:35 01/12/25 13:46 01/12/25 14:02 Temperature Pulse Rate 166 H 127 H 118 H Pulse Rate [Pulse Oximeter] Respiratory Rate 32 H 32 H 20 Blood Pressure 150/110 H 117/75 118/87 Blood Pressure [Le ft Upper Arm] Pulse Oximetry 93 96 95 Oxygen Delivery Me thod Nasal Cannula Nasal Cannula Nasal Cannula Oxygen Flow Rate 2 4 3 01/12/25 14:15 01/12/25 14:16 01/12/25 14:32 Temperature Pulse Rate 125 H 123 H 133 H Pulse Rate [Pulse Oximeter] Respiratory Rate 18 16 16 Blood Pressure 119/72 126/94 H Blood Pressure [Le ft Upper Arm] Pulse Oximetry 95 95 96 Oxygen Delivery Me thod Nasal Cannula Nasal Cannula Nasal Cannula Oxygen Flow Rate 2 2 1 01/12/25 14:33 01/12/25 14:46 Temperature Pulse Rate 154 H 126 H Pulse Rate [Pulse Oximeter] Respiratory Rate 24 27 H Blood Pressure 130/102 H Blood Pressure [Le ft Upper Arm] Pulse Oximetry 95 95 Oxygen Delivery Me thod Nasal Cannula Nasal Cannula Oxygen Flow Rate 1 1 Hospitalist - H&P: Result Labs Labs: Short CBC 01/12/25 Range/Units 13:25 WBC 6.82 (4.50-11.00) K/uL Hgb 13.7 (13.5-17.5) gm/dL Hct 41.4 (37.0-53.0) % Plt Count 173 (140-440) K/uL BMP 01/12/25 13:25 Sodium 132 L Potassium 4.2 Chloride 97 Carbon Dioxide 26 BUN 19 Creatinine 1.2 Glucose 134 H Calcium 9.2 Liver Function 01/12/25 Range/Units 13:25 Total Bilirubin 0.9 (0.1-1.5) mg/dL Direct Bilirubin 0.3 (0.0-0.5) mg/dL AST 34 (12-35) U/L ALT 69 H (4-50) U/L Alkaline Phosphatase 91 (40-150) U/L Albumin 4.3 (3.3-5.0) g/dL
[2025-01-12 15:43] LABS: Free T4 Free Thyroxine* 1.19 ng/dL (0.70-1.85)
[2025-01-12] MEDS: DIGOXIN 125 MCG TABLET PO (16:02)
[2025-01-12] MEDS: dilTIAZem 5 MG/ML inj 19 MG IVP (16:49)
[2025-01-12] MEDS: MAGNESIUM SULF 1 G/100 ML 1 GM/100 ML PIGGYBACK IVPB (16:52)
--- NOTE | 2025-01-12 18:14 | PC.NURSE ---
End of shift. pt has been pleasant. he is alert x4, no pain. tele shows Afib with HR 120-160. SL is patent. he got IV push dilt and mag. he is up ab raffy. he is eating and drinking and voiding. he likes coffee.
--- NOTE | 2025-01-12 19:10 | PM.EN ---
Chart Event Note Chart Event Note: Remington remains in AFib RVR despite another dose of IV diltiazem and IV magnesium. He has also received his home digoxin dose this afternoon. We will move him to CCU status and initiate diltiazem drip (EF 55% on TTE last month).
[2025-01-12] MEDS: FUROSEMIDE 10 MG/ML inj 20 MG IVP (20:03)
[2025-01-12] MEDS: POTASSIUM BICARB 25 MEQ EFFERVESCENT TAB PO (20:04)
[2025-01-12] MEDS: SODIUM CHLORIDE 0.9 % (FLUSH) 10 ML SYRINGE 5 ML IVF (20:27)
[2025-01-12] MEDS: dilTIAZem HCL 125 MG in 0.9 % SODIUM CHLORIDE 100 ml 100 ML IVPB (20:40)
[2025-01-12] MEDS: APIXABAN 5 MG TABLET PO (21:10)
[2025-01-12] MEDS: METOPROLOL TARTRATE 100 MG TABLET PO (21:11)
[2025-01-13] VITALS (45 sets, daily range): BP systolic 91–134; BP diastolic 60–99; PULSE 74–141; RESP 16–22; TEMP 36.2–36.8; O2SAT 92–97
--- NOTE | 2025-01-13 06:31 | PC.NURSE ---
End of shift note [id number]: Pt noted to be A&O to person, place and time though intermittent forgetfulness noted: pt requiring frequent reminders of importance of adhering to med regimen and why he has been admitted. Education provided to patient and family as pt was asking, I can leave tonight, right? Pt educated regarding importance of staying to regulate heart rate and was agreeable to this plan. Tele in place throughout the shift with A fib with RVR at start of shift with rhythm progressing to A fib with NVR. Pt has been afebrile throughout the shift and on RA. He denies pain when asked. Pt transferring/ambulating with SBA using gait belt and IV pole. Pt?s daughter spent the night at bedside. Pt has been continent of bladder throughout the shift. Diltiazem drip started last evening per order and titrated per protocol. Pt has two IVs in place which are patent. MD advised to maintain MAP >65. Pt tolerating regular diet. Bed alarm on for safety and call light within reach.
[2025-01-13 07:06] LABS: Hematocrit* 38.6 % (37.0-53.0); Hemoglobin* 12.8 gm/dL (13.5-17.5); Immature Granulocytes Abs Auto 0.01 K/uL (0.00-0.30); Immature Granulocytes Pct Auto 0.2 %; Lymphocytes Absolute Auto 1.23 K/uL (0.90-2.90); Mean Corpuscular HGB Conc 33 gm/dL (32-36); Mean Corpuscular Hemoglobin 31 pg (26-34); Mean Corpuscular Volume 95 fL (80-100); RDW Coefficient of Variation % 13.3 % (11.5-15.5); Red Blood Count* 4.08 m/uL (4.30-5.90); White Blood Count* 5.34 K/uL (4.50-11.00)
[2025-01-13 07:14] LABS: Albumin* 3.8 g/dL (3.3-5.0); Chloride* 97 mmol/L (96-114); Potassium* 3.8 mmol/L (3.6-5.1); Sodium* 132 mmol/L (135-149)
[2025-01-13 07:17] LABS: Alanine Aminotransferase* 53 U/L (4-50); Alkaline Phosphatase* 76 U/L (40-150); Anion Gap 7 mEq/L (7-15); Aspartate Amino Transferase* 28 U/L (12-35); Bilirubin Total* 1.0 mg/dL (0.1-1.5); Blood Urea Nitrogen* 20 mg/dL (7-30); Calcium* 8.8 mg/dL (8.4-10.6); Carbon Dioxide* 28 mmol/L (20-32); Creatinine* 1.1 mg/dL (0.5-1.5); Est. Creatinine Clearance* 42.69; Estimated Glomerular Filt Rate 65 ml/min; Glucose* 102 mg/dL (60-115); Total Protein* 6.6 g/dL (6.0-8.3)
[2025-01-13] MEDS: METOPROLOL TARTRATE 100 MG TABLET PO ×2 (09:51→20:12)
[2025-01-13] MEDS: DIGOXIN 125 MCG TABLET PO (09:52)
[2025-01-13] MEDS: APIXABAN 5 MG TABLET PO ×2 (09:52→20:12)
[2025-01-13] MEDS: SODIUM CHLORIDE 0.9 % (FLUSH) 10 ML SYRINGE 5 ML IVF ×4 (09:53→20:12)
[2025-01-13] MEDS: dilTIAZem HCL 125 MG in 0.9 % SODIUM CHLORIDE 100 ml 100 ML IVPB (10:52)
--- NOTE | 2025-01-13 11:33 | PC.SOCIAL ---
Discharge planning: structural metal worker completed the Initial Psychosocial Assessment with the pt and his with the below answers... Initial Psychosocial Assessment: 1.? Assessment completed with: Patient, Spouse, Child, Friend, Other: Patient and his Jane. 2.? Pt lives at address and phone number on face sheet? Own home; facility , Other: Yes. Address is correct. 3.?Insurance information? on face sheet is correct? Yes. Correct. 4.?Contacts? on face sheet are correct? Yes. Correct. DaughterMinda's last name is Pumper not Rezac. 5.? Does pt have a Healthcare Directive, POLST or Guardian? Yes. 6.? Who is the pt?s main source/sources of emotional/physical support? , son and two daughters. 7.? Prior to admission did pt need assistance? Yes/No Yes. 8.? Who provided and what was the assistance needed? Pt's and daughter, Minda, set-up pt's weekly medications for him in a medication/pill box. Pt's has to physically give him the medications and then he will take them, but he will not initiate taking the medications on his own from the pill box. Pt's stated there were two mornings last week that she forgot to give him his medication in the morning due to administrative analyst doctor's appointments that they had. 9.? Was Home Health being provided, by what agency? No. 10. Does pt use/have medical equipment at home already? What? No. 11. Will there be a need for additional assistance at discharge and is this available in previous setting? Unknown. 12. If pt needs to go to a higher level of care, are they open to this and do they have facilities they are interested in? Unknown. 13. How would pt plan to transport at discharge? Daughter. 14. Is there anyone pt would like psychosocial rehabilitation counselor to contact to discuss discharge plans? and daughters. Social work to follow-up as needed.
--- NOTE | 2025-01-13 13:31 | W.PC.NUTR.NO ---
Nutrition Progress Note Progress Note Progress Note: RDN with MD consult for Heart Healthy Education. Patient admitted for atrial fib. Current weight 72.711kg; height 167.64cm; BMI 25.9 kg/m2. No significant weight change since last visit in November. Current diet is Regular. Meal intakes at 50%+. Patient [place] with [place] farm with his . RDN visited with patient whom does not recall receiving diet education on heart healthy diet at last hospitalization. He declined diet education but did accept educational materials. Provided education information on a heart healthy diet. Contact information provided. Encouraged them to contact with any questions as needed. Continue to monitor.
--- NOTE | 2025-01-13 14:44 | PM.IMPN1 ---
Assessment and Plan Assessment and plan (1) (HFpEF) heart failure with preserved ejection fraction: Problem comment: - with evidence of exacerbation on admission 01/12 (weight gain of 3.45kg since discharge in November, tachypnea, BLE edema, elevated BNP) - admit for IV diuresis, potassium supplementation, close monitoring of Is/Os, electrolytes - restart BB - 01/13 diuresing well. Cr stable. Will give another dose of furosemide this afternoon. Status: Acute (2) Atrial fibrillation with rapid ventricular response: Problem comment: - restart home medications (does not need a re-load of Digoxin) for rate control, prn options available - consider diltiazem gtt if no improvement on previous regimen - 01/13 Got most home meds this morning with good results. Weaning dilt drip, restart home oral diltiazem dosing. Status: Acute (3) Hyponatremia: Problem comment: - mild, Na of 132, presumably 2/2 CHF (during previous CHF hospitalization, noted similar presentation that improved with diuresis) - 01/13 Na stable at 132 Status: Acute (4) Abnormal TSH: Problem comment: - TSH suppressed on 01/12/25 with normal T4, normal TSH and T4, recheck as outpatient Status: Acute Plan - per above - requires inpatient management given clinical CHF exacerbation, a fib with RVR with HR >170 upon presentation, need for IV antiarrythmics and IV diuresis, expect 2 midnight stay for management of these acute issues - and family updated bedside, questions answered Subjective Time Seen by Provider: 09:00 Date Seen: 01/13/25 Interval history: Doroteo denies CP or SOB. His daughter states he looks better today and his ankles are less swollen. Exam Narrative: Exam Narrative: General: No acute distress. Awake, alert, oriented to self. Very hard of hearing. No pallor. No jaundice. Oropharynx: Clear. Mucous membranes moist. Cardiovascular: Regular rate and rhythm. No murmurs, gallops, or rubs. Respiratory: Clear to auscultation bilaterally. No wheezes or crackles. Abdomen: Bowel sounds present. Soft, nondistended, nontender. Extremities: 2+ bilateral lower extremity pitting edema. Const: Vital Signs, click to edit/add: Vital Signs - 24 hr 01/12/25 14:46 01/12/25 15:24 01/12/25 15:33 Temperature 97.8 F Pulse Rate 126 H Pulse Rate [Right Radial] 119 H Respiratory Rate 27 H 22 22 Blood Pressure 130/102 H Blood Pressure [Le ft Arm] 121/91 H Pulse Oximetry 95 94 94 Oxygen Delivery Me thod Nasal Cannula Room Air Room Air Oxygen Flow Rate 1 01/12/25 16:02 01/12/25 16:18 01/12/25 19:00 Temperature Pulse Rate 138 H 133 H Pulse Rate [Right Radial] 133 H Respiratory Rate 20 Blood Pressure Blood Pressure [Le ft Arm] Pulse Oximetry Oxygen Delivery Me thod Oxygen Flow Rate 01/12/25 19:34 01/12/25 20:00 01/12/25 21:00 Temperature 98.1 F Pulse Rate 136 H Pulse Rate [Right Radial] 133 H 147 H Respiratory Rate 20 Blood Pressure Blood Pressure [Le ft Arm] 132/98 H 110/87 Pulse Oximetry 96 Oxygen Delivery Me thod Room Air Oxygen Flow Rate 01/12/25 21:30 01/12/25 21:45 01/12/25 22:00 Temperature 97.9 F Pulse Rate Pulse Rate [Right Radial] 133 H 133 H 109 H Respiratory Rate 18 Blood Pressure Blood Pressure [Le ft Arm] 111/54 L 102/80 101/82 Pulse Oximetry 93 Oxygen Delivery Me thod Room Air Oxygen Flow Rate 01/12/25 22:15 01/12/25 22:30 01/12/25 22:45 Temperature Pulse Rate Pulse Rate [Right Radial] 83 87 78 Respiratory Rate Blood Pressure Blood Pressure [Le ft Arm] 90/71 99/81 94/62 Pulse Oximetry Oxygen Delivery Me thod Oxygen Flow Rate 01/12/25 22:48 01/12/25 23:00 01/12/25 23:00 Temperature Pulse Rate Pulse Rate [Right Radial] 83 82 Respiratory Rate 20 22 Blood Pressure Blood Pressure [Le ft Arm] 99/74 Pulse Oximetry 96 Oxygen Delivery Me thod Room Air Oxygen Flow Rate 01/12/25 23:05 01/12/25 23:15 01/12/25 23:33 Temperature Pulse Rate 69 Pulse Rate [Right Radial] 73 67 Respiratory Rate Blood Pressure Blood Pressure [Le ft Arm] 90/65 86/66 L Pulse Oximetry Oxygen Delivery Me thod Oxygen Flow Rate 01/12/25 23:45 01/13/25 00:00 01/13/25 00:15 Temperature 97.5 F L Pulse Rate Pulse Rate [Right Radial] 78 82 91 Respiratory Rate 22 Blood Pressure Blood Pressure [Le ft Arm] 100/78 107/68 99/75 Pulse Oximetry 95 Oxygen Delivery Me thod Room Air Oxygen Flow Rate 01/13/25 00:30 01/13/25 00:45 01/13/25 01:00 Temperature Pulse Rate Pulse Rate [Right Radial] 82 87 80 Respiratory Rate Blood Pressure Blood Pressure [Le ft Arm] 103/73 92/60 92/73 Pulse Oximetry Oxygen Delivery Me thod Oxygen Flow Rate 01/13/25 01:15 01/13/25 01:30 01/13/25 01:45 Temperature Pulse Rate Pulse Rate [Right Radial] 95 90 95 Respiratory Rate Blood Pressure Blood Pressure [Le ft Arm] 107/76 103/80 91/74 Pulse Oximetry Oxygen Delivery Me thod Oxygen Flow Rate 01/13/25 02:00 01/13/25 02:15 01/13/25 02:32 Temperature 97.8 F Pulse Rate Pulse Rate [Right Radial] 87 94 94 Respiratory Rate 18 Blood Pressure Blood Pressure [Le ft Arm] 102/74 103/76 91/68 Pulse Oximetry 92 Oxygen Delivery Me thod Room Air Oxygen Flow Rate 01/13/25 02:45 01/13/25 03:00 01/13/25 03:00 Temperature Pulse Rate Pulse Rate [Right Radial] 92 95 87 Respiratory Rate 18 Blood Pressure Blood Pressure [Le ft Arm] 107/79 114/91 H Pulse Oximetry Oxygen Delivery Me thod Oxygen Flow Rate 01/13/25 03:05 01/13/25 03:15 01/13/25 03:30 Temperature Pulse Rate 94 Pulse Rate [Right Radial] 95 90 Respiratory Rate Blood Pressure Blood Pressure [Le ft Arm] 107/74 108/83 Pulse Oximetry Oxygen Delivery Me thod Oxygen Flow Rate 01/13/25 03:45 01/13/25 04:00 01/13/25 04:15 Temperature 97.8 F Pulse Rate Pulse Rate [Right Radial] 101 H 87 92 Respiratory Rate 18 Blood Pressure Blood Pressure [Le ft Arm] 104/79 101/77 122/87 Pulse Oximetry 94 Oxygen Delivery Me thod Room Air Oxygen Flow Rate 01/13/25 04:26 01/13/25 04:30 01/13/25 04:50 Temperature Pulse Rate Pulse Rate [Right Radial] 116 H 118 H 107 H Respiratory Rate Blood Pressure Blood Pressure [Le ft Arm] 116/84 112/92 H Pulse Oximetry Oxygen Delivery Me thod Oxygen Flow Rate 01/13/25 05:00 01/13/25 05:15 01/13/25 05:30 Temperature Pulse Rate Pulse Rate [Right Radial] 103 H 100 99 Respiratory Rate Blood Pressure Blood Pressure [Le ft Arm] 110/89 115/76 112/93 H Pulse Oximetry Oxygen Delivery Me thod Oxygen Flow Rate 01/13/25 05:45 01/13/25 06:00 01/13/25 06:15 Temperature 97.2 F L Pulse Rate Pulse Rate [Right Radial] 95 81 91 Respiratory Rate 18 Blood Pressure Blood Pressure [Le ft Arm] 101/81 114/72 104/84 Pulse Oximetry 93 Oxygen Delivery Me thod Room Air Oxygen Flow Rate 01/13/25 06:45 01/13/25 07:00 01/13/25 07:00 Temperature Pulse Rate Pulse Rate [Right Radial] 91 109 H Respiratory Rate 20 Blood Pressure Blood Pressure [Le ft Arm] 120/94 H Pulse Oximetry 94 Oxygen Delivery Me thod Room Air Oxygen Flow Rate 01/13/25 07:02 01/13/25 08:00 01/13/25 09:52 Temperature Pulse Rate 101 H 112 H Pulse Rate [Right Radial] 109 H Respiratory Rate 20 Blood Pressure Blood Pressure [Le ft Arm] 115/84 Pulse Oximetry 94 Oxygen Delivery Me thod Room Air Oxygen Flow Rate 01/13/25 10:00 01/13/25 11:21 01/13/25 11:24 Temperature 98.0 F Pulse Rate 80 Pulse Rate [Right Radial] 109 H 79 Respiratory Rate 20 Blood Pressure Blood Pressure [Le ft Arm] 91/66 Pulse Oximetry 93 Oxygen Delivery Me thod Room Air Oxygen Flow Rate 01/13/25 11:37 01/13/25 14:00 Temperature 97.7 F 97.6 F Pulse Rate Pulse Rate [Right Radial] 74 96 Respiratory Rate 20 20 Blood Pressure Blood Pressure [Le ft Arm] 100/67 108/67 Pulse Oximetry 95 94 Oxygen Delivery Me thod Room Air Room Air Oxygen Flow Rate Labs Labs: Laboratory Results - last 24 hr 01/12/25 01/13/25 13:25 06:35 WBC 5.34 RBC 4.08 L Hgb 12.8 L Hct 38.6 MCV 95 MCH 31 MCHC 33 RDW Coeff of Kul[place] 13.3 Plt Count 156 Neut % (Auto) 61.9 Lymph % (Auto) 23.0 [place] % (Auto) 12.0 H Eos % (Auto) 2.2 Baso % (Auto) 0.7 Neut # (Auto) 3.30 Lymph # (Auto) 1.23 [place] # (Auto) 0.60 Eos # (Auto) 0.12 Baso # (Auto) 0.04 Abs Immat Gran (auto) 0.01 Imm/Tot Granulo (auto) 0.2 Sodium 132 L Potassium 3.8 Chloride 97 Carbon Dioxide 28 Anion Gap 7 BUN 20 Creatinine 1.1 Estimated Creat Clear 42.69 Estimated GFR 65 Glucose 102 Calcium 8.8 Magnesium 2.2 Total Bilirubin 1.0 AST 28 ALT 53 H Alkaline Phosphatase 76 Total Protein 6.6 Albumin 3.8 TSH 0.235 L Free T4 1.19
[2025-01-13 15:42] LABS: Slide Review Reflex No
[2025-01-13] MEDS: FUROSEMIDE 10 MG/ML inj 40 MG IVP (16:07)
[2025-01-13] MEDS: METOPROLOL TARTRATE 1 MG/ML inj 5 MG IVP ×2 (18:01→23:31)
--- NOTE | 2025-01-13 19:44 | PC.NURSE ---
End of shift [id number] ? Pt alert, oriented to self, place, and time. Up with standby assistance. Tolerating RA and regular diet/fluids. Pt denies pain, SOB, dizziness with ambulation. RN provided education r/t medication to pt and family frequently during shift. All verbalized understanding. Family at bedside, pt appears to be resting comfortably in bed at end of shift with call light within reach. ?
[2025-01-14] VITALS (7 sets, daily range): BP systolic 91–117; BP diastolic 52–93; PULSE 83–124; RESP 18–20; TEMP 36.4–36.8; O2SAT 93–94
[2025-01-14] MEDS: METOPROLOL TARTRATE 1 MG/ML inj 5 MG IVP ×2 (05:17→10:20)
--- NOTE | 2025-01-14 06:29 | PC.NURSE ---
End of shift report [id number]: VSS. PRN IV metoprolol given at 2331 and 0517 for increased heart rate above 110 for >15 mins per MD order. Afebrile. Denies pain. Pt is ANIAK. Pt moves SBA. At the beginning of the shift handbook writer noted that daughter brought the patient to the bathroom without utilizing the hat. Zoning Engineer educated on the importance of utilizing the hat in the toilet to measure strict I and Os, daughter was receptive to the teaching. Pts daughter was at the bedside overnight. Call light within reach.?
[2025-01-14] MEDS: FUROSEMIDE 40 MG TABLET PO (08:50)
[2025-01-14] MEDS: APIXABAN 5 MG TABLET PO ×2 (08:51→21:38)
[2025-01-14] MEDS: DIGOXIN 125 MCG TABLET PO (08:51)
[2025-01-14] MEDS: METOPROLOL TARTRATE 100 MG TABLET PO ×2 (08:52→21:38)
[2025-01-14 09:00] LABS: Hematocrit* 42.2 % (37.0-53.0); Hemoglobin* 14.1 gm/dL (13.5-17.5); Immature Granulocytes Abs Auto 0.01 K/uL (0.00-0.30); Immature Granulocytes Pct Auto 0.1 %; Lymphocytes Absolute Auto 2.26 K/uL (0.90-2.90); Mean Corpuscular HGB Conc 33 gm/dL (32-36); Mean Corpuscular Hemoglobin 32 pg (26-34); Mean Corpuscular Volume 95 fL (80-100); RDW Coefficient of Variation % 13.4 % (11.5-15.5); Red Blood Count* 4.45 m/uL (4.30-5.90); White Blood Count* 7.94 K/uL (4.50-11.00)
[2025-01-14 09:01] LABS: Slide Review Reflex No
[2025-01-14 09:07] LABS: Chloride* 101 mmol/L (96-114); Potassium* 4.0 mmol/L (3.6-5.1); Sodium* 138 mmol/L (135-149)
[2025-01-14 09:10] LABS: Anion Gap 9 mEq/L (7-15); Blood Urea Nitrogen* 21 mg/dL (7-30); Carbon Dioxide* 28 mmol/L (20-32); Creatinine* 1.1 mg/dL (0.5-1.5); Est. Creatinine Clearance* 42.69; Estimated Glomerular Filt Rate 65 ml/min
[2025-01-14 09:11] LABS: Calcium* 9.0 mg/dL (8.4-10.6); Glucose* 112 mg/dL (60-115)
[2025-01-14] MEDS: SODIUM CHLORIDE 0.9 % (FLUSH) 10 ML SYRINGE 5 ML IVF ×2 (09:53→21:39)
--- NOTE | 2025-01-14 13:33 | P.IMPN_ITS ---
Assessment and Plan Assessment and plan (1) (HFpEF) heart failure with preserved ejection fraction: Problem comment: - with evidence of exacerbation on admission 01/12 (weight gain of 3.45kg since discharge in November, tachypnea, BLE edema, elevated BNP) - admit for IV diuresis, potassium supplementation, close monitoring of Is/Os, electrolytes - restart BB - 01/13 diuresing well. Cr stable. Will give another dose of furosemide this afternoon. - 01/14 wt down 2.7kg from admission. 800cc out over 24 hours. Persistent LE edema. Cr stable. Continue to work on rate control and give another dose of lasix this afternoon. Change diuresis to IV. Try restful night vitals tonight to prevent startle and elevated HR in the early am. Status: Acute (2) Atrial fibrillation with rapid ventricular response: Problem comment: - restart home medications (does not need a re-load of Digoxin) for rate control, prn options available - consider diltiazem gtt if no improvement on previous regimen - 01/13 Got most home meds this morning with good results. Weaning dilt drip, restart home oral diltiazem dosing. - 01/14 Off dilt drip. HR was good yesterday pm, then elevated this morning with startle for vitals. Give IV metoprolol IV this am. Continue home meds. Status: Acute (3) Hyponatremia: Problem comment: - mild, Na of 132, presumably 2/2 CHF (during previous CHF hospitalization, noted similar presentation that improved with diuresis) - 01/13 Na stable at 132 - 01/14 RESOLVED Status: Acute (4) Abnormal TSH: Problem comment: - TSH suppressed on 01/12/25 with normal T4, normal TSH and T4, recheck as outpatient Status: Acute Plan - per above - requires inpatient management given clinical CHF exacerbation, a fib with RVR with HR >170 upon presentation, need for IV antiarrythmics and IV diuresis, not yet rate controlled, expect at least one more midnight. - family updated bedside, questions answered Total Time Spent Total Time Spent: Today I spent 50minutes seeing the patient, reviewing [facility] and [facility] notes/diagnostics/labs, discussing the care plan with our care team that includes social work, PT/OT, pharmacy, RT, residential and documenting my impressions and plan in the medical record. Subjective Time Seen by Provider: :00 Date Seen: 01/14/25 Interval history: Doroteo denies complaints. He denies CP or SOB. His daughter and granddaughter are in the room and ask about his lower extremity edema. His granddaughter works at a [employer] and wanted to know what medicines he was discharged on last time. I pulled up the discharge summary from November and we talked through them. The daughter and granddaughter were then talking about possibly trying to be more involved once Doroteo is discharged to ensure that he is getting his medications as prescribed and that they go to get refills. They tell me that their parents have never really been on chronic medications before, so they did not realize that they would need to go and get refills. His daughter also told me that he gets startled in the middle of the night when the nurses come in for vitals; this drove his HR up and then it was difficult for him to settle down. Exam Narrative: Exam Narrative: General: No acute distress. Awake, alert, oriented to self. Very hard of hearing. No pallor. No jaundice. Oropharynx: Clear. Mucous membranes moist. Cardiovascular: Regular rate and rhythm. No murmurs, gallops, or rubs. Respiratory: Clear to auscultation bilaterally. No wheezes or crackles. Abdomen: Bowel sounds present. Soft, nondistended, nontender. Extremities: 2+ bilateral lower extremity pitting edema, unchanged. Const: Vital Signs, click to edit/add: Vital Signs - 24 hr 01/13/25 14:00 01/13/25 15:50 01/13/25 15:55 Temperature 97.6 F Pulse Rate 91 Pulse Rate [Pulse Oximeter] Pulse Rate [Right Radial] 96 Respiratory Rate 20 18 Blood Pressure [Le ft Arm] 108/67 Pulse Oximetry 94 94 Oxygen Delivery Me thod Room Air Room Air 01/13/25 16:31 01/13/25 18:25 01/13/25 19:00 Temperature 97.3 F L 97.7 F Pulse Rate 141 H Pulse Rate [Pulse Oximeter] 95 124 H Pulse Rate [Right Radial] Respiratory Rate 16 20 Blood Pressure [Le ft Arm] 122/80 110/71 Pulse Oximetry 95 95 Oxygen Delivery Me thod Room Air Room Air 01/13/25 20:08 01/13/25 23:00 01/13/25 23:00 Temperature 98.2 F 97.8 F Pulse Rate 109 H Pulse Rate [Pulse Oximeter] 122 H Pulse Rate [Right Radial] Respiratory Rate 20 20 Blood Pressure [Le ft Arm] 110/88 134/99 H Pulse Oximetry 97 96 Oxygen Delivery Fl thod Room Air Room Air 01/13/25 23:00 01/13/25 23:00 01/14/25 03:00 Temperature 97.9 F Pulse Rate Pulse Rate [Pulse Oximeter] 122 H 95 Pulse Rate [Right Radial] Respiratory Rate 20 20 18 Blood Pressure [Le ft Arm] 117/93 H Pulse Oximetry 96 94 [facility] 01/14/25 07:00 01/14/25 07:00 01/14/25 07:00 Temperature 97.6 F Pulse Rate Pulse Rate [Pulse Oximeter] 110 H 110 H Pulse Rate [Right Radial] Respiratory Rate 18 Blood Pressure [Le ft Arm] 117/92 H Pulse Oximetry 94 94 [facility] 01/14/25 11:00 Temperature 98.0 F Pulse Rate Pulse Rate [Pulse Oximeter] 96 Pulse Rate [Right Radial] Respiratory Rate 20 Blood Pressure [Le ft Arm] 117/75 Pulse Oximetry 93 Oxygen Delivery Fl thod Room Air Labs Labs: Laboratory Results - last 24 hr 01/14/25 08:45 WBC 7.94 RBC 4.45 Hgb 14.1 Hct 42.2 MCV 95 MCH 32 MCHC 33 RDW Coeff of Kuldeep 13.4 Plt Count 170 Neut % (Auto) 59.4 Lymph % (Auto) 28.5 [place] % (Auto) 9.3 Eos % (Auto) 2.1 Baso % (Auto) 0.6 Neut # (Auto) 4.71 Lymph # (Auto) 2.26 [place] # (Auto) 0.70 Eos # (Auto) 0.17 Baso # (Auto) 0.05 Abs Immat Gran (auto) 0.01 Imm/Tot Granulo (auto) 0.1 Sodium 138 Potassium 4.0 Chloride 101 Carbon Dioxide 28 Anion Gap 9 BUN 21 Creatinine 1.1 Estimated Creat Clear 42.69 Estimated GFR 65 Glucose 112 Calcium 9.0
--- NOTE | 2025-01-14 14:38 | PC.SOCIAL ---
Discharge planning: general utility worker met with the pt, his , Jane, his daughter, Minda, and his granddaughter. general utility worker talked with the family about the importance of the pt taking his medications at home, on time, and also getting them refilled. The family stated that they felt they better understood the pt's medication regimen now and feel they will be better equipped to manage his medications and when to administer them when he returns home. Social work to follow-up as needed.
--- NOTE | 2025-01-14 18:44 | PC.NURSE ---
End of Shift Note CCU2 Patient was very pleasant and cooperative throughout shift. Afebrile. Patient is very hard of hearing, but cooperative. Family present in room. Family has been educated on the importance of output measuring, but this need reinforcement as they are continuously taking hat off toilet. Family has also been educated on the importance of using call light to take patient to BR. MERA wraps on patient bilaterally are to be left on through the night as per MD instructions. Patient alert to self and birthday. Call light within reach.
[2025-01-15] VITALS (7 sets, daily range): BP systolic 106–140; BP diastolic 67–100; PULSE 77–144; RESP 18–20; TEMP 36.4–37.1; O2SAT 94–95
--- NOTE | 2025-01-15 06:14 | PC.NURSE ---
Restful vitals per family request and subsequent order. Family at bedside throughout the night. Tele= a-fib with occasional rapid rate. No PRN Metoprolol needed although HR did consistently stay between 90-106 BPM. Several times throughout the night, HR briefly increased to 115-118 BPM, but resolved itself within a few minutes.
[2025-01-15] MEDS: METOPROLOL TARTRATE 100 MG TABLET PO ×2 (08:56→20:57)
[2025-01-15] MEDS: APIXABAN 5 MG TABLET PO ×2 (08:56→20:58)
[2025-01-15] MEDS: FUROSEMIDE 10 MG/ML inj 40 MG IVP ×2 (08:57→15:25)
[2025-01-15] MEDS: DIGOXIN 125 MCG TABLET PO (08:57)
[2025-01-15] MEDS: SODIUM CHLORIDE 0.9 % (FLUSH) 10 ML SYRINGE 5 ML IVF (09:55)
--- NOTE | 2025-01-15 11:18 | PC.NURSE ---
Patient heart rate sustained 85-94 from [id number], patient was in room alone until entered. Heart rate consistently below 100 and noted to elevate into the 100's when family or staff enter the room.
--- NOTE | 2025-01-15 15:54 | P.IMPN_ITS ---
Assessment and Plan Assessment and plan (1) (HFpEF) heart failure with preserved ejection fraction: Problem comment: - with evidence of exacerbation on admission 01/12 (weight gain of 3.45kg since discharge in November, tachypnea, BLE edema, elevated BNP) - admit for IV diuresis, potassium supplementation, close monitoring of Is/Os, electrolytes - restart BB - 01/13 diuresing well. Cr stable. Will give another dose of furosemide this afternoon. - 01/14 wt down 2.7kg from admission. 800cc out over 24 hours. Persistent LE edema. Cr stable. Continue to work on rate control and give another dose of lasix this afternoon. Change diuresis to IV. Try restful night vitals tonight to prevent startle and elevated HR in the early am. - 01/15 wt stable at 72.1 kg. LE edema improving. PM dose of lasix was held yesterday due to low BP. Likely able to transition to po lasix for homegoing tomorrow. Status: Acute (2) Atrial fibrillation with rapid ventricular response: Problem comment: - restart home medications (does not need a re-load of Digoxin) for rate control, prn options available - consider diltiazem gtt if no improvement on previous regimen - 01/13 Got most home meds this morning with good results. Weaning dilt drip, restart home oral diltiazem dosing. - 01/14 Off dilt drip. HR was good yesterday pm, then elevated this morning with startle for vitals. Give IV metoprolol IV this am. Continue home meds. - 01/15 Rate improving. It is likely that he was off his digoxin long enough that he was subtherapeutic and is now slowly loading over the last few days, which may explain why it has taken a while to get his heart rate under control with his usual medications. It also appears that his elevated heart rates correlate with anxiety levels and he will likely do very well 1 going home and back to his usual environment and sleep patterns. Since it has not yet been 24 hours since we have had good rate control, will hold off until tomorrow for discharge, but I anticipate he will likely be able to go home then. Status: Acute (3) Hyponatremia: Problem comment: - mild, Na of 132, presumably 2/2 CHF (during previous CHF hospitalization, noted similar presentation that improved with diuresis) - 01/13 Na stable at 132 - 01/14 RESOLVED Status: Acute (4) Abnormal TSH: Problem comment: - TSH suppressed on 01/12/25 with normal T4, normal TSH and T4, recheck as outpatient Status: Acute Plan - per above - requires inpatient management given clinical CHF exacerbation, a fib with RVR with HR >170 upon presentation, need for IV antiarrythmics and IV diuresis, not yet rate controlled, expect at least one more midnight. - family updated bedside, questions answered Total Time Spent Total Time Spent: Today I spent 50minutes seeing the patient, reviewing [facility] and [employer] notes/diagnostics/labs, discussing the care plan with our care team that includes social work, PT/OT, pharmacy, RT, fdc and documenting my impressions and plan in the medical record. Subjective Time Seen by Provider: 09:30 Date Seen: 01/15/25 Interval history: Doroteo's HR was better this morning. He had a different daughter in the room with him who noted that he gets worked up when woken in the middle of the night and then his HR elevates and it is difficult for him to calm down and get back to sleep. I noted that I had written for restful night vitals yesterday, but if his vitals are abnormal or there are any concerns, they still have to wake him up to see how he is and do a set of vital signs. His daughter notes that he has been better about elevating his legs overnight and notes that they are much less swollen this morning. His nurse and I are noting a correlation with certainty events and anxieties with elevated heart rates. It does seem that when I speak with him about not being able to go home yet, that his heart rate gets elevated and then it is harder for him to calm down afterward. His heart rate was also elevated when his family was in the room, but when the left for a while, his heart rate was in the 80s consistently. Exam Narrative: Exam Narrative: General: No acute distress. Awake, alert, oriented to self. Very hard of hearing. No pallor. No jaundice. Oropharynx: Clear. Mucous membranes moist. Cardiovascular: Regular rate and rhythm. No murmurs, gallops, or rubs. Respiratory: Clear to auscultation bilaterally. No wheezes or crackles. Abdomen: Bowel sounds present. Soft, nondistended, nontender. Extremities: 1-2+ bilateral lower extremity pitting edema, unchanged. Const: Vital Signs, click to edit/add: Vital Signs - 24 hr 01/14/25 19:00 01/14/25 23:00 01/14/25 23:00 Temperature 98.1 F Pulse Rate Pulse Rate [Pulse Oximeter] 103 H 103 H Respiratory Rate 20 20 20 Blood Pressure [Le ft Arm] 104/84 Pulse Oximetry 94 94 Oxygen Delivery Me thod Room Air Room Air 01/14/25 23:00 01/14/25 23:00 01/14/25 23:30 Temperature 98.3 F Pulse Rate 101 H Pulse Rate [Pulse Oximeter] 109 H Respiratory Rate 20 18 Blood Pressure [Le ft Arm] 111/82 Pulse Oximetry 93 Oxygen Delivery Tx thod Room Air 01/15/25 06:00 01/15/25 07:00 01/15/25 07:00 Temperature 97.5 F L Pulse Rate Pulse Rate [Pulse Oximeter] 113 H 113 H Respiratory Rate 18 20 Blood Pressure [Le ft Arm] 140/87 H Pulse Oximetry 94 Oxygen Delivery Tx thod Room Air 01/15/25 07:00 01/15/25 07:00 01/15/25 11:00 Temperature 97.9 F Pulse Rate 144 H Pulse Rate [Pulse Oximeter] 96 Respiratory Rate 20 Blood Pressure [Le ft Arm] 106/81 Pulse Oximetry 94 95 Oxygen Delivery Tx thod Room Air Room Air 01/15/25 15:00 01/15/25 15:00 01/15/25 15:00 Temperature 98.7 F Pulse Rate Pulse Rate [Pulse Oximeter] 79 79 Respiratory Rate 20 Blood Pressure [Le ft Arm] 114/67 Pulse Oximetry 95 95 Oxygen Delivery Tx thod Room Air Room Air
--- NOTE | 2025-01-15 18:42 | PC.NURSE ---
End of Shift Note CCU2 Patient has been pleasant and cooperative throughout shift. VSS. Afebrile. Alert and oriented x 2. Unable to get strict I&O's due to family's non-compliance. Family educated on the importance of strict urine output measurement several times throughout the shift. Patient is very hard of hearing. MERA wraps bilaterally as per MD's orders. Patient resting on the recliner. Patient does not use call light appropriately. Call light within reach.
[2025-01-16 05:33] VITALS: RESP 18
[2025-01-16 07:00] VITALS: BP 124/96; PULSE 95; PULSE 97; RESP 20; TEMP 36.6; O2SAT 91
[2025-01-16 07:29] LABS: Chloride* 99 mmol/L (96-114); Potassium* 3.6 mmol/L (3.6-5.1); Sodium* 136 mmol/L (135-149)
[2025-01-16 07:32] LABS: Anion Gap 6 mEq/L (7-15); Blood Urea Nitrogen* 19 mg/dL (7-30); Calcium* 8.7 mg/dL (8.4-10.6); Carbon Dioxide* 31 mmol/L (20-32); Creatinine* 1.0 mg/dL (0.5-1.5); Est. Creatinine Clearance* 46.96; Estimated Glomerular Filt Rate 73 ml/min; Glucose* 105 mg/dL (60-115)
[2025-01-16 09:01] VITALS: PULSE 116
[2025-01-16] MEDS: FUROSEMIDE 10 MG/ML inj 40 MG IVP (09:01)
[2025-01-16] MEDS: DIGOXIN 125 MCG TABLET PO (09:01)
[2025-01-16] MEDS: APIXABAN 5 MG TABLET PO (09:02)
[2025-01-16] MEDS: METOPROLOL TARTRATE 100 MG TABLET PO (09:02)
[2025-01-16] MEDS: SODIUM CHLORIDE 0.9 % (FLUSH) 10 ML SYRINGE 5 ML IVF (09:57)
--- NOTE | 2025-01-16 10:40 | P.DS_ITS ---
DS: Providers Provider Date Seen: 01/16/25 Date of admission: 01/12/25 16:17 Primary care physician: Dayday Rivera MD Admitting Clinician: Darby Nazario MD Consults: 01/12/25 16:04 Consult to Nutrition [CONS] Routine Comment: Reason for consult:: Miscellaneous Attending Physician on discharge: DANITZA Alvarado, [facility] Date of Discharge: 01/16/25 DS: Diagnosis Discharge Diagnosis (1) (HFpEF) heart failure with preserved ejection fraction: Status: Acute Problem details: - with evidence of exacerbation on admission 01/12 (weight gain of 3.45kg since discharge in November, tachypnea, BLE edema, elevated BNP) - admit for IV diuresis, potassium supplementation, close monitoring of Is/Os, electrolytes - restart BB - 01/13 diuresing well. Cr stable. Will give another dose of furosemide this afternoon. - 01/14 wt down 2.7kg from admission. 800cc out over 24 hours. Persistent LE edema. Cr stable. Continue to work on rate control and give another dose of lasix this afternoon. Change diuresis to IV. Try restful night vitals tonight to prevent startle and elevated HR in the early am. - 01/15 wt stable at 72.1 kg. LE edema improving. PM dose of lasix was held yesterday due to low BP. Likely able to transition to po lasix for homegoing tomorrow. (2) Atrial fibrillation with rapid ventricular response: Status: Acute Problem details: - restart home medications (does not need a re-load of Digoxin) for rate control, prn options available - consider diltiazem gtt if no improvement on previous regimen - 01/13 Got most home meds this morning with good results. Weaning dilt drip, restart home oral diltiazem dosing. - 01/14 Off dilt drip. HR was good yesterday pm, then elevated this morning with startle for vitals. Give IV metoprolol IV this am. Continue home meds. - 01/15 Rate improving. It is likely that he was off his digoxin long enough that he was subtherapeutic and is now slowly loading over the last few days, which may explain why it has taken a while to get his heart rate under control with his usual medications. It also appears that his elevated heart rates correlate with anxiety levels and he will likely do very well 1 going home and back to his usual environment and sleep patterns. Since it has not yet been 24 hours since we have had good rate control, will hold off until tomorrow for discharge, but I anticipate he will likely be able to go home then. (3) Hyponatremia: Status: Acute Problem details: - mild, Na of 132, presumably 2/2 CHF (during previous CHF hospitalization, noted similar presentation that improved with diuresis) - 01/13 Na stable at 132 - 01/14 RESOLVED (4) Abnormal TSH: Status: Acute Problem details: - TSH suppressed, chronically, on 01/12/25 with normal T4, normal TSH and T4, recheck as outpatient DS: Summary Hospital Course Hospital Course: Course of care and details as noted above. Admitted with heart failure exacerbation, it managed with IV diuresis, transition to oral diuretic on discharge. Will continue with bilateral lower extremity compression wear. Electrolytes repleted. AFib with RVR responding appropriately to home medications. Discussed with patient and his daughter importance of taking medications as prescribed, not missing doses, staying up-to-date on refills. Outpatient follow-up with PCP as well as recheck of TSH. Remainder of chronic medical comorbidities were monitored and managed with home medications. Status at Discharge Functional status at discharge: independent ambulation Overall status at discharge: patient is back to baseline Time Spent with Patient Time attestation: Total time spent providing and/or coordinating discharge services: Time spent: Greater than 30 minutes Exam Narrative: Exam Narrative: PHYSICAL EXAM General: Pleasant, conversant, NAD Cardiovascular: IRRR Pulmonary: No dyspnea Neurological: Alert, answering questions appropriately Skin: Warm, dry. Const: Vital Signs, click to edit/add: Vital Signs - 24 hr 01/15/25 11:00 01/15/25 15:00 01/15/25 15:00 Temperature 97.9 F 98.7 F Pulse Rate Pulse Rate [Pulse Oximeter] 96 79 Respiratory Rate 20 20 Blood Pressure [Le ft Arm] 106/81 114/67 Pulse Oximetry 95 95 95 Oxygen Delivery Me thod Room Air Room Air Room Air 01/15/25 15:00 01/15/25 15:00 01/15/25 19:00 Temperature 98.1 F Pulse Rate 77 Pulse Rate [Pulse Oximeter] 79 111 H Respiratory Rate 18 Blood Pressure [Le ft Arm] 122/100 H Pulse Oximetry 95 Oxygen Delivery Me thod Room Air 01/15/25 23:00 01/15/25 23:00 01/15/25 23:00 Temperature Pulse Rate 78 Pulse Rate [Pulse Oximeter] Respiratory Rate 18 Blood Pressure [Le ft Arm] Pulse Oximetry 95 Oxygen Delivery Me thod Room Air 01/15/25 23:30 01/16/25 05:33 01/16/25 07:00 Temperature Pulse Rate 95 Pulse Rate [Pulse Oximeter] Respiratory Rate 18 18 Blood Pressure [Le ft Arm] Pulse Oximetry Oxygen Delivery Me thod 01/16/25 07:00 01/16/25 07:00 01/16/25 07:00 Temperature 98 F Pulse Rate Pulse Rate [Pulse Oximeter] 97 97 Respiratory Rate 20 Blood Pressure [Le ft Arm] 124/96 H Pulse Oximetry 91 91 Oxygen Delivery Me thod Room Air Room Air 01/16/25 09:01 Temperature Pulse Rate 116 H Pulse Rate [Pulse Oximeter] Respiratory Rate Blood Pressure [Le ft Arm] Pulse Oximetry Oxygen Delivery Me thod DS: Data Data Completed and Pending Labs on day of discharge: Labs from last 24 hours 01/16/25 06:38 Sodium 136 Potassium 3.6 Chloride 99 Carbon Dioxide 31 Anion Gap 6 L BUN 19 Creatinine 1.0 Estimated Creat Clear 46.96 Estimated GFR 73 Glucose 105 Calcium 8.7 Imaging Chest x-ray: Attestation: I have reviewed the pertinent imaging results. Radiologist's impression: FINDINGS: The sensitivity and specificity of the exam are moderately limited by the patient`s body habitus. Mediastinum: The mediastinum is normal in appearance. Mild, stable cardiomegaly is noted. Lung: Small lung volumes are present with perihilar interstitial edema, pulmonary vascular congestion and bibasilar atelectasis. Small bilateral pleural effusions are suspected. No pneumothorax is identified. Bone and Soft tissue: Unremarkable for age. IMPRESSIONS: 1. Small lung volumes are present with perihilar interstitial edema, pulmonary vascular congestion and bibasilar atelectasis. Small bilateral pleural effusions are suspected. 2. Mild, stable cardiomegaly is noted. Discharge Plan Discharge Disposition: Home, Self-Care Date of Admission: 01/12/25 16:17 Attending Provider on Discharge: Caity Torres Primary Care Provider: Dayday Rivera Condition: Stable Anticipated Discharge Date/Time: 01/16/25 10:39 Discharge Medications: Continued multivitamin Tablet 1 tab PO DAILY calcium carbonate [Calcium 500] 500 mg calcium (1,250 mg) tablet,chewable 500 mg PO DAILY cholecalciferol (vitamin D3) 125 mcg (5,000 unit) capsule 125 mcg PO DAILY metoprolol tartrate 100 mg Tablet 100 mg PO BID Qty: 60 0RF Rx Instructions: This is a lifelong medicine, refills through PCP diltiazem HCl [DILT-XR] 120 mg Capsule,Ext.Rel 24h Degradable 120 mg PO BID Qty: 60 0RF Rx Instructions: This is a lifelong medicine, refills through PCP digoxin 125 mcg (0.125 mg) Tablet 125 mcg PO DAILY Qty: 30 0RF Rx Instructions: This is a lifelong medicine, refills through PCP furosemide 20 mg tablet 40 mg PO DAILY@0800 Qty: 120 0RF Rx Instructions: This is a lifelong medicine, refills through PCP Eliquis 5 mg Tablet 5 mg PO BID Qty: 60 0RF Rx Instructions: This is a lifelong medicine, refills through PCP Discharge Orders: Discharge Order (Routine); Ordered 01/16/25 Ordered By: Caity Torres Patient Education: Metoprolol (By mouth), Diltiazem (By mouth), Digoxin (By mouth), Furosemide (By mouth), Multivitamins with Minerals (By mouth), Calcium Supplement (By mouth), Apixaban (By mouth), Cholecalciferol (By mouth) Additional Instructions: Cardiology in 1 month Activity Level: No Restrictions Discharge Diet: 2 gm Sodium Follow Up Appointments: Dayday Rivera MD [Primary Care Provider, [facility]] - 01/24/25 12:45 pm Referral Note: [facility]
--- NOTE | 2025-01-16 13:08 | PC.NURSE ---
Discharge Note CCU1 Patient was pleasant and cooperative throughout shift. VSS. Afebrile. Education given to daughter, spouse and patient about patient's medications, condition, and the importance of medication compliance. Education given about edema-wear to patient and family. Patient A&Ox3, discharged at 12:45 accompanied by spouse.
--- NOTE | 2025-01-16 14:44 | PC.SOCIAL ---
Discharge planning: Met with the pt and his before discharge and explained The Important Message from Medicare form and their right to appeal the pt's discharge and they had no concerns with the pt's discharge today and were looking forward to going home. Social work to follow-up as needed.
== END 2025-01-16 12:45 | disposition home or self-care (01) | DRG 292 ==
LOC: ED 14:03 → MEDSURG 15:05
PROVIDERS: Family Medicine; Admitting Provider Family Medicine; Emergency Provider Emergency Medicine; PCP Family Medicine; Visit Provider Family Medicine
DX: I50.33 Acute on chronic diastolic (congestive) heart failure (principal); E87.1 Hypo-osmolality and hyponatremia; I48.91 Unspecified atrial fibrillation; R94.6 Abnormal results of thyroid function studies; Z80.0 Family history of malignant neoplasm of digestive organs; Z79.01 Long term (current) use of anticoagulants
CPT/HCPCS: 36415; 71045; 80048; 80053; 80076; 83605; 83735; 83880; 84439; 84443; 84484; 85025; 86140; 93005; 94761; 99284; 99285; A9270; J1938; J3475; J3490; J7050

== ENCOUNTER 2025-02-14 10:37 | Outpatient (CLI) | payer MEDICARE, SELFPAY | END 2025-02-14 10:38 | disposition home or self-care (01) | LOC: LKVREF 10:38 | PROVIDERS: PCP Family Medicine; Visit Provider Family Medicine | DX: I50.32 Chronic diastolic (congestive) heart failure (principal) | CPT/HCPCS: 80048 ==

== ENCOUNTER 2025-03-14 15:24 | Outpatient (CLI) | payer MEDICARE, SELFPAY | END 2025-03-14 15:25 | disposition home or self-care (01) | LOC: LKVREF 15:25 | PROVIDERS: PCP Family Medicine; Visit Provider Family Medicine | DX: I50.32 Chronic diastolic (congestive) heart failure (principal); N18.31 Chronic kidney disease, stage 3a | CPT/HCPCS: 80048 ==